=== PATIENT | female | born 1980 | race African-American/Black ===

== ENCOUNTER 2018-02-22 15:26 | Observation (INO) | payer SELFPAY ==
[~2018-02-22] VITALS: Ht 165.1 cm; Wt 64.4 kg
[2018-02-22] MEDS ORDERED: ASPIRIN 81 MG CHEW TAB PO ONE (15:45)
[2018-02-22 16:04] LABS: BASOPHILS % 0.4 % (0.0-1.0); EOSINOPHILS # (AUTO) 0.2 (0.0-0.4); EOSINOPHILS % 3.1 % (0.0-6.0); HEMATOCRIT 37.3 % (34.2-44.1); HEMOGLOBIN 12.6 g/dL (12.0-16.0); LYMPHOCYTES # (AUTO) 2.5 (1.0-3.2); LYMPHOCYTES % 33.6 % (18.0-39.1); MEAN CORPUSCULAR HEMOGLOBIN 32.5 pg (28-32); MEAN CORPUSCULAR HGB CONC 33.8 g/dL (31-35); MEAN CORPUSCULAR VOLUME 96.1 fL (81-99); MONOCYTES # (AUTO) 0.6 (0.2-0.8); MONOCYTES % 7.9 % (4.4-11.3); NEUTROPHILS # (AUTO) 4.1 (2.1-6.9); NEUTROPHILS % 54.7 % (38.7-80.0); PLATELET COUNT 374 x10e3/uL (140-360); RED BLOOD COUNT 3.88 x10e6/uL (3.6-5.1); RED CELL DISTRIBUTION WIDTH 12.5 % (11.7-14.4)
[2018-02-22 16:13] LABS: INR 0.93; PROTHROMBIN TIME 11.7 seconds (11.9-14.5)
[2018-02-22 16:13] LABS: BILIRUBIN,URINE NEGATIVE (NEGATIVE); CLARITY,URINE CLEAR (CLEAR); COLOR,URINE YELLOW (YELLOW); KETONES,URINE NEGATIVE (NEGATIVE); LEUKOCYTE ESTERASE ,URINE NEGATIVE (NEGATIVE); NITRITE,URINE NEGATIVE (NEGATIVE); PROTEIN,URINE DIPSTICK NEGATIVE (NEGATIVE); URINE UROBILINOGEN 0.2 mg/dL (0.2 - 1)
[2018-02-22 16:14] LABS: PARTIAL THROMBOPLASTIN TIME 23.6 seconds (23.8-35.5)
[2018-02-22 16:16] LABS: EPITHELIAL CELLS,URINE FEW /LPF; RBC,URINE 0-5 /HPF (0-5); WBC,URINE (MAN) 0-5 /HPF (0-5)
[2018-02-22 16:17] LABS: MUCUS,URINE FEW (RARE)
[2018-02-22 16:23] LABS: ALANINE AMINOTRANSFERASE 26 IU/L (0-55); ALBUMIN 3.7 g/dL (3.5-5.0); ALBUMIN/GLOBULIN RATIO 1.1 (0.8-2.0); ALKALINE PHOSPHATASE 60 IU/L (40-150); ANION GAP 13.4 mmol/L (8-16); BLOOD UREA NITROGEN 15 mg/dL (7-26); BUN/CREATININE RATIO 13 (6-25); CALCIUM 9.6 mg/dL (8.4-10.2); CARBON DIOXIDE 32 mmol/L (22-29); CHLORIDE 98 mmol/L (98-107); CREATINE KINASE 112 IU/L (29-168); CREATININE, SERUM 1.14 mg/dL (0.57-1.11); POTASSIUM 4.4 mmol/L (3.5-5.1); SODIUM 139 mmol/L (136-145)
[2018-02-22 16:24] LABS: EST GLOMERULAR FILTRATION RATE > 60 ML/MIN (60-)
[2018-02-22 16:25] LABS: GLUCOSE 546 mg/dL (74-118)
--- NOTE | 2018-02-22 17:36 | Diagnostic Imaging Report ---
PROCEDURE: A single AP view of the chest. COMPARISON: None. INDICATIONS: CHEST PAIN SINCE YESTERDAY FINDINGS: Lines/tubes: None. Lungs: The lungs are well inflated and clear. There is no evidence of pneumonia or pulmonary edema. Pleura: There is no pleural effusion or pneumothorax. Heart and mediastinum: The heart and the mediastinum are unremarkable. Bones: No acute bony abnormality. IMPRESSION: 1. No acute cardiopulmonary disease. Dictated by: Mack Amado M.D. on 02/22/2018 at 17:42 Electronically approved by: Mack Amado M.D. on 02/22/2018 at 17:42
[2018-02-22] MEDS ORDERED: INSULIN REGULAR, HUMAN 100 UNIT/1 ML 3ML VIAL IV STA (17:58)
[2018-02-22] MEDS ORDERED: SODIUM CHLORIDE 0.9% 1000ML 1,000 ML ONE (18:05)
[2018-02-22] MEDS ORDERED: SODIUM CHLORIDE 0.9% 1000ML 1,000 ML IV SCH (18:15)
[2018-02-22] MEDS ORDERED: CEFTRIAXONE SOD 1 GM VIAL IV SCH (18:15)
[2018-02-22] MEDS ORDERED: SODIUM CHLORIDE FLUSH 10 ML SYR INJ PRN (18:30)
[2018-02-22] MEDS ORDERED: MORPHINE SULFATE 2 MG/ML SYR IV PRN (18:30)
[2018-02-22] MEDS ORDERED: ONDANSETRON HCL INJ 2 MG/ML VIAL IV PRN (18:30)
[2018-02-22] MEDS ORDERED: DEXTROSE 50% SYRINGE 50 ML IV PRN (18:30)
[2018-02-22] MEDS ORDERED: CLOPIDOGREL BISULFATE 75 MG TAB PO STA (18:42)
[2018-02-22] MEDS: METOPROLOL TARTRATE 25 MG TAB PO SCH (19:19)
--- NOTE | 2018-02-22 20:53 | History and Physical ---
This is a 37-year-old female who comes in with chest pain. HISTORY OF PRESENT ILLNESS: Ms. Alonzo is a known type 1 diabetic with uncontrolled diabetes mellitus. She was in her usual state of health until this morning when the patient started to have chest pain after dropping her child off. The chest pain is characterized as squeezing in nature and 6/10 in severity with no radiation. The patient came into the emergency room and was admitted for chest pain. The patient has a history of coronary artery disease. PAST MEDICAL HISTORY: History of coronary artery disease with left heart cath with a stent and she is not sure where she had it, but she had a 90% block. She apparently still has a 30% blockage in some artery, but unsure about her medical history. MEDICATIONS: She is unsure, but of what she can remember she takes Plavix, aspirin 81 mg, lisinopril, carvedilol, insulin 30 units in the morning and 15 units of regular in the morning and 20 and 10 of regular in the evening. She also takes Valtrex also for genitalia herpes infections. PAST SURGICAL HISTORY: Left heart cath, history of cholecystectomy tube. PHYSICAL EXAMINATION GENERAL: The patient is alert and oriented x3. HEENT: Normocephalic, atraumatic. Pupils react to light and accommodation. CVS: S1 and S2 normal. Regular rate and rhythm. ABDOMEN: Nontender and nondistended. EXTREMITIES: No cyanosis, clubbing or edema. LABORATORY DATA: Chemistries: Sodium 139, potassium 4.4, BUN 15, creatinine 1.14, glucose 546. Troponin less than 0.001. Hematology: White count is 7.45. Neutrophil count is 54.7. Urine negative for ketones. ASSESSMENT: 1. Chest pain. 2. History of coronary artery disease. 3. Uncontrolled diabetes mellitus. Will start her back on insulin. 4. Will restart home medications when we get it. 5. Will continue to monitor the patient. 6. Dr. Oconnell has been consulted for chest pain. 7. Further recommendations depending on clinical course. 8. Will see the patient in morning and will check her labs in the morning. Job#: [id number]
[2018-02-22] MEDS ORDERED: ATORVASTATIN 20 MG TAB PO SCH (21:00)
[2018-02-22] MEDS ORDERED: NPH, HUMAN INSULIN ISOPHANE 100 UNIT/1 ML 3ML VIAL SQ SCH (21:00)
[2018-02-22 21:16] LABS: ALANINE AMINOTRANSFERASE 23 IU/L (0-55); ALBUMIN 3.2 g/dL (3.5-5.0); ALBUMIN/GLOBULIN RATIO 1.1 (0.8-2.0); ALKALINE PHOSPHATASE 52 IU/L (40-150); BLOOD UREA NITROGEN 17 mg/dL (7-26); BUN/CREATININE RATIO 22 (6-25); CALCIUM 9.1 mg/dL (8.4-10.2); CARBON DIOXIDE 28 mmol/L (22-29); CHLORIDE 105 mmol/L (98-107); CREATININE, SERUM 0.78 mg/dL (0.57-1.11); EST GLOMERULAR FILTRATION RATE > 60 ML/MIN (60-); GLUCOSE 253 mg/dL (74-118); SODIUM 141 mmol/L (136-145)
--- NOTE | 2018-02-22 21:41 | Consultation ---
DATE OF CONSULTATION: February 22, 2018 CARDIOLOGY CONSULTATION REASON FOR CONSULTATION: Chest pain. HISTORY OF PRESENT ILLNESS: Ms. Alonzo is a 37-year-old lady with past medical history of type 1 diabetes, diagnosed 24 hours ago; CAD with prior history of stenting in December of 2016 in [place], [place]; history of bipolar disorder who presents with chest pain. Patient reports chest pain started yesterday morning at 5 a.m. and reports it as a constant, sharp left sternal stabbing sensation radiating to her left back region. She reports the pain 6/10 to 8/10, slightly worsened when she takes a deep breath in. No tenderness and not related to any position. She denies any shortness of breath with the chest pain. She reports that this chest pain was in certain ways similar to her prior chest pain back approximately a year ago, which eventually led to her stenting done. Thus far, despite her ongoing and continuous chest pain, her first set of enzyme is strongly negative with a troponin of less than 0.001 and a CK-MB of 1.2. EKG reveals normal sinus rhythm and nonspecific T-wave changes. We had an extensive discussion with the patient in terms of differential diagnosis. Patient does report that she is in the process of moving here and recently drove from [place], [place] approximately a week ago. She denies any calf pain or tenderness and denies any lower extremity swelling. PAST MEDICAL HISTORY: 1. Type 1 diabetes, diagnosed 24 years ago. 2. Coronary artery disease with prior history of stenting in December of 2016, unknown anatomy. 3. Bipolar disorder. PAST SURGICAL HISTORY: 1. History of hysterectomy in 2013. 2. History of bilateral tubal ligation, 2004. 3. History of trigger finger surgery in June of 2016. 4. History of left lump surgery in 2008. FAMILY HISTORY: Mother alive at 63 with hypertension. Father alive, unknown history. SOCIAL HISTORY: She is a 3 cigarettes per day smoker. Denies any alcohol or illicit drug use. ALLERGIES: NO KNOWN DRUG ALLERGIES. HOME MEDICATIONS: Includes: 1. Plavix 75 mg daily. 2. Aspirin 81 mg daily. 3. Lisinopril daily. 4. Insulin NPH 30 units subcutaneous q.a.m. and 20 units NPH subcutaneous q.p.m. 5. Insulin regular 15 units subcutaneous q.a.m. and 10 units subcutaneous nightly. REVIEW OF SYSTEMS: GENERAL: Denies any fevers, chills, or any weight changes. HEENT: Has occasional headaches. No sore throat, stuffy nose. RESPIRATORY: Chest pain as per HPI. Denies any shortness of breath. CARDIOVASCULAR: As per HPI. Denies any palpitations, orthopnea, PND. GI: Denies any abdominal pain, nausea, vomiting, bright red blood per rectum, melena, hematemesis. : Denies any dysuria, pyuria, or any changes in urinary frequency. MUSCULOSKELETAL: Denies any knee pain, arthritis like swelling. ENDOCRINE: Positive for type 1 diabetes. NEUROLOGIC: Positive for slight neuropathy. Denies any focal weakness, seizures. Remainder of review of systems negative otherwise mentioned. PHYSICAL EXAMINATION: VITAL SIGNS: Height of 65 inches, weight of 137 pounds, BMI is 22.8. Temperature of 98.0, pulse of 92, respiratory rate 18, blood pressure is 151/98, O2 sat 99% on room air. GENERAL: This is a well-nourished, well-developed lady, who is currently in no apparent distress. HEENT: Normocephalic, atraumatic. Pupils are equal, round, and reactive to light. Extraocular movements are intact. Oropharynx is clear. NECK: No elevation of jugular venous pulsation. No carotid bruits. CARDIOVASCULAR: Regular rate and rhythm. Normal S1 and S2. Soft 1/6 systolic murmur at left lower sternal border. There is no chest wall tenderness to palpation. LUNGS: Clear to auscultation bilaterally with fair air entry. ABDOMEN: Soft, nontender, nondistended with normoactive bowel sounds. No hepatosplenomegaly. BACK: No costovertebral angle tenderness. EXTREMITIES: Warm with 2+ bilateral radial pulses, 1+ to 2+ pedal pulses, and 1+ to 2+ femoral pulses. NEUROLOGIC: Cranial nerves II through XII are intact. Strength is 5/5. Grossly nonfocal. PSYCH: Positive for anxiety. No hallucinations. LABS: White count is 7.4, hemoglobin 12.6, hematocrit of 37.3, platelets of 374,000. Sodium 139, potassium 4.4, chloride 98, bicarb 32, BUN 15, creatinine 1.14, glucose of 546, calcium of 9.6. AST 24, ALT 26, alk phos 60, total protein 7.1, albumin of 3.7. BNP is 67.5. Troponin is less than 0.001. MB is 1.2. INR is 0.93. UA is negative except for 3+ glucose. Chest x-ray is unremarkable. EKG is normal sinus rhythm and nonspecific T-wave changes. DIAGNOSES: 1. Precordial chest pain, here for rule out acute coronary syndrome. 2. Coronary artery disease with prior history of percutaneous coronary intervention in December of 2016. 3. Type 1 diabetes with complications, diagnosed 24 years ago with current hyperglycemia. 4. Tobacco dependence. PLAN/RECOMMENDATIONS: 1. Will continue aspirin and Plavix therapy. 2. Statin therapy. 3. Beta cody therapy. Continue YARA inhibitor therapy. 4. Restart home insulin therapy. 5. Cycle her serial cardiac enzymes. 6. In light of her recent move from [place], [place] and features of the chest pain, will go ahead and order CT PE protocol to rule out that process. 7. Depending on the labs, if negative and patient agrees, will proceed with ischemic risk stratification tomorrow a.m. with TMT. Otherwise, if biomarkers are positive or clinical status changes, will go ahead and proceed with cardiac catheterization. All this was explained to the patient. Patient is agreeable. Job#: [id number] DR MCCLAIN
[2018-02-22] MEDS: SODIUM CHLORIDE 0.9% 1000ML 1,000 ML IV SCH (22:16)
[2018-02-22] MEDS: INSULIN REGULAR, HUMAN 100 UNIT/1 ML 3ML VIAL SQ SCH (22:16)
--- NOTE | 2018-02-22 22:19 | Diagnostic Imaging Report ---
EXAM: CT Chest WITH contrast 02/22/2018 8:32 PM INDICATION: Chest pain COMPARISON: None TECHNIQUE: Chest was scanned utilizing a multidetector helical scanner from the lung apex through the level of the adrenal glands without administration of IV contrast. Coronal and sagittal reformations were obtained. PE protocol was performed. IV CONTRAST: 65 mL of Isovue-370 RADIATION DOSE: Total DLP: 400.91 mGy*cm Estimated effective dose: (DLP x 0.014 x size factor) mSv COMPLICATIONS: None FINDINGS: LINES/ TUBES: None. LUNGS AND AIRWAYS: The lungs are unremarkable. Airways are normal. PLEURA: The pleural spaces are clear. HEART AND MEDIASTINUM: The thyroid gland is normal. No mediastinal, hilar or axillary lymphadenopathy. The heart is normal in size.. There is no pericardial effusion. There are mild atherosclerotic calcifications in the aorta and coronary arteries. Left coronary stent along the circumflex artery. UPPER ABDOMEN: 4 mm stone in the upper moiety of the left renal collecting system. BONES: The visualized bony thorax is within normal limits. SOFT TISSUES: Unremarkable. IMPRESSION: 1. No evidence of acute intrathoracic abnormality. No evidence of pulmonary embolism. 2. There is a 4 mm stone in the upper moiety of the left renal collecting system. Signed by: Dr. Jean Marie Cash M.D. on 02/22/2018 10:16 PM
[2018-02-22 22:59] VITALS: BP 131/84
[2018-02-23] VITALS: BP 131/84
[2018-02-23 00:29] LABS: CREATINE KINASE 82 IU/L (29-168)
[2018-02-23] MEDS ORDERED: SODIUM CHLORIDE 0.9% 50ML 50 ML ONE (00:50)
[2018-02-23] MEDS ORDERED: IOPAMIDOL 370 MG/ML 200 ML INFUS..BTL INJ ONE (00:50)
[2018-02-23 04:00] VITALS: BP 121/71
[2018-02-23] MEDS: METOPROLOL TARTRATE 25 MG TAB PO SCH (06:09)
[2018-02-23 06:10] LABS: BASOPHILS % 0.3 % (0.0-1.0); EOSINOPHILS # (AUTO) 0.4 (0.0-0.4); EOSINOPHILS % 4.2 % (0.0-6.0); HEMATOCRIT 33.7 % (34.2-44.1); HEMOGLOBIN 11.1 g/dL (12.0-16.0); LYMPHOCYTES # (AUTO) 2.9 (1.0-3.2); LYMPHOCYTES % 33.4 % (18.0-39.1); MEAN CORPUSCULAR HEMOGLOBIN 31.9 pg (28-32); MEAN CORPUSCULAR HGB CONC 32.9 g/dL (31-35); MEAN CORPUSCULAR VOLUME 96.8 fL (81-99); MONOCYTES # (AUTO) 0.8 (0.2-0.8); MONOCYTES % 9.5 % (4.4-11.3); NEUTROPHILS # (AUTO) 4.6 (2.1-6.9); NEUTROPHILS % 52.4 % (38.7-80.0); PLATELET COUNT 327 x10e3/uL (140-360); RED BLOOD COUNT 3.48 x10e6/uL (3.6-5.1); RED CELL DISTRIBUTION WIDTH 12.7 % (11.7-14.4)
--- NOTE | 2018-02-23 06:18 | Diagnostic Imaging Report ---
EXAMINATION: CHEST SINGLE (PORTABLE) INDICATION: Chest pain. COMPARISON: CT of the chest on 02/22/2018 FINDINGS: TUBES and LINES: None. LUNGS: Lungs are well inflated. Lungs are clear. There is no evidence of pneumonia or pulmonary edema. PLEURA: No pleural effusion or pneumothorax. HEART AND MEDIASTINUM: The cardiomediastinal silhouette is unremarkable. BONES AND SOFT TISSUES: No acute osseous lesion. Soft tissues are unremarkable. UPPER ABDOMEN: No free air under the diaphragm. IMPRESSION: No acute thoracic abnormality. Signed by: Dr. Jean Marie Cash M.D. on 02/23/2018 6:15 AM
[2018-02-23] MEDS ORDERED: HUMULIN R100 UNIT/2 SQ ×2 (06:28)
[2018-02-23] MEDS ORDERED: ASPIR 8181 MG PO (06:28)
[2018-02-23] MEDS ORDERED: PLAVIX75 MG PO (06:28)
[2018-02-23] MEDS ORDERED: LISINOPRIL2.5 MG PO (06:28)
[2018-02-23] MEDS ORDERED: VALTREX500 MG PO (06:28)
[2018-02-23] MEDS ORDERED: NOVOLIN N100 UNIT/1 SQ ×2 (06:28)
[2018-02-23] MEDS ORDERED: TOPAMAX25 MG PO (06:28)
[2018-02-23 06:38] LABS: INR 0.92; PROTHROMBIN TIME 11.6 seconds (11.9-14.5)
[2018-02-23 06:46] LABS: ANION GAP 10.9 mmol/L (8-16); BLOOD UREA NITROGEN 17 mg/dL (7-26); BUN/CREATININE RATIO 26 (6-25); CALCIUM 8.9 mg/dL (8.4-10.2); CARBON DIOXIDE 25 mmol/L (22-29); CHLORIDE 106 mmol/L (98-107); CHOL/HDL RATIO 2.2 (3.0-3.6); CHOLESTEROL 203 MD/DL (0-199); CREATININE, SERUM 0.66 mg/dL (0.57-1.11); EST GLOMERULAR FILTRATION RATE > 60 ML/MIN (60-); GLUCOSE 120 mg/dL (74-118); HDL CHOLESTEROL 93 MG/DL (40-60); LDL CHOLESTEROL 90 MG/DL (60-130); POTASSIUM 3.9 mmol/L (3.5-5.1); SODIUM 138 mmol/L (136-145); TRIGLYCERIDES 102 MG/DL (0-149)
[2018-02-23 07:09] LABS: CREATINE KINASE MB 0.8 ng/mL (0-5.0)
[2018-02-23] MEDS: INSULIN REGULAR, HUMAN 100 UNIT/1 ML 3ML VIAL SQ SCH (07:30)
[2018-02-23 07:34] VITALS: BP 139/77
[2018-02-23 08:03] VITALS: BP 141/90
[2018-02-23] MEDS ORDERED: NPH, HUMAN INSULIN ISOPHANE 100 UNIT/1 ML 3ML VIAL SQ SCH (09:00)
[2018-02-23] MEDS ORDERED: ASPIRIN 325 MG TAB EC PO SCH (09:00)
[2018-02-23] MEDS: SODIUM CHLORIDE 0.9% 1000ML 1,000 ML IV SCH (10:05)
--- NOTE | 2018-02-23 10:23 | Cardiology Report ---
DATE OF STUDY: February 23, 2018 EXERCISE TREADMILL STRESS TEST INDICATIONS FOR STUDY: A 37-year-old lady with history of type 1 diabetes and prosthetic coronary artery about a year ago presenting with atypical chest pain. DESCRIPTION OF PROCEDURE: After risks, benefits, pros, and cons of the exercise treadmill stress test explained, the patient agreed to proceed. The patient was brought down to the stress lab where a 12-lead EKG monitoring and blood pressure monitoring was obtained. She exercised on a Guzman protocol exercising for a total duration of 6 minutes and 48 seconds going from a baseline heart rate of 78 to a maximum of about 120 beats per minute shy of target heart rate of 155 beats per minute. Blood pressure went from a baseline of 141/89 to a maximum of 204/93, which is an appropriate blood pressure response. She exercised for a total duration of 7 mets, and underlying EKG revealed normal sinus rhythm, LVH type changes and nonspecific T-wave inversions in 2, 3 and aVF, as well as V5 and V6 that showed no change with exercise. Her test was stopped on account of legs fatigued, and her heart rate might have been attenuated slightly from underlying beta blockade on board. With the exercise, the patient started off with low level 3-4 chest pain that was constant. With exercise, there was no change in the quality of her chest pain symptoms. The patient did not show signs of exertional shortness of breath or fatigue. CONCLUSIONS 1. Overall, this is a negative submaximal exercise treadmill stress testing. 2. No change in quality of her chest pain with exercise. 3. Limitations of the interpretation of the study successfully explained to the patient. It was agreeable to wanting medical therapy at this time with strongly negative prior cardiac biomarkers. Job#: [id number] [place]
[2018-02-23 11:15] VITALS: BP 141/84
== END 2018-02-23 14:39 | disposition home or self-care (01) ==
LOC: ER 15:26 → ERHOLD 19:09 → IMCU 22:49
PROVIDERS: ADMIT Family Medicine; ATTEND Family Medicine
DX: R07.2 Precordial pain (principal); K04.6 Periapical abscess with sinus; K02.9 Dental caries, unspecified; I25.10 Atherosclerotic heart disease of native coronary artery without angina pectoris; E10.65 Type 1 diabetes mellitus with hyperglycemia; Z79.4 Long term (current) use of insulin; Z95.5 Presence of coronary angioplasty implant and graft; F31.9 Bipolar disorder, unspecified; F17.210 Nicotine dependence, cigarettes, uncomplicated; N20.0 Calculus of kidney
CPT/HCPCS: 36415; 71045 ×2; 71260; 80048; 80053; 80061; 81001; 82550 ×2; 82553 ×2; 82948; 83036; 83880; 84443; 84484 ×2; 85025 ×2; 85610 ×2; 85730; 93005; 93017; 99284; G0378 ×2; J0696; J7030; Q9967

== ENCOUNTER 2019-01-13 17:16 | Emergency (ER) | payer SELFPAY ==
[~2019-01-13] VITALS: Ht 165.1 cm; Wt 73.9 kg
[~2019-01-13 17:16] MED LIST: ASPIR 8181 MG PO; HUMULIN R100 UNIT/2 SQ; LISINOPRIL2.5 MG PO; NOVOLIN N100 UNIT/1 SQ; PLAVIX75 MG PO; TOPAMAX25 MG PO; VALTREX500 MG PO
[2019-01-13] MEDS ORDERED: HYDROCODONE/APAP 5MG-325MG TAB PO ONE (17:45)
[2019-01-13] MEDS ORDERED: HYDROCODONE/APAP 5MG-325MG TAB ONE (17:48)
--- NOTE | 2019-01-13 18:19 | Diagnostic Imaging Report ---
FOOT 2VIEW RT - [facility]OP[facility] - 2 views HISTORY: Pain COMPARISON: None available. FINDINGS: Bones: No acute displaced fracture. Osseous alignment is within normal limits. Joints: No malalignment. Soft tissues: The soft tissues appear unremarkable. IMPRESSION: No acute radiographic abnormality. Signed by: Dr. Mack Amado MD on 01/13/2019 6:16 PM
--- NOTE | 2019-01-13 18:25 | Diagnostic Imaging Report ---
ANKLE 3 VIEW RT - [facility]D - 3 views HISTORY: Pain COMPARISON: None available. FINDINGS: Bones: No acute displaced fracture. Osseous alignment is within normal limits. Joints: The joint spaces are well-maintained. Soft tissues: The soft tissues appear unremarkable. IMPRESSION: No acute fracture or dislocation of the right ankle. Signed by: Dr. Mack Amado MD on 01/13/2019 6:22 PM
== END 2019-01-13 18:53 | disposition home or self-care (01) ==
LOC: FSED 17:16
DX: S93.491A Sprain of other ligament of right ankle, initial encounter (principal); S93.611A Sprain of tarsal ligament of right foot, initial encounter; X50.1XXA Overexertion from prolonged static or awkward postures, initial encounter; Y92.008 Other place in unspecified non-institutional (private) residence as the place of occurrence of the external cause; E11.9 Type 2 diabetes mellitus without complications; F17.210 Nicotine dependence, cigarettes, uncomplicated
CPT/HCPCS: 99283

== ENCOUNTER 2019-11-22 04:22 | Inpatient (IN) | payer OTHER ==
[~2019-11-22] VITALS: Ht 165.1 cm; Wt 61.2 kg
--- OUTSIDE RECORDS SUMMARY | 2019-11-22 04:25 | XMS REPORT | Clinical Summary ---
Author Author [facility] Organization [facility] Address Unknown Phone Unavailable Care Team Providers Care Customer Service Driver Name Role Phone Asked, No Pcp PCP Unavailable Allergies No Known Allergies Medications End Date Status Medication Sig Dispensed Refills Start Date Active insulin regular Infuse 10 0 (HumuLIN-R, NovoLIN-R) Units into a 100 unit/mL injection venous catheter once. 10 units in morning before she eats & 7 units before dinner Active insulin NPH (HumuLIN-N) Inject 30 0 100 unit/mL injection Units under the skin. Pt does 30 units in the morning before breakfast and 15 units before dinner Active aspirin (ECOTRIN) 81 MG Take 81 mg by 0 enteric coated tablet mouth daily. 03/27/2019 Discontinued clindamycin (CLEOCIN) 300 Take 1 40 capsule 0 03/27/201 MG capsule capsule (300 9 mg total) by mouth 4 (four) times a day for 10 days. 03/27/2019 Discontinued penicillin v potassium Take 1 tablet 40 tablet 0 0 (VEETID) 500 MG tablet (500 mg 9 total) by mouth 4 (four) times a day for 10 days. 04/06/2019 clindamycin (CLEOCIN) 300 Take 1 40 capsule 0 03/27/201 MG capsule capsule (300 9 mg total) by mouth 4 (four) times a day for 10 days. Active Problems Not on file Encounters Care Team Description Date Type Specialty Michelle Rockwell MD Dental abscess (Primary Dx) 03/27/2019 Emergency Emergency Medicine 03/27/2019 Travel after 11/21/2018 Social History Date Tobacco Use Types Packs/Day Years Used Current Every Day Smoker Cigarettes 0.25 Smokeless Tobacco: Never Used Drinks/Week oz/Week Comments Alcohol Use Never Alcohol Habits Answer Date Recorded How often do you have a drink containing alcohol? Never 03/27/2019 How many drinks containing alcohol do you have on No t asked a typical day when you are drinking? How often do you have six or more drinks on one Not asked occasion? Sex Assigned at Date Recorded Not on file Industry Job Start Date Occupation Not on file Not on file Not on file Travel End Travel History Travel Start No recent travel history available. 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
[2019-11-22] MEDS ORDERED: SODIUM CHLORIDE FLUSH 10 ML SYR INJ PRN (05:00)
[2019-11-22] MEDS ORDERED: ENOXAPARIN INJ 80 MG/0.8 ML SYR SC STA (05:04)
[2019-11-22] MEDS ORDERED: CLOPIDOGREL BISULFATE 300 MG TAB-DO NOT STOCK PO ONE (05:15)
[2019-11-22] MEDS ORDERED: ASPIRIN 81 MG CHEW TAB PO ONE (05:15)
[2019-11-22] MEDS ORDERED: NITROGLYCERIN 2% OINT 1 GM PKT TOP STA (05:27)
[2019-11-22] MEDS ORDERED: ONDANSETRON HCL INJ 2MG/ML 2ML 2 MG/ML VIAL IV PRN (05:30)
[2019-11-22] MEDS ORDERED: INSULIN REGULAR, HUMAN 100 UNIT/1 ML 3ML VIAL IV STA (05:32)
--- OUTSIDE RECORDS SUMMARY | 2019-11-22 05:38 | XMS REPORT | Clinical Summary ---
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
[2019-11-22] MEDS ORDERED: INSULIN REGULAR, HUMAN 3ML VL 100 UNIT in SODIUM CHLORIDE 0.9% 100 ML 99 ML IV STA ×2 (05:44)
[2019-11-22] MEDS ORDERED: CLOPIDOGREL BISULFATE 75 MG TAB ONE (05:45)
[2019-11-22] MEDS ORDERED: NITROGLYCERIN 2% OINT 1 GM PKT ONE (05:46)
[2019-11-22] MEDS ORDERED: FAMOTIDINE 20 MG/2 ML VIAL IV ONE (05:46)
[2019-11-22] MEDS ORDERED: ENOXAPARIN SODIUM INJ 100 MG/ML SYR SC ONE (05:46)
[2019-11-22] MEDS: FAMOTIDINE 20 MG/2 ML VIAL IV SCH ×2 (05:46→17:34)
[2019-11-22] MEDS ORDERED: ASPIRIN 81 MG CHEW TAB ONE (05:46)
--- NOTE | 2019-11-22 05:53 | Emergency Department Note ---
History of Present Illnes History of Present Illness Chief Complaint: Chest Pain Stated Complaint: CHEST PAIN History of Present Illness This is a 39 year old female. was doing well until 1 week ago then substernal cp. Historian: Patient Intellectual Property Counsel Required: No Onset (how long ago): week(s) (1) Location: substernal Quality: sharp Radiation: neck, extremity (lue), other (not back) Severity: moderate Onset quality: gradual Duration (how long): week(s) (1) Timing of current episode: constant Progression: worsening Chronicity: new Context: non-compliance w/ medications (pt has not taken meds since cardiac stent placement ), other Relieving factors: none Exacerbating factors: movement Associated symptoms: chest pain, shortness of breath Treatments prior to arrival: none Risk factors: htn. dm, hypercholesterolemia, cad, (KELECHI CHAMBERLAIN) History of Present Illness She has type 1 diabetes, coming from [place] Treatments prior to arrival: other (took 20 units of NPH, 10 units of regular insulin at 2:30 am) (BRO BASILIO MD) Past Medical/Family History Physician Review I have reviewed the patient's past medical and family history. Any updates have been documented here. (KELECHI CHAMBERLAIN) Past Medical History Recent Fever: No Clinical Suspicion of Infectio: No New/Unexplained Change in Ment: No Past Medical History: Hypertension, Diabetes, Hyperlipedemia Other Medical History: genital herpes, 2 heart stents, , lump removed from right breast, Past Surgical History: Hysterectomy, Tubal Ligation, Lumpectomy Other Surgery: aortic stent, angioplasty with stents trigger finger surgery (KELECHI CHAMBERLAIN) Recent Fever: No Clinical Suspicion of Infectio: No Past Medical History: Diabetes (BRO BASILIO MD) Social History Smoking Cessation: Current every day smoker Counseling Performed: Yes Alcohol Use: None Any Illegal Drug Use: No TB Exposure/Symptoms: No Physically hurt or threatened: No (KELECHI CHAMBERLAIN) Any Illegal Drug Use: No Physically hurt or threatened: No (BRO BASILIO MD) Family History Family history of heart diseas: Yes (KELECHI CHAMBERLAIN) Other Last Tetanus: UNKNOWN Any Pre-Existing Lines (PICC,: No Is patient up to date on immun: No Last Flu: NO Last Pneumovax: NO (KELECHI CHAMBERLAIN) Any Pre-Existing Lines (PICC,: No (BRO BASILIO MD) Review of Systems Review of Systems Constitutional: no symptoms EENTM: no symptoms Cardiovascular: as per HPI, chest pain Gastointestinal/Abdominal: no symptoms Genitourinary: no symptoms Musculoskeletal: neck pain Integumentary: no symptoms Neurological: no symptoms Psychological: no symptoms Endocrine: no symptoms Hematological/Lymphatic: no symptoms Review of other systems All other systems reviewed and negative. (KELECHI CHAMBERLAIN) Physical Exam Related Data Allergies: Coded Allergies: No Known Allergies (Unverified , 02/22/18) Triage Vital Signs Vital Signs Date Time Temp Pulse Resp B/P (MAP) Pulse Ox O2 Delivery O2 Flow Rate FiO2 11/22/19 04:28 97.1 84 17 144/83 99 (KELECHI CHAMBERLAIN) Physical Exam CONSTITUTIONAL Constitutional: well-developed, well-nourished HENT HENT: normocephalic, atraumatic, oropharynx clear/moist, nose normal HENT - Ear: left ext ear normal, right ext ear normal EYES Eyes: PERRL, conjunctivae normal NECK Neck: ROM normal, supple PULMONARY Pulmonary: effort normal, breath sounds normal CARDIOVASCULAR Cardiovascular: regular rhythm, heart sounds normal, capillary refill normal, normal rate GASTROINTESTINAL Abdominal: soft, nontender, bowel sounds normal GENITOURINARY SKIN Skin: warm, dry MUSCULOSKELETAL Musculoskeletal: ROM normal NEUROLOGICAL Neurological: alert, oriented x 3, no gross motor or sensory deficits PSYCHOLOGICAL Psychiatric/behavioral: mood/affect normal, judgement normal (KELECHI CHAMBERLAIN) older than her stated age Cardiovascular: tachycardia Genitourinary: exam deferred (BRO BASILIO MD) Results Laboratory Lab results reviewed: Yes (CBC NORMAL, BMP NORMAL EXCEPT GLUCOSE GREATER THAN 700, FE=012, LFT NORMAL EXCEPT UNY=387, CARDIAC ENZYMES NORMAL, BNP NORMAL, D DIMER= NORMAL, , CARDIAC ENZYMES NORMAL) (KELECHI CHAMBERLAIN) Lab results reviewed: Yes (CBC NORMAL, BMP NORMAL EXCEPT GLUCOSE GREATER THAN 700, LH=003, LFT NORMAL EXCEPT TZL=440, CARDIAC ENZYMES NORMAL, BNP NORMAL, D DIMER= NORMAL, , CARDIAC ENZYMES NORMAL) (BRO BASILIO MD) Imaging Y: Yes (CXR NORMAL) (KELECHI CHAMBERLAIN) Diagnostics Tests Diagnostic test(s) reviewed: Yes (EKG NSR, POOR R WAVE PROGRESSION, INVERTED T WAVES LATERAL LEADS, NOT ST SEGMENT ELEVATIONS, NORMAL AXIS, +LVH) (KELECHI CHAMBERLAIN) Diagnostic test(s) reviewed: Yes (EKG NSR, POOR R WAVE PROGRESSION, INVERTED T WAVES LATERAL LEADS, NOT ST SEGMENT ELEVATIONS, NORMAL AXIS, +LVH) (BRO BASILIO MD) Critical Care Time Subsequent provider I assumed direction of critical care for this patient from another provider of my specialty. (KELECHI CHAMBERLAIN) Total Critical Care Time (min): 45 Time ED Physician saw patient: 07:00 Critcal care necessary due to: endocrine crisis Critcal care time spent by me: develop tx plan w patient/surrogate, discussion w consultants, discussion w primary provider, examination of patient, obtaining hx from patient/surrogate, order/review laboratory studies, pulse oximetry, re- evaluation of patient condition Comments critical care time for unstable angina and severe hyperglycemia, tread with insulin drips, frequent chemistry check, IV fluid... (BRO BASILIO MD) Clinical Decision Tools HEART Score HEART Scort: HEART Scort Response (Comments) Value History Highly suspicious 2 Age < 45 0 Risk factors > or = 3 risk factors 2 Troponin 1-3x normal limit Total 4 Assessment & Plan Assessment & Plan Problems: (1) Unstable angina (2) Hyperglycemia Assessment & Plan ADMIT TO IMCU// SPOKE TO NURSE PEÑA(APPLIANCE SALES ASSOCIATE FOR DR RODRIGUEZ) AT 0515HRS. DR RAMIREZ -HEATING AND AIR CONDITIONING MECHANIC PAGED AT 0615HRS. spoke to dr ramirez at 0712 hrs and will see pt. pt has no more chest . signed out to dr basilio. pt is awaiting bed at the hospital (KELECHI CHAMBERLAIN) Problems: (1) Unstable angina (2) Hyperglycemia (3) Dehydration (BRO BASILIO MD) Reassessment Reassessment glucose 400's, k 3.3 Glucose now 243, hold off insulin drip (BRO BASILIO MD) Depart Disposition: ADMITTED Last Vital Signs Date Time Temp Pulse Resp B/P (MAP) Pulse Ox O2 Delivery O2 Flow Rate FiO2 11/22/19 04:28 97.1 84 17 144/83 99 (KELECHI CHAMBERLAIN) Home Meds Reported Medications Insulin Regular, Human (HUMULIN R) 100 Unit/1 Ml Vial, 10 UNITS SQ ACS 02/23/18 Insulin Regular, Human (HUMULIN R) 100 Unit/1 Ml Vial, 15 UNITS SQ ACB 02/23/18 Nph, Human Insulin Isophane (NOVOLIN N) 100 Unit/1 Ml Vial, 20 UNITS SQ ACS 02/23/18 Nph, Human Insulin Isophane (NOVOLIN N) 100 Unit/1 Ml Vial, 30 UNITS SQ ACB 02/23/18 Topiramate (TOPAMAX) 25 Mg Tablet, 200 MG PO BID 02/23/18 Lisinopril (LISINOPRIL) 2.5 Mg Tablet, 6.25 MG PO BID, #30 TAB 02/23/18 Valacyclovir Hcl (VALTREX) 500 Mg Tab, 500 MG PO BID, TAB 02/23/18 Aspirin (ASPIR 81) 81 Mg Tablet.dr, 81 MG PO DAILY 02/23/18 Clopidogrel Bisulfate* (PLAVIX) 75 Mg Tablet, 75 MG PO DAILY, #30 TAB 02/23/18 Medications in the ED Sodium Chloride 10 ml PRN PRN INJ IV SITE FLUSH; Start 11/22/19 at 05:00; Stop 12/22/19 at 04:59 Aspirin 324 mg ONCE ONCE PO ; Start 11/22/19 at 05:15; Stop 11/22/19 at 05:38; Status DC Clopidogrel Bisulfate 300 mg ONCE ONCE PO ; Start 11/22/19 at 05:15; Stop 11/22/19 at 05:38; Status DC Enoxaparin Sodium 70 mg ONCE STAT SC ; Start 11/22/19 at 05:04; Stop 11/22/19 at 05:39; Status DC (KELECHI CHAMBERLAIN) Attestation Medications in the ED insulin drips, potassium, NTG. (BRO BASILIO MD) KELECHI CHAMBERLAIN November 22, 2019 05:53 BRO BASILIO MD November 22, 2019 07:41
--- NOTE | 2019-11-22 06:05 | Diagnostic Imaging Report ---
EXAMINATION: CXR 1 W - HOP INDICATION: Chest pain COMPARISON: None FINDINGS: TUBES and LINES: None. LUNGS: Lungs are well inflated. Lungs are clear. There is no evidence of pneumonia or pulmonary edema. PLEURA: No pleural effusion or pneumothorax. HEART AND MEDIASTINUM: The cardiomediastinal silhouette is unremarkable. Coronary stents are noted. BONES AND SOFT TISSUES: No acute osseous lesion. Soft tissues are unremarkable. UPPER ABDOMEN: No free air under the diaphragm. IMPRESSION: No acute thoracic radiographic abnormality. Signed by: Everett Ornelas MD on 11/22/2019 6:02 AM
[2019-11-22] MEDS ORDERED: INSULIN REGULAR, HUMAN 100 UNIT/1 ML 3ML VIAL ONE (06:12)
[2019-11-22] MEDS ORDERED: SODIUM CHLORIDE 0.9% 100 ML ONE (06:12)
[2019-11-22] MEDS ORDERED: POTASSIUM CHLORIDE 20 MEQ TAB CR PO STA (06:49)
[2019-11-22] MEDS ORDERED: SODIUM CHLORIDE 0.9% 1000ML 1,000 ML IV STA (06:49)
--- NOTE | 2019-11-22 06:49 | NUR ---
REPORT TO BRENDAN SILVESTRE ALL QUESTIONS ANSWERED
[2019-11-22] MEDS ORDERED: POTASSIUM CHLORIDE 20 MEQ TAB CR PO ONE ×2 (07:27→07:28)
[2019-11-22] MEDS ORDERED: SODIUM CHLORIDE 0.9% 1000ML 1,000 ML ONE (07:28)
--- NOTE | 2019-11-22 07:28 | NUR ---
pt lying supine in bed, insulin infusing to left arm at rate of 6units per hour,. pt alert and A&O x 4. states she manages her Blood sugars at home using a sliding scale that she made up. pt confirmed that she does not check her blood sugars prior to giving herself insulin, pt educated on risk factors of not checking BS and giving self insulin, pt verbalized understanding. Pt states she can not remember the last time she seen her PCP. Stated it has been a long time. Second IV started 22 g to right forearm, NS infusing at 150 cc/hr per order. VSS at this time. BMP completed. Blood sugaer 463. verbal order per DR Herman to decrease insulin gtt to 4 units/hr. potassium po given as ordered. will continue to monitor patient.
--- NOTE | 2019-11-22 07:38 | NUR ---
pt reported that she took 20units of N and 10 units of Reg at 0230 [address] AM. Reported to Dr Herman. no orders recieved. will continue to monitor pts BS Q1HR
--- NOTE | 2019-11-22 07:56 | NUR ---
[facility] notified of need for transfer, ETA 45 minutes.
--- NOTE | 2019-11-22 08:15 | NUR ---
Covid 19 test completed, procedure explained to patient and pt verbalized understanding.
--- NOTE | 2019-11-22 08:19 | NUR ---
Blood sugar check results 243 Dr Herman notified, verbal order to disscontinue insulin ggt at this time and to continue with Q1 hr BS.
[2019-11-22 09:46] VITALS: BP 113/84
[2019-11-22 09:57] VITALS: BP 113/84
--- NOTE | 2019-11-22 10:03 | NUR ---
patient received for [facility] via stretcher. see admit assess. sinus rhythm on monitor. Dr Santos here to see patient. echo ordered. vitals stable with no distress at this time.
[2019-11-22 10:36] LABS: ANION GAP 15.5 mmol/L (8-16); BLOOD UREA NITROGEN 17 mg/dL (7-26); BUN/CREATININE RATIO 17 (6-25); CARBON DIOXIDE 25 mmol/L (22-29); CHLORIDE 100 mmol/L (98-107); CREATININE, SERUM 1.01 mg/dL (0.57-1.11); EST GLOMERULAR FILTRATION RATE > 60 ML/MIN (60-); GLUCOSE 189 mg/dL (74-118); POTASSIUM 4.5 mmol/L (3.5-5.1); SODIUM 136 mmol/L (136-145)
[2019-11-22 10:43] LABS: CREATINE KINASE MB 2.1 ng/mL (0-5.0)
[2019-11-22 10:49] LABS: MAGNESIUM 1.8 MG/DL (1.3-2.1); PHOSPHORUS 3.8 MG/DL (2.3-4.7)
[2019-11-22] MEDS ORDERED: DEXTROSE 50% SYRINGE 50 ML IV PRN (11:00)
[2019-11-22] MEDS: INSULIN LISPRO 100 UNIT/1 ML 3ML VIAL SQ SCH ×3 (11:50→20:40)
[2019-11-22 12:00] VITALS: BP 120/72
[2019-11-22] MEDS: NITROGLYCERIN 2% OINT 1 GM PKT TOP SCH ×2 (12:00→17:34)
[2019-11-22 12:44] LABS: ANION GAP 14.2 mmol/L (8-16); BLOOD UREA NITROGEN 17 mg/dL (7-26); BUN/CREATININE RATIO 18 (6-25); CALCIUM 10.2 mg/dL (8.4-10.2); CARBON DIOXIDE 27 mmol/L (22-29); CHLORIDE 101 mmol/L (98-107); CREATININE, SERUM 0.96 mg/dL (0.57-1.11); EST GLOMERULAR FILTRATION RATE > 60 ML/MIN (60-); GLUCOSE 191 mg/dL (74-118); POTASSIUM 4.2 mmol/L (3.5-5.1); SODIUM 138 mmol/L (136-145)
[2019-11-22 13:07] LABS: CREATINE KINASE MB 3.5 ng/mL (0-5.0)
--- NOTE | 2019-11-22 13:09 | Consultation ---
DATE OF CONSULTATION: 11/22/2019 Cardiology Consultation CONSULTING PHYSICIAN: Mingo Roth MD, Interventional Cardiology. REASON FOR CONSULTATION: Chest discomfort. HISTORY OF PRESENT ILLNESS: A 39-year-old woman with history of type 2 diabetes mellitus, hypertension, dyslipidemia, history of coronary artery disease with remote previous coronary stents several years prior, in [place], [place], presents with complaints of one week onset of chest pressure worsening in frequency, intensity and duration lasting 5-10 minutes at a time, for which she decided to seek ER evaluation. She was noted to have significant elevations in blood glucose, which were treated first. Troponin was negative. The patient is currently chest discomfort free. REVIEW OF SYSTEMS: A 12-system review is negative except for as noted above. PAST MEDICAL HISTORY: As per HPI. SOCIAL HISTORY: Denies smoking, alcohol, or drugs. FAMILY HISTORY: Noncontributory. PHYSICAL EXAMINATION: VITAL SIGNS: Temperature afebrile, heart rate 104, blood pressure 117/76, respiratory rate 17, O2 saturation 99%. GENERAL: No acute distress, alert. NECK: No JVD. CHEST: Clear to auscultation. CARDIOVASCULAR: Regular rate and rhythm. Normal S1, S2. No S3, no S4. No murmurs, no rubs. ABDOMEN: Soft. Bowel sounds positive. EXTREMITIES: No edema. CARDIOVASCULAR MEDICATIONS: Reviewed. Simvastatin 40 mg at bedtime, aspirin 81 mg daily, clopidogrel 75 mg daily, Lovenox 1 mg/kg every 12 hours, nitroglycerin p.r.n. LABORATORY DATA: COVID test is ordered and pending. Chest x-ray with clear lungs and normal cardiomediastinal silhouette, coronary stents observed. ASSESSMENT: 1. A 39-year-old woman with history of coronary artery disease and remote coronary stents, presents with unstable angina. 2. Diabetes mellitus type 2, uncontrolled. 3. Hypertension. 4. Dyslipidemia. RECOMMENDATIONS: 1. IV fluids. 2. Optimize diabetes management. 3. Continue on antiplatelet therapy. 4. Statin therapy. 5. Add metoprolol 12.5 mg extended release daily. 6. Hold Lovenox after tonight's dose. 7. Discussed with patient at length the indications, alternatives, risks, and benefits for coronary angiography and possible intervention. The patient voices understanding. All questions have been addressed. The patient wishes to proceed. We will schedule for tomorrow a.m. MD ROXANA Machado/LORI /[id number]
[2019-11-22] MEDS: SODIUM CHLORIDE 0.9% 1000ML 1,000 ML IV SCH (13:30)
[2019-11-22 16:36] VITALS: BP 114/70
[2019-11-22 18:34] LABS: CREATINE KINASE MB 6.3 ng/mL (0-5.0)
[2019-11-22 20:00] VITALS: BP 119/73
[2019-11-22] MEDS ORDERED: ENOXAPARIN SOD INJ 40 MG/0.4 ML SYR SC ONE (20:00)
[2019-11-22] MEDS: VALACYCLOVIR HCL 500 MG TAB PO SCH (20:24)
[2019-11-22] MEDS: MORPHINE SULFATE 2 MG/ML SYR 1ML IV PRN (20:41)
[2019-11-22 21:00] VITALS: BP 119/73
[2019-11-22] MEDS ORDERED: SIMVASTATIN 40 MG TAB PO SCH (21:00)
--- NOTE | 2019-11-22 22:31 | History and Physical ---
PRIMARY CARE PHYSICIAN: Not listed. CONSULTING PHYSICIAN: Mingo Roth MD CHIEF COMPLAINT: Unstable angina. HISTORY OF PRESENT ILLNESS: The patient is a 39-year-old female with underlying history of type 2 diabetes mellitus, hypertension, dyslipidemia, coronary artery disease with remote previous coronary artery stent x1 in [place], [place], presenting with a complaint of one-week onset of chest pressure at its worst 7/10 on a scale of 0-10 in the center of the chest, which radiated down the left arm and up to the neck. The patient states the chest pressure was worsening in frequency, intensity and duration, lasting 5-10 minutes at a time. She decided to seek evaluation in the emergency department. Currently, the patient is chest discomfort free. PAST MEDICAL HISTORY: Type 2 diabetes mellitus, hypertension, hyperlipidemia, coronary artery disease. PAST SURGICAL HISTORY: Coronary artery stent x1 in January 2017, total abdominal hysterectomy, bilateral tubal ligation, right hand trigger finger surgery. FAMILY HISTORY: Mother had hypertension. SOCIAL HISTORY: Smokes half a pack per day for the last 22 years ago. Drinks alcohol socially. Denies illicit drugs. She lives with her and 2 children. 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 Denies using any ambulatory assistive device such as a walker or cane. ALLERGIES: NO KNOWN ALLERGIES. HOME MEDICATIONS: Include aspirin 81 mg daily, Plavix 75 mg daily, regular insulin 15 units before breakfast and 10 units before supper, lisinopril 6.25 mg p.o. b.i.d., NPH insulin 20 units subcu prior to supper and 30 units subcu prior to breakfast, Topamax 200 mg p.o. b.i.d., Valtrex 500 mg p.o. b.i.d. REVIEW OF SYSTEMS: CONSTITUTIONAL: Denies any significant weight loss or weight gain. No chills. HEENT: No difficulty with eyes, ears, nose, throat. Does not wear glasses. No hearing aids. No sore throat. RESPIRATORY: Denies shortness of breath, cough, or phlegm. GENITOURINARY: Denies difficulty urinating. PSYCHIATRIC: Denies psychiatric history. INTEGUMENTARY: Denies rash or itching. CARDIOVASCULAR: As per history of present illness. GASTROINTESTINAL: Denies nausea, vomiting, diarrhea, or constipation. Last bowel movement was last night. MUSCULOSKELETAL: Denies muscle or joint pain. NEUROLOGIC: Denies headache or dizziness. ENDOCRINE: Known diabetic. HEMATOLOGIC: Denies bleeding or bruising. OBJECTIVE: VITAL SIGNS: Temperature 98.2, heart rate is 90, blood pressure 113/84, respirations 12, oxygen saturation 98% on room air. Height 5 feet 5 inches. Weight 135 pounds. BMI 22.46. GENERAL: The patient is sitting on the edge of bed, appears anxious and concerned about her employment. LUNGS: Clear to auscultation. Respiratory pattern even and unlabored. HEENT: EOMI. NECK: Supple. CARDIOVASCULAR: Regular rate and rhythm. No murmur. ABDOMEN: Bowel sounds positive. Soft, nontender. EXTREMITIES: No pitting edema. No clubbing, cyanosis, or signs of DVT. NEUROLOGICAL: GCS 15. Nonfocal. LABORATORY DATA: Early this morning around 5 a.m., WBC 6.0, hemoglobin 13.6, hematocrit 41.2, platelets 317. Sodium 127, potassium 3.6, chloride 87, CO2 of 27, BUN 17, creatinine 0.7, glucose greater than 700, albumin 4.1, alkaline phosphatase 162, ALT 23, amylase 33, AST 19, total bilirubin 1.0, GGT 15, total protein 7.2, CK-MB less than 1, myoglobin 53.5. Troponin I less than 0.05. B-type natriuretic peptide 21.9. D-dimer less than 100. Urinalysis was negative except glucose was greater than or equal to 1000 mg/dL. Most recent chemistry today showed sodium 138, potassium 4.2, chloride 101, CO2 of 27, BUN 17, creatinine 0.96, estimated GFR greater than 60, glucose 191, calcium 10.2, phosphorus 3.8, magnesium 1.8. Creatine kinase at 10 a.m. 105, CK-MB 2.1, troponin I 0.005. Then at 12 noon, creatine kinase 123, CK-MB 3.5, troponin I 0.003. Francisco virus PCR obtained today, results are pending. Chest x-ray today showed no acute thoracic radiographic abnormality. Echocardiogram showed estimated ejection fraction of 55% to 60%. A 12-lead EKG showed normal sinus rhythm with a ventricular rate of 87 beats per minute. Most recent hemoglobin A1c was 12.8% on 02/23/2018. TSH on the same date was 1.477. ASSESSMENT AND PLAN: 1. Chest pain, rule out myocardial infarction. Heart catheterization planned for tomorrow by Cardiology. Lovenox to be given once today, then held. Continue daily aspirin and Plavix. She is on Pepcid for peptic ulcer disease prophylaxis, metoprolol succinate, nitroglycerin paste 1 inch topically every 6 hours, morphine sulfate for pain as needed, p.r.n. IV Zofran for nausea. 2. Hypertension. Continue the aforementioned home medication metoprolol. 3. Type 2 diabetes mellitus. Continue sliding scale regular insulin. The patient had initially been on an insulin drip, was thought to potentially be in diabetic ketoacidosis; however, blood sugar much more controlled now. She had been given 6 units of regular insulin IV once. She is on a cardiac diet right now, but will be n.p.o. after midnight for the heart catheterization. We will hold off on long-acting insulin for now. 4. Hyperlipidemia. Continue simvastatin. 5. Prophylaxis. Pepcid. H and P time spent 60 minutes. Billing code [id number]. Dictated by Volodymyr Miramontes NP MD JOSE Farmer/COOKIEL /[id number]
[2019-11-23] VITALS (16 sets, daily range): BP systolic 97–134; BP diastolic 53–99
[2019-11-23] MEDS: SODIUM CHLORIDE 0.9% 1000ML 1,000 ML IV SCH ×5 (00:16→22:13)
[2019-11-23] MEDS: NITROGLYCERIN 2% OINT 1 GM PKT TOP SCH ×4 (00:25→17:50)
[2019-11-23] MEDS: MORPHINE SULFATE 2 MG/ML SYR 1ML IV PRN (01:27)
[2019-11-23 05:03] LABS: BASOPHILS % 0.4 % (0.0-1.0); EOSINOPHILS # (AUTO) 0.1 (0.0-0.4); EOSINOPHILS % 0.7 % (0.0-6.0); HEMATOCRIT 41.5 % (34.2-44.1); HEMOGLOBIN 13.9 g/dL (12.0-16.0); LYMPHOCYTES # (AUTO) 1.6 (1.0-3.2); LYMPHOCYTES % 15.7 % (18.0-39.1); MEAN CORPUSCULAR HEMOGLOBIN 31.6 pg (28-32); MEAN CORPUSCULAR HGB CONC 33.5 g/dL (31-35); MEAN CORPUSCULAR VOLUME 94.3 fL (81-99); MONOCYTES # (AUTO) 0.8 (0.2-0.8); MONOCYTES % 7.7 % (4.4-11.3); NEUTROPHILS # (AUTO) 7.7 (2.1-6.9); PLATELET COUNT 357 x10e3/uL (140-360); RED CELL DISTRIBUTION WIDTH 11.9 % (11.7-14.4)
[2019-11-23 05:18] LABS: INR 0.89; PARTIAL THROMBOPLASTIN TIME 26.6 seconds (23.8-35.5); PROTHROMBIN TIME 12.6 seconds (11.9-14.5)
[2019-11-23 05:26] LABS: ALANINE AMINOTRANSFERASE 16 IU/L (0-55); ALBUMIN 3.5 g/dL (3.5-5.0); ALBUMIN/GLOBULIN RATIO 1.1 (0.8-2.0); ALKALINE PHOSPHATASE 50 IU/L (40-150); ANION GAP 13.3 mmol/L (8-16); BLOOD UREA NITROGEN 22 mg/dL (7-26); BUN/CREATININE RATIO 24 (6-25); CALCIUM 8.8 mg/dL (8.4-10.2); CARBON DIOXIDE 27 mmol/L (22-29); CHLORIDE 101 mmol/L (98-107); CREATININE, SERUM 0.92 mg/dL (0.57-1.11); EST GLOMERULAR FILTRATION RATE > 60 ML/MIN (60-); GLUCOSE 114 mg/dL (74-118); POTASSIUM 4.3 mmol/L (3.5-5.1); SODIUM 137 mmol/L (136-145)
[2019-11-23] MEDS: FAMOTIDINE 20 MG/2 ML VIAL IV SCH ×2 (05:30→17:17)
[2019-11-23 05:31] LABS: CHOL/HDL RATIO 2.5 (3.0-3.6)
[2019-11-23 06:19] LABS: MAGNESIUM 1.7 MG/DL (1.3-2.1); PHOSPHORUS 3.4 MG/DL (2.3-4.7)
[2019-11-23 06:36] LABS: THYROID STIMULATING HORMONE 0.401 uIU/mL (0.350-4.940)
[2019-11-23] MEDS: INSULIN LISPRO 100 UNIT/1 ML 3ML VIAL SQ SCH ×4 (07:30→20:59)
--- NOTE | 2019-11-23 07:46 | NUR ---
Patient's glucose, accucheck, 284 made Truong Joy aware since patient had a hypoglycemic episode on or about 2 am and was given orange juice the 284 is a reflection of the orange juice given. Patient is NPO for heart catheter this morning.
[2019-11-23 07:54] LABS: ANION GAP 13.9 mmol/L (8-16); BLOOD UREA NITROGEN 21 mg/dL (7-26); BUN/CREATININE RATIO 22 (6-25); CALCIUM 8.7 mg/dL (8.4-10.2); CARBON DIOXIDE 26 mmol/L (22-29); CHLORIDE 99 mmol/L (98-107); CREATININE, SERUM 0.96 mg/dL (0.57-1.11); EST GLOMERULAR FILTRATION RATE > 60 ML/MIN (60-); GLUCOSE 341 mg/dL (74-118); POTASSIUM 4.9 mmol/L (3.5-5.1); SODIUM 134 mmol/L (136-145)
[2019-11-23] MEDS: VALACYCLOVIR HCL 500 MG TAB PO SCH ×2 (09:00→17:17)
[2019-11-23] MEDS: CLOPIDOGREL BISULFATE 75 MG TAB PO SCH (09:00)
[2019-11-23] MEDS: TOPIRAMATE 100 MG TAB PO SCH ×2 (09:00→17:17)
[2019-11-23] MEDS ORDERED: CLOPIDOGREL BISULFATE 75 MG TAB PO SCH (09:00)
[2019-11-23] MEDS: METOPROLOL SUCCINATE 25 MG TAB XL PO SCH (09:00)
[2019-11-23] MEDS ORDERED: ASPIRIN 81 MG CHEW TAB PO SCH ×2 (09:00)
[2019-11-23 10:39] LABS: ANION GAP 16.1 mmol/L (8-16); BLOOD UREA NITROGEN 20 mg/dL (7-26); BUN/CREATININE RATIO 21 (6-25); CALCIUM 8.6 mg/dL (8.4-10.2); CARBON DIOXIDE 23 mmol/L (22-29); CHLORIDE 100 mmol/L (98-107); CREATININE, SERUM 0.97 mg/dL (0.57-1.11); EST GLOMERULAR FILTRATION RATE > 60 ML/MIN (60-); POTASSIUM 5.1 mmol/L (3.5-5.1); SODIUM 134 mmol/L (136-145)
[2019-11-23] MEDS ORDERED: VERAPAMIL HCL 2.5 MG/ML 2 ML VIAL ONE (10:46)
[2019-11-23] MEDS ORDERED: HEPARIN SOD (PORCINE) 1000 UNIT/ML 30ML ONE (10:46)
[2019-11-23] MEDS ORDERED: MIDAZOLAM HCL 2 MG/2 ML VIAL ONE (10:46)
[2019-11-23] MEDS ORDERED: FENTANYL CITRATE/PF 100MCG/2 ML INJ ONE (10:47)
[2019-11-23] MEDS ORDERED: NITROGLYCERIN/D5W 200 MCG/ML 250 ML ONE (10:47)
[2019-11-23] MEDS ORDERED: SODIUM CHLORIDE 0.9% 1000ML 1,000 ML ONE (10:47)
[2019-11-23] MEDS ORDERED: LIDOCAINE HCL 2% LOCAL 20 ML VIAL ONE (10:47)
[2019-11-23] MEDS ORDERED: IOPAMIDOL 370 MG/ML 200 ML INFUS..BTL INJ ONE (10:47)
[2019-11-23] MEDS ORDERED: HEPARIN SOD/SOD CHLORIDE 2,000 ML ONE (10:47)
[2019-11-23 10:48] LABS: GLUCOSE 439 mg/dL (74-118)
--- NOTE | 2019-11-23 11:13 | NUR ---
Made PATIENT RELATIONS SPECIALIST Volodymyr Miramontes, aware patient glucose accu-check 401, and glucose serum 439, informed PATIENT RELATIONS SPECIALIST that patient was covered with lispro insulin 12 units per sliding sacale and she had been taken to the cath-lab for scheduled heart cath procedure.
[2019-11-23] MEDS ORDERED: ASPIRIN 325 MG TAB ONE (11:43)
[2019-11-23] MEDS ORDERED: CLOPIDOGREL BISULFATE 75 MG TAB ONE (11:43)
--- NOTE | 2019-11-23 11:53 | NUR ---
1153ARECIEVING NOTE CCL Received pt to room #9,bedside report received from NIRMALA Suarez. Alert oriented and appropriate, PERRLA, respirations even and unlabored to room air. Pulses x4 extremities equal and strong. Pedal pulses PT/DP X4 and marked. Cap fill brisk < 3 sec. Rt TR band time removal start time at 1230pm.No gross issues pain pallor pressure or dysrhythmia.(EKG Sinus Tach which is baseline)Pt had LAD fix Dr Santos. Skin warm and dry integrity appears D/I. IV 20g to left arm Ns infusing.Rt saline#[address] both presents healthy w/o s/s of infiltration or complaint. Abdomen soft and supple. pt offered toileting, denies need to urinate or defecate. No personal affects with patient. No Family, pt in hospital Rm #[id number]. BS take 293 tray ADA ordered for deliver maria elena. Currently w/o complaint of pain or need. ds/rn
--- NOTE | 2019-11-23 12:30 | NUR ---
`1230 RADIAL Compression removal: Initial Cuff volume -15cc 1230p -2cc Removed No hematoma/bleeding noted with normal neurovascular function. 1245p -3cc Removed No hematoma/ bleeding noted with normal neurovascular function. 1300p -5cc Removed No hematoma/bleeding noted with normal neurovascular function. 1315p -5cc Removed No hematoma/ bleeding noted with normal neurovascular function. Air removal completed. manual pressure applied 5min extra over site to ensure stasis with slight ooze after TR band cuff off. Stasis achieved sterile 2x2,Tegaderm, Coban dressing No hematoma, bleeding noted with normal neurovascular function. Wrist splint in place. Pt instructed on POC. Ds/Rn
--- NOTE | 2019-11-23 12:34 | NUR ---
1234 BS 293 fasting since arrival to cath procedure tray ordered and sugar no covered but will report to receiving nurse Starla on arrival back to floor care. Did eat 100% diabetic tray on arrival.to [facility] recovery area.ds/rn
--- NOTE | 2019-11-23 13:30 | NUR ---
1330p Verbal report given to Deepak Cha to received pt on floor care [id number]. Procedure completed by Dr Santos LAD x1, Rt Tr band approach Site stable with dressing and arm reminder board in place. No oozing or hematoma.Noted Normal neuro vascular function.Pt remains ST stable VS. Trband teaching tool done and copies of tool with stent card given to pt. 1345p Transfer completed back to [facility] [id number] per bed and tele from [facility], Report handoff completed with face to face bedside RN Starla SILVESTRE. left pt in room with RN No active bleeding with normal neurovascular function to rt TR band site,ok to dc arm support reminder with shower in am. bed in low locked position call light at bedside Monitor remain in ST report to tele room .No active CP or SOB, Lad fix x1 stent reported completed by Dr Santos pt received 50fentynal/1 versed back to baseline orientation. Sats 100%Ra. ds/rn
--- NOTE | 2019-11-23 16:04 | Progress Note ---
DATE: 11/23/2019 PRIMARY CARE PHYSICIAN: The patient states she does not use a primary care physician. She goes on an episodic basis. CONSULTING PHYSICIAN: Dr. Mingo Roth with Cardiology. SUBJECTIVE: The patient is sitting on the edge of the bed. She is quite anxious. She is anxious because she wants to be discharged as soon as possible. The patient underwent a left heart catheterization this morning with one stent to the LAD. OBJECTIVE: VITAL SIGNS: Temperature 98.1, heart rate 102, blood pressure 114/92, respirations 20, and oxygen saturation 100%. GENERAL: Sitting on the edge of the bed, anxious. LUNGS: Clear to auscultation. Respiratory pattern even and unlabored. HEENT: EOMI. NECK: Supple. CARDIOVASCULAR: Regular rate and rhythm. No murmur. ABDOMEN: Bowel sounds positive. Soft and nontender. EXTREMITIES: Without pitting edema, clubbing, cyanosis, or signs of DVT. NEUROLOGICAL: GCS 15. Nonfocal. LABORATORY DATA: WBC 10.24, hemoglobin 13.9, hematocrit 41.5, and platelets 357. PT 12.6, INR 0.89, and PTT 26.6. Sodium 134, potassium 5.1, chloride 100, CO2 23, anion gap 16.1, BUN 20, creatinine 0.97, estimated GFR greater than 60, glucose 439, and calcium 8.6. Fingerstick blood glucose 293. Coronavirus collected 11/21, not detected. ASSESSMENT AND PLAN: 1. Chest pain, rule out myocardial infarction, status post left heart catheterization via radial approach with one stent to LAD. Continue DAPT with aspirin and Plavix, nitroglycerin paste 1 inch topically every 6 hours p.r.n., and morphine sulfate p.r.n. for pain. Follow up per Cardiology. Currently, no complaints of chest pain. 2. Controlled hypertension. Continue metoprolol succinate 12.5 mg daily. 3. Uncontrolled type 2 diabetes mellitus. Blood glucose above 400 today, not treated aggressively, as the patient was n.p.o. for procedure this morning. I have resumed her home medications as possible. Regular insulin 15 units before breakfast and 10 units before supper, NPH insulin 30 units before breakfast and 20 units before supper. Also, continue low-dose sliding scale insulin. The patient states she buys her insulin through [employer] and gives based on how she feels. She does not really check her blood sugar at home. We will ask case management to see the patient to determine if there are any programs of assistance for her to help her afford medication and/or physician visits on an outpatient basis. 4. Hyperlipidemia. Continue simvastatin. 5. Stress. The patient states she is stressed out from being in the hospital as well as concerns with employment. Towards the end of her visit, she became argumentative because she wants to discharge as soon as possible. I explained to the patient that we need to get her blood sugar under better control at least before she discharges and also need clearance from Cardiology before discharging. 6. Prophylaxis. Pepcid. Time spent 35 minutes. Billing code [id number]. Dictated by Volodymyr Miramontes NP MD MACK FarmerP/COOKIEL /[id number]
[2019-11-23] MEDS ORDERED: INSULIN REGULAR, HUMAN 100 UNIT/1 ML 3ML VIAL SQ SCH (16:30)
[2019-11-23] MEDS ORDERED: NPH, HUMAN INSULIN ISOPHANE 100 UNIT/1 ML 3ML VIAL SQ SCH (16:30)
--- NOTE | 2019-11-23 22:36 | Operative Report ---
DATE OF PROCEDURE: 11/23/2019 SURGEON: Mingo Roth MD PROCEDURE: Cardiac catheterization. PROCEDURE INDICATION: Unstable angina and the patient with history of coronary artery disease and prior coronary stents. CUSTOMER ACCOUNT REPRESENTATIVE: Mingo Roth MD, Interventional Cardiology. PROCEDURES PERFORMED: 1. Left heart catheterization. 2. Selective coronary angiography. 3. Ultrasound-guided access. 4. LAD drug-eluting stent PCI using Resolute Fults 2.5 x 12 drug-eluting stent. 5. TR band hemostasis. MODERATE SEDATION: 1 mg Versed and 25 mcg fentanyl. SEDATION TIME: 24 minutes. PROCEDURE SUMMARY: After consent was obtained, the patient was prepped and draped in a sterile fashion. The right radial site was locally infiltrated with 2% lidocaine and with ultrasound guidance, access was obtained and a 5-Comoran outer diameter slender sheath was advanced. The PIG catheter was used for engagement of left main, right coronary artery, and to cross the aortic valve. Angiography was performed in multiple views. It was decided to proceed with intervention to the LAD, for which an XB LAD, no side holes 6-Comoran guide catheter was used. A Runthrough wire was used to cross the area of stenosis of position into the distal LAD and primary stenting with 2.5 x 12 Resolute Demetrius to 16 atmospheres was performed across the target lesion. Heparin was used to maintain an ACT over 250. Aspirin and Plavix load were administered preprocedure. Preprocedure stenosis 80%. Postprocedure stenosis 0%. JOSHUA-3 flow pre and post procedure. No flow-limiting dissections, no perforations, postprocedure. FINDINGS: 1. LV pressure was 102/2 with end-diastolic pressure of 3. 2. Aortic pressure is 94/65 with a mean of 72. 3. No left ventriculogram was performed. 4. Left main is large in caliber with luminal irregularities gives an LAD and a circumflex both large in caliber. 5. The LAD proximally has luminal irregularity. After giving a distal ct technician and diagonal, it has an 80% stenosis. This was a target lesion, treated as described above. Rest of LAD has luminal irregularities. It gives off multiple septal perforators and small caliber diagonals. It wraps around the apex in the apical inferior segments of LV myocardium. 6. The circumflex is large in caliber and gives a high take of 1st obtuse marginal, small caliber and after an area of 30% to 40% stenosis, gives a 2nd small to medium caliber obtuse marginal. The circumflex, thereafter has an area of stent that is patent after which two left posterolateral branches arise and the left PDA. This is a dominant circumflex. 7. The right coronary artery is nondominant. It has 50% proximal stenosis and gives 2 terminal RV branches. CONCLUSION: LAD drug-eluting stent PCI for unstable angina. Recommend aspirin, Plavix, risk factor optimization, wean TR band. IV fluid. MD ROXANA Machado/LORI /[id number]
--- NOTE | 2019-11-23 23:26 | Progress Note ---
DATE: 11/23/2019 Cardiology Progress Note SUBJECTIVE: No chest pain or shortness of breath. OBJECTIVE: VITAL SIGNS: Temperature 98.1, heart rate 102, blood pressure 114/92, respiratory rate 20, O2 saturation 100%. GENERAL: No acute distress, alert. NECK: No JVD. CHEST: Clear to auscultation. CARDIOVASCULAR: Regular rate and rhythm. Normal S1, S2. ABDOMEN: Soft. Bowel sounds positive. EXTREMITIES: No edema. CARDIOVASCULAR MEDICATIONS: Reviewed. Aspirin 81 mg daily, clopidogrel 75 mg daily, metoprolol succinate 12.5 mg daily, simvastatin 40 mg at bedtime discontinued and initiating atorvastatin 80 mg at bedtime and nitroglycerin p.r.n. LABORATORY DATA: Studies reviewed. Potassium is 5.1, creatinine is 0.97, glucose 439. White blood cells 10.2, hemoglobin 13.9, and platelets 357. ASSESSMENT AND PLAN: 1. A 39-year-old woman with coronary artery disease, presents with unstable angina and now status post LAD drug-eluting stent PCI. 2. Diabetes mellitus, uncontrolled. 3. Dyslipidemia hypertension recommend up titrating statin potency to atorvastatin 80 mg at bedtime. 4. Dual antiplatelet therapy with aspirin and Plavix following a new drug-eluting stent PCI to LAD today. 5. Preserved left ventricular systolic function noted on echocardiogram. 6. Optimize diabetes management. MD ROXANA Machado/LORI /[id number]
[2019-11-24 00:09] VITALS: BP 121/77
[2019-11-24] MEDS: NITROGLYCERIN 2% OINT 1 GM PKT TOP SCH ×3 (00:09→12:50)
[2019-11-24 04:07] VITALS: BP 112/83
[2019-11-24 05:19] LABS: BASOPHILS % 0.5 % (0.0-1.0); EOSINOPHILS # (AUTO) 0.3 (0.0-0.4); EOSINOPHILS % 3.6 % (0.0-6.0); HEMATOCRIT 37.5 % (34.2-44.1); HEMOGLOBIN 12.5 g/dL (12.0-16.0); LYMPHOCYTES # (AUTO) 2.5 (1.0-3.2); LYMPHOCYTES % 29.5 % (18.0-39.1); MEAN CORPUSCULAR HEMOGLOBIN 31.1 pg (28-32); MEAN CORPUSCULAR HGB CONC 33.3 g/dL (31-35); MEAN CORPUSCULAR VOLUME 93.3 fL (81-99); MONOCYTES # (AUTO) 0.8 (0.2-0.8); MONOCYTES % 9.9 % (4.4-11.3); NEUTROPHILS # (AUTO) 4.7 (2.1-6.9); NEUTROPHILS % 56.4 % (38.7-80.0); PLATELET COUNT 339 x10e3/uL (140-360); RED BLOOD COUNT 4.02 x10e6/uL (3.6-5.1); RED CELL DISTRIBUTION WIDTH 11.9 % (11.7-14.4)
[2019-11-24 05:44] LABS: ANION GAP 10.5 mmol/L (8-16); BLOOD UREA NITROGEN 16 mg/dL (7-26); BUN/CREATININE RATIO 24 (6-25); CALCIUM 9.1 mg/dL (8.4-10.2); CARBON DIOXIDE 27 mmol/L (22-29); CHLORIDE 107 mmol/L (98-107); CREATININE, SERUM 0.68 mg/dL (0.57-1.11); EST GLOMERULAR FILTRATION RATE > 60 ML/MIN (60-); GLUCOSE 63 mg/dL (74-118); MAGNESIUM 1.9 MG/DL (1.3-2.1); POTASSIUM 3.5 mmol/L (3.5-5.1); SODIUM 141 mmol/L (136-145)
[2019-11-24] MEDS: FAMOTIDINE 20 MG/2 ML VIAL IV SCH (05:48)
[2019-11-24] MEDS ORDERED: INSULIN REGULAR, HUMAN 100 UNIT/1 ML 3ML VIAL SQ SCH ×3 (07:30→16:30)
[2019-11-24] MEDS ORDERED: NPH, HUMAN INSULIN ISOPHANE 100 UNIT/1 ML 3ML VIAL SQ SCH (07:30)
[2019-11-24] MEDS: INSULIN LISPRO 100 UNIT/1 ML 3ML VIAL SQ SCH ×2 (07:30→12:00)
[2019-11-24] MEDS: SODIUM CHLORIDE 0.9% 1000ML 1,000 ML IV SCH (08:15)
[2019-11-24 09:00] VITALS: BP 112/83
[2019-11-24] MEDS ORDERED: ASPIRIN 81 MG CHEW TAB PO SCH (09:00)
[2019-11-24] MEDS: TOPIRAMATE 100 MG TAB PO SCH (09:00)
[2019-11-24] MEDS ORDERED: ATORVASTATIN 40 MG TAB PO SCH (09:00)
[2019-11-24] MEDS ORDERED: ATORVASTATIN 20 MG TAB PO SCH (09:00)
[2019-11-24] MEDS: CLOPIDOGREL BISULFATE 75 MG TAB PO SCH (09:15)
[2019-11-24] MEDS: VALACYCLOVIR HCL 500 MG TAB PO SCH (09:16)
[2019-11-24] MEDS: METOPROLOL SUCCINATE 25 MG TAB XL PO SCH (09:18)
[2019-11-24 09:30] VITALS: BP 118/90
--- NOTE | 2019-11-24 10:57 | NUR ---
SPOKE WIHT PT PER REQUEST ABOUT DIFFERENT RESOURCES IN COMMUNITY FOR PRESCRIPTION ASSISTANCE. ALSO GAVE GOOD RX CARD AND WAS ABLE TO EDUCATE HER ON DIFFERENT PROGRAMS IN COMMUNITY. SHE STATES SHE AND HER MOTHER WILL OFTEN GO TO [place] TO GET THE MEDICATIONS BECAUSE THE COST IS SO MUCH CHEAPER BUT WITH LIMITATIONS ON TRAVEL UNABLE AT THIS POINT.
[2019-11-24 12:45] VITALS: BP 125/81
[2019-11-24] MEDS ORDERED: METFORMIN HCL500 MG PO (14:14)
[2019-11-24] MEDS ORDERED: TOPROL XL25 MG PO (14:14)
[2019-11-24] MEDS ORDERED: Atorvastatin PO (14:14)
[2019-11-24] MEDS ORDERED: DEXTROSE 50% SYRINGE 50 ML IV PRN (14:15)
[2019-11-24] MEDS ORDERED: HUMULIN R100 UNIT/2 SQ (14:17)
[2019-11-24] MEDS ORDERED: VALTREX500 MG PO (14:21)
[2019-11-24] MEDS ORDERED: PLAVIX75 MG PO (14:21)
[2019-11-24] MEDS ORDERED: ASPIR 8181 MG PO (14:21)
[2019-11-24] MEDS ORDERED: TOPAMAX25 MG PO (14:21)
--- NOTE | 2019-11-24 15:45 | Discharge Summary ---
PRIMARY CARE PHYSICIAN: The patient states she does not use a primary care physician. She goes on an episodic basis. CONSULTING PHYSICIAN: Dr. Mingo Roth, with Cardiology. HISTORY OF PRESENT ILLNESS: Ms. Alonzo is a 39-year-old female with underlying history of type 2 diabetes mellitus, hypertension, dyslipidemia, coronary artery disease with remote previous coronary artery stent x1 in [place], [place], presenting with a complaint of 1 week onset of chest pressure at its worst 7/10 on a scale of 0-10 in the center of the chest, which radiated down the left arm and up to the neck. The patient stated that the chest pressure was worsening in frequency, intensity, and duration lasting 5-10 minutes at a time. Thus, she sought evaluation in the emergency department. ADMITTING DIAGNOSES: Include: 1. Chest pain, rule out myocardial infarction. 2. Hypertension. 3. Type 2 diabetes mellitus. 4. Hyperlipidemia. DISCHARGE DIAGNOSES: 1. Coronary artery disease, presented with unstable angina, now status post LAD drug-eluting stent, PCI via radial approach on 11/23/2019, by Dr. Santos. 2. Controlled hypertension. 3. Uncontrolled type 2 diabetes mellitus with hyperglycemia. 4. Hyperlipidemia. 5. Excess stress with anxiety. On admission, creatine kinase 105, CK-MB 2.01, troponin I 0.005. Subsequent cardiac enzymes, creatine kinase 123, CK-MB 3.5, troponin I 0.003. At 1800 on 11/21, creatine kinase 182, CK-MB 6.3, troponin I 0.008. Serum glucose initially 189. Hemoglobin A1c on 11/22 was 12.9%. Coronavirus by PCR on 11/21 was negative, not detected. Chest x-ray on 11/21, showed no acute thoracic radiographic abnormality. DAPT with aspirin and Plavix was continued throughout her stay and she was on nitroglycerin paste 1 inch topically every 6 hours p.r.n. and morphine sulfate p.r.n. for pain. The patient states she is feeling much better since she had a drug-eluting stent placed. Metoprolol succinate was used for hypertension and lisinopril was stopped. She does not have a PCP and her diabetes was very uncontrolled with fingerstick blood glucose levels in the upper 200s on 11/22, serum glucose ranged that day from 114 to 444. This morning, serum glucose 63, and fingerstick blood glucose 293. The patient usually buys her NPH insulin and short-acting insulin from the [employer] and takes it based on how she feels. She does not check her blood sugar at home. Danisha, her Case Management saw the patient this morning and discussed options relating to obtaining her medication any programs of assistance to help her afford medications and/or physician visits on an outpatient basis. I had a lengthy discussion with the patient regarding her next course of action. I suggested that the patient follows up with Dr. Cruz in 1 to 3 weeks as he has approximately 30 years of experience managing diabetes even in patients who do not have insurance. The patient seems agreeable to this. I explained to the patient that insulin increases risk of cardiovascular problems and that she should aim to switch from insulin to more oral diabetic medications. The patient states the last time she used only oral medications, she was in DKA within a few days. The patient is still encouraged to follow up with Dr. Cruz as described. Follow up with Dr. Santos as directed and be sure to establish a PCP regardless of whether it is Dr. Cruz or someone else. The patient seems open to seeing an manager transition as well. Simvastatin given for hyperlipidemia. She seems relieved that she has luckily met her deductible with this procedure of stent placement and is considering making changes with her current employment. Today, telemetry revealed sinus rhythm with heart rate 88, inverted T-wave. Sodium 141, potassium 3.5, chloride 107, CO2 27, BUN 16, creatinine 0.68, glucose 63. WBC 8.31, hemoglobin 12.5, hematocrit 37.5, platelets 339. No strenuous activity. No heavy lifting. ADA diet. Some home medications renewed with fresh prescriptions provided and several new medications as well, atorvastatin 80 mg p.o. daily, metformin 1000 mg p.o. b.i.d., Toprol-XL 12.5 mg p.o. daily, regular insulin, medium dose sliding scale. Plavix 75 mg p.o. daily. Aspirin 81 mg p.o. daily. Valtrex 500 mg p.o. b.i.d., Topamax 200 mg p.o. b.i.d., and given her a month's supply on all of her medications and encourage close followup. Dictated by Volodymyr Miramontes, SOFTWARE SUPPORT ENGINEER MD JOSE Farmer/LORI /[id number]
--- NOTE | 2019-11-24 16:38 | NUR ---
Patient discharged home provided discharge instructions and client verbalized understanding. Escorted her in wheel chair to front of hospital.
[2019-11-24] MEDS ORDERED: METFORMIN HCL 500 MG TAB PO SCH (17:00)
--- NOTE | 2019-11-24 19:05 | Progress Note ---
DATE: Cardiology Progress Note SUBJECTIVE: Denies chest pain or shortness of breath. OBJECTIVE: VITAL SIGNS: Temperature 97.9, heart rate 88, blood pressure 112/83, respiratory rate 14, and O2 saturation 98%. BMI 22.4. GENERAL: No acute distress. Alert. NECK: No JVD. CHEST: Clear to auscultation. CARDIOVASCULAR: Regular rate and rhythm. Normal S1 and S2. No S3. No S4. No murmurs or rubs. ABDOMEN: Soft. Bowel sounds positive. EXTREMITIES: No edema. CARDIOVASCULAR MEDICATIONS: Have been reviewed, on aspirin 81 mg daily, nitroglycerin p.r.n., clopidogrel 75 mg daily, atorvastatin 80 mg at bedtime, and metoprolol succinate 12.5 mg daily. STUDIES: Reviewed. Potassium 3.5, creatinine 0.68, and glucose 63, repeat in the 300s. Pending additional blood glucose followup later this afternoon. White blood cells 8.3, hemoglobin 12.5, and platelets 339. ASSESSMENT AND PLAN: A 39-year-old woman with uncontrolled diabetes mellitus, hypertension, dyslipidemia, presents with unstable angina, has history of remote circumflex stents, which were patent, however, with new severe stenosis of the LAD, now status post drug-eluting stent PCI. RECOMMEND: 1. Continue dual antiplatelet therapy and high potency statin. 2. Continue beta-cody. 3. Preserved left ventricular systolic function on echo. 4. Diabetes optimization strongly encouraged. Okay to discharge from a cardiovascular standpoint once diabetes management optimized. Mingo Roth MD AFDonna/MODL /[id number]
== END 2019-11-24 16:25 | disposition home or self-care (01) | DRG 247 ==
LOC: FSED 04:22 → ERHOLD 05:26 → IMCU 09:04
PROVIDERS: ADMIT Internal Medicine; ATTEND Internal Medicine
PROC: 4A023N7 Measurement of Cardiac Sampling and Pressure, Left Heart, Percutaneous Approach (ICD-10-PCS; principal; 2019-11-23)
PROC: 027034Z Dilation of Coronary Artery, One Artery with Drug-eluting Intraluminal Device, Percutaneous Approach (ICD-10-PCS; 2019-11-23)
PROC: B2111ZZ Fluoroscopy of Multiple Coronary Arteries using Low Osmolar Contrast (ICD-10-PCS; 2019-11-23)
PROC: B2151ZZ Fluoroscopy of Left Heart using Low Osmolar Contrast (ICD-10-PCS; 2019-11-23)
DX: I25.110 Atherosclerotic heart disease of native coronary artery with unstable angina pectoris (principal); Q00-Q99 Congenital malformations, deformations and chromosomal abnormalities; I10 Essential (primary) hypertension; Z91.14 Patient's other noncompliance with medication regimen; E78.5 Hyperlipidemia, unspecified; Z95.5 Presence of coronary angioplasty implant and graft; F17.210 Nicotine dependence, cigarettes, uncomplicated; Z79.4 Long term (current) use of insulin; E11.65 Type 2 diabetes mellitus with hyperglycemia
CPT/HCPCS: 36415; 71045; 76937; 80048; 80053; 80061; 80076; 81003; 82550; 82553; 82947; 82948; 83036; 83735; 83880; 84100; 84443; 84484; 85025; 85379; 85610; 85730; 87635; 92928; 93005; 93306; 93458; 96372; 99152; 99153; 99284; C1769; C1874; C1887; C1894; J1644; J1650; J1817; J2001; J2250; J2270; J2405; J3010; J7030; J7050; Q9967

== ENCOUNTER 2020-05-13 16:15 | Observation (INO) | payer BC, OTHER ==
[~2020-05-13] VITALS: Ht 165.1 cm; Wt 119.7 kg
[~2020-05-13 16:15] MED LIST changes: +Atorvastatin PO; +METFORMIN HCL500 MG PO; +TOPROL XL25 MG PO
[2020-05-13] MEDS ORDERED: NITROGLYCERIN 2% OINT 1 GM PKT TOP ONE (16:45)
[2020-05-13] MEDS ORDERED: ASPIRIN 81 MG CHEW TAB PO ONE (16:45)
[2020-05-13] MEDS ORDERED: ACETAMINOPHEN 325 MG TAB PO ONE (16:45)
[2020-05-13] MEDS ORDERED: FAMOTIDINE 20 MG/2 ML VIAL IV NR (16:45)
--- NOTE | 2020-05-13 16:48 | Emergency Department Note ---
History of Present Illnes History of Present Illness History of Present Illness This is a 39 year old female hx DM, CAD, two cardiac stents c/o left sided abd pain radiating to the chest on and off for 1 week. the pain is similar to her heart attacks in the past. Her BM has been normal, no n//v/d, no f/c no SOB. Arrival Mode: Car Onset (how long ago): week(s) Radiation: Reports proximal Severity: moderate Onset quality: gradual Duration (how long): day(s) Timing of current episode: intermittent Progression: waxing and waning Chronicity: recurrent Relieving factors: none Exacerbating factors: none Associated symptoms: Reports denies other symptoms Treatments prior to arrival: none Past Medical/Family History Physician Review I have reviewed the patient's past medical and family history. Any updates have been documented here. Past Medical History Past Medical History: Hypertension, Diabetes, [place], Hyperlipedemia Other Medical History: genital herpes Past Surgical History: Hysterectomy, Tubal Ligation, Lumpectomy Other Surgery: stents Other Last Tetanus: UNKNOWN Review of Systems Review of Systems Constitutional: Reports no symptoms EENTM: Reports no symptoms Cardiovascular: Reports as per HPI Respiratory: Reports no symptoms Gastrointestinal: Reports as per HPI Genitourinary: Reports no symptoms Musculoskeletal: Reports no symptoms Integumentary: Reports no symptoms Neurological: Reports no symptoms Psychological: Reports no symptoms Endocrine: Reports no symptoms Hematological/Lymphatic: Reports no symptoms Physical Exam Related Data Allergies: Coded Allergies: No Known Allergies (Unverified , 02/22/18) Vital signs reviewed: Yes Physical Exam CONSTITUTIONAL Constitutional: Present well-developed, Present well-nourished HENT HENT: Present normocephalic, Present atraumatic, Present oropharynx clear/moist, Present nose normal HENT L/R: Present left ext ear normal, Present right ext ear normal EYES Eyes: Reports PERRL, Reports conjunctivae normal NECK Neck: Present ROM normal PULMONARY Pulmonary: Present effort normal, Present breath sounds normal CARDIOVASCULAR Cardiovascular: Present regular rhythm, Present heart sounds normal, Present capillary refill normal, Present normal rate GASTROINTESTINAL Abdominal: Present soft, Present nontender, Present bowel sounds normal GENITOURINARY Genitourinary: Present exam deferred SKIN Skin: Present warm, Present dry MUSCULOSKELETAL Musculoskeletal: Present ROM normal NEUROLOGICAL Neurological: Present alert, Present oriented x 3, Present no gross motor or sensory deficits PSYCHOLOGICAL Psychological: Present mood/affect normal, Present judgement normal Results Laboratory Lab results reviewed: Yes Laboratory comments Cardiac enzymes normal Imaging Imaging results reviewed: Yes Impressions increase in stool Procedures 12 Lead ECG Interpretation ECG Interpretation : ECG: ECG 1 Predatory Animal Trapper: Interpreted by ED physician Date: May 13, 2020 Time: 17:00 Prior ECG tracings: reviewed Rhythm: sinus rhythm Rate: normal BPM: 91 QRS axis: normal T wave inversion: V4, V5, V6 Other findings: LVH, STEVE Clinical Impression: myocardial ischemia Critical Care Time Total Critical Care Time (min): 40 Critcal care necessary due to: other (Critical care for unstable angina, treat with Lovenox, nitro, Morphine IV, ASA orally. ) Critcal care time spent by me: develop tx plan w patient/surrogate, discussion w consultants, discussion w primary provider, examination of patient, obtaining hx from patient/surrogate, order/perform tx or interventions, order/review lab oratory studies, order/review radiographic studies, re-evaluation of patient condition, review of old charts Assessment & Plan Medical Decision Making MDM ACS, unstable angina, constipation, diverticulitis. Reassessment Reassessment time: 17:43 Reassessment still hurting LLQ, will add CT scan Assessment & Plan Final Impression: (1) Unstable angina (2) Abdominal pain (3) Cystitis (4) Abdominal pain (5) Hyperglycemia Depart Disposition: ADMITTED Home Meds Active Scripts Valacyclovir Hcl (VALTREX) 500 Mg Tab, 500 MG PO BID for 30 Days, #60 TAB 0 Refills Prov:MARIANA CROWE NP 11/24/19 Aspirin (ASPIR 81) 81 Mg Tablet.dr, 81 MG PO DAILY for 30 Days, #30 TAB 0 Refills Prov:MARIANA CROWE NP 11/24/19 Clopidogrel Bisulfate* (PLAVIX) 75 Mg Tablet, 75 MG PO DAILY for 30 Days, #30 TAB 0 Refills Prov:MARIANA CROWE NP 11/24/19 Metoprolol Succinate (TOPROL XL) 25 Mg Tab.er.24h, 12.5 MG PO DAILY for 30 Days, #30 TAB.SR 0 Refills Prov:MARIANA CROWE NP 11/24/19 [Atorvastatin] 40 MG TAB No Conflict Check, 80 MG PO DAILY for 30 Days, #30 TAB 0 Refills Prov:MARIANA CROWE NP 11/24/19 Reported Medications Insulin Aspart (NOVOLOG) 100 Unit/1 Ml Cartridge, 8 UNITS SC TIDWM, UNITS 05/13/20 Insulin Glargine,Hum.rec.anlog (Basaglar Kwikpen U-100) 100 Unit/1 Ml Insuln.pen, 35 UNITS HS 05/13/20 Discontinued Scripts Topiramate (TOPAMAX) 25 Mg Tablet, 200 MG PO BID for 30 Days, #60 TAB 0 Refills Prov:MARIANA CROWE NP 11/24/19 Insulin Regular, Human (HUMULIN R) 100 Unit/1 Ml Vial, 0 UNIT SQ ACHS for 30 Days, #2 VIAL 0 Refills Prov:MARIANA CROWE NP 11/24/19 Metformin Hcl (METFORMIN HCL) 500 Mg Tablet, 1000 MG PO BIDWM for 60 Days, #120 TAB 0 Refills Prov:SEBASTIENMARIANA NP 11/24/19 Medications in the ED Lovenox, aspirin, morphine, nitro paste. Physician Attestation Provider Attestation given hx of CAD with stents, patient has unstable angina in abundance of preca ution and pt should be treated as such. The case has been d/c with Dr Lam and Dr Santos. BRO VELASQUEZ MD May 13, 2020 16:48
[2020-05-13] MEDS ORDERED: NITROGLYCERIN 2% OINT 1 GM PKT ONE (17:04)
[2020-05-13] MEDS ORDERED: ONDANSETRON HCL INJ 2MG/ML 2ML 2 MG/ML VIAL ONE (17:04)
[2020-05-13] MEDS ORDERED: FAMOTIDINE 20 MG/2 ML VIAL IV ONE (17:05)
[2020-05-13] MEDS ORDERED: ACETAMINOPHEN 325 MG TAB ONE (17:05)
[2020-05-13] MEDS: ONDANSETRON HCL INJ 2MG/ML 2ML 2 MG/ML VIAL IV PRN (17:10)
--- NOTE | 2020-05-13 17:35 | Diagnostic Imaging Report ---
EXAMINATION: ABDOMEN COMPLETE - HOPD INDICATION: Chest and abdominal pain. COMPARISON: Chest x-ray on 11/22/2019. FINDINGS: CHEST: TUBES and LINES: None. LUNGS: Lungs are well inflated. Lungs are clear. There is no evidence of pneumonia or pulmonary edema. PLEURA: No pleural effusion or pneumothorax. HEART AND MEDIASTINUM: The cardiomediastinal silhouette is unremarkable. Coronary stents are noted. BONES AND SOFT TISSUES: No acute osseous lesion. Soft tissues are unremarkable. ABDOMEN: Nonobstructive bowel gas pattern. Moderate colonic stool burden. No evidence of pneumoperitoneum. No abnormal calcifications. The bones are normal for age. Soft tissues are normal. IMPRESSION: 1. Nonobstructive bowel gas pattern with moderate colonic stool burden. 2. No acute thoracic radiographic abnormality. Signed by: Gera Garner MD on 05/13/2020 5:32 PM
[2020-05-13] MEDS ORDERED: SODIUM CHLORIDE 0.9% 1000ML 1,000 ML IV STA (17:40)
[2020-05-13] MEDS ORDERED: MORPHINE SULFATE INJ 4 MG/ML INJ 1ML IV STA (17:40)
[2020-05-13] MEDS ORDERED: ONDANSETRON HCL INJ 2MG/ML 2ML 2 MG/ML VIAL IV PRN ×2 (18:00)
[2020-05-13] MEDS ORDERED: MORPHINE SULFATE INJ 4 MG/ML INJ 1ML IV PRN (18:00)
[2020-05-13] MEDS ORDERED: DIPHENHYDRAMINE HCL INJ 50 MG/ML VIAL IV PRN (18:00)
[2020-05-13] MEDS ORDERED: ENOXAPARIN SODIUM INJ 100 MG/ML SYR SC ONE ×2 (18:00→18:18)
[2020-05-13] MEDS ORDERED: DEXTROSE 50% SYRINGE 50 ML IV PRN (18:00)
[2020-05-13] MEDS ORDERED: SODIUM CHLORIDE FLUSH 10 ML SYR INJ PRN (18:00)
[2020-05-13] MEDS ORDERED: HYDRALAZINE HCL 20 MG/ML VIAL IV PRN (18:00)
[2020-05-13] MEDS ORDERED: NITROGLYCERIN 0.4 MG SUBL SL PRN (18:00)
[2020-05-13] MEDS: FAMOTIDINE 20 MG TAB PO SCH (18:06)
[2020-05-13] MEDS ORDERED: SODIUM CHLORIDE 0.9% 50ML 50 ML ONE (18:11)
[2020-05-13] MEDS ORDERED: SODIUM CHLORIDE 0.9% 1000ML 1,000 ML ONE (18:18)
[2020-05-13] MEDS ORDERED: NOVOLOG100 UNIT/1 SC (18:28)
[2020-05-13] MEDS ORDERED: BASAGLAR K100 UNIT/1 (18:28)
--- NOTE | 2020-05-13 18:42 | NUR ---
[facility] contacted for transport, ETA is 30-45 minutes
--- NOTE | 2020-05-13 19:00 | NUR ---
Report to NIRMALA Bhardwaj
--- NOTE | 2020-05-13 19:39 | Diagnostic Imaging Report ---
EXAM: CT Abdomen and Pelvis WITH contrast INDICATION: abd pain LLQ COMPARISON: None. TECHNIQUE: Abdomen and pelvis were scanned utilizing a multidetector helical scanner from the lung base to the pubic symphysis after administration of IV contrast. Coronal and sagittal reformations were obtained. Routine protocol was performed. Scan was performed when during portal venous phase. IV CONTRAST: 100 mL of Isovue 370 ORAL CONTRAST: None COMPLICATIONS: None FINDINGS: LOWER THORAX: Unremarkable HEPATOBILIARY: No focal hepatic lesions. No biliary ductal dilation. GALLBLADDER: Contracted. SPLEEN: No splenomegaly. PANCREAS: No focal masses or ductal dilatation. ADRENALS: No adrenal nodules KIDNEYS/URETERS: Kidneys enhance symmetrically. No hydronephrosis. No cystic or solid mass lesions. 4 mm nonobstructive left intrarenal calculus. Question mild urothelial thickening of the renal pelvis and left ureter. GI TRACT: No abnormal distention, wall thickening, or evidence of bowel obstruction. Appendix is normal. PELVIC ORGANS/BLADDER: Circumferential wall thickening of the urinary bladder. Status post hysterectomy. LYMPH NODES: No lymphadenopathy. VESSELS: Unremarkable. PERITONEUM / RETROPERITONEUM: No free air or fluid. BONES: Unremarkable. SOFT TISSUES: Unremarkable. IMPRESSION: 1. Mild circumstantial wall thickening of the urinary bladder and urothelial thickening of the left ureter and left renal pelvis. Findings may represent an ascending urinary tract infection. Correlate with urinalysis. 2. Otherwise, no acute abdominal process. Signed by: Gavin Albert MD on 05/13/2020 7:36 PM
[2020-05-13 20:00] VITALS: BP 142/86
[2020-05-13] MEDS ORDERED: CEFTRIAXONE SOD 1 GM VIAL IV ONE (20:00)
--- NOTE | 2020-05-13 20:00 | NUR ---
Patient admitted to room 107 from [facility]. Patient arrive via EMS. Oriented to room, environment,and call light. Instructed patient to call for assistance or on the onset of pain or SOB. Call light within reach. Teaching provided on pain and fall/safety.
[2020-05-13 20:30] VITALS: BP 142/86
[2020-05-13 21:00] VITALS: BP 142/86
[2020-05-13] MEDS: INSULIN REGULAR, HUMAN 100 UNIT/1 ML 3ML VIAL SQ SCH (21:00)
[2020-05-13] MEDS ORDERED: SODIUM CHLORIDE 0.9% 250ML 250 ML ONE (21:00)
[2020-05-13] MEDS ORDERED: CEFTRIAXONE SOD 1 GM/NS 50 ML 50 ML IV ONE (21:00)
[2020-05-14] VITALS (8 sets, daily range): BP systolic 104–132; BP diastolic 72–85
[2020-05-14 02:51] LABS: CREATINE KINASE 76 IU/L (29-168)
[2020-05-14] MEDS: FAMOTIDINE 20 MG TAB PO SCH ×3 (05:48→16:51)
--- NOTE | 2020-05-14 06:23 | NUR ---
Left message with Dr Santos answering service ( [facility]) regarding new consult. Awaiting call back.
--- NOTE | 2020-05-14 07:11 | NUR ---
Bedside report and walking rounds completed with oncoming nurse. Patient in bed with call light within reach. No issues or concerns noted
[2020-05-14] MEDS: ONDANSETRON HCL INJ 2MG/ML 2ML 2 MG/ML VIAL IV PRN (08:28)
[2020-05-14] MEDS ORDERED: ASPIRIN 325 MG TAB EC PO SCH (09:00)
[2020-05-14] MEDS ORDERED: CLOPIDOGREL BISULFATE 75 MG TAB PO SCH (09:00)
[2020-05-14] MEDS: INSULIN REGULAR, HUMAN 100 UNIT/1 ML 3ML VIAL SQ SCH (09:05)
[2020-05-14 10:21] LABS: CREATINE KINASE MB 1.6 ng/mL (0-5.0)
[2020-05-14 10:38] LABS: CHOL/HDL RATIO 2.6 (3.0-3.6)
[2020-05-14] MEDS ORDERED: INSULIN LISPRO 100 UNIT/1 ML 3ML VIAL SQ SCH (11:30)
[2020-05-14] MEDS: DOCUSATE SODIUM 100 MG CAP PO SCH ×2 (12:09→21:02)
[2020-05-14] MEDS: INSULIN LISPRO 100 UNIT/1 ML 3ML VIAL SQ SCH ×5 (12:11→20:54)
[2020-05-14 12:18] LABS: ANION GAP 15.9 mmol/L (8-16); BLOOD UREA NITROGEN 9 mg/dL (7-26); BUN/CREATININE RATIO 12 (6-25); CALCIUM 9.2 mg/dL (8.4-10.2); CARBON DIOXIDE 26 mmol/L (22-29); CHLORIDE 102 mmol/L (98-107); CREATININE, SERUM 0.78 mg/dL (0.57-1.11); EST GLOMERULAR FILTRATION RATE > 60 ML/MIN (60-); GLUCOSE 255 mg/dL (74-118); POTASSIUM 3.9 mmol/L (3.5-5.1); SODIUM 140 mmol/L (136-145)
[2020-05-14 12:24] LABS: BASOPHILS % 0.3 % (0.0-1.0); EOSINOPHILS # (AUTO) 0.2 (0.0-0.4); EOSINOPHILS % 1.5 % (0.0-6.0); HEMATOCRIT 37.1 % (34.2-44.1); HEMOGLOBIN 12.4 g/dL (12.0-16.0); LYMPHOCYTES # (AUTO) 2.5 (1.0-3.2); LYMPHOCYTES % 19.2 % (18.0-39.1); MEAN CORPUSCULAR HGB CONC 33.4 g/dL (31-35); MEAN CORPUSCULAR VOLUME 95.9 fL (81-99); MONOCYTES # (AUTO) 1.1 (0.2-0.8); MONOCYTES % 8.3 % (4.4-11.3); NEUTROPHILS # (AUTO) 9.1 (2.1-6.9); NEUTROPHILS % 70.2 % (38.7-80.0); PLATELET COUNT 391 x10e3/uL (140-360); RED BLOOD COUNT 3.87 x10e6/uL (3.6-5.1); RED CELL DISTRIBUTION WIDTH 12.5 % (11.7-14.4)
--- NOTE | 2020-05-14 14:15 | Consultation ---
DATE OF CONSULTATION: 05/14/2020 Cardiology Consultation CONSULTING PHYSICIAN: Dr. Mingo Roth, Interventional Cardiology. REASON FOR CONSULTATION: Chest pain. HISTORY OF PRESENT ILLNESS: A 39-year-old woman, known from previous admissions, history of type 2 diabetes mellitus, hypertension, dyslipidemia, coronary artery disease, status post LAD drug-eluting stent PCI with [employer] [place] on 11/23/2019 for unstable angina. History of remote left circumflex stent, presents with complaints of abdominal discomfort and right flank discomfort. Incidentally, she had episode of chest discomfort, which lasted less than a minute at the time of nonradiating pressure-like occurred while at rest relieved, occurred yesterday and without recurrence since. She continues to complain of abdominal discomfort. Her serial troponins have been negative. Her abdomen and pelvis CT demonstrates mild wall thickening of the urinary bladder and arterial thickening of the left ureter and left renal pelvis concerning for possible UTI. Urinalysis and cultures have been ordered and this sent per nursing report. On telemetry, she sinus rhythm. EKG, sinus rhythm with nonspecific repolarization abnormality. REVIEW OF SYSTEMS: A 12-system review negative except for as noted above. PAST MEDICAL HISTORY: As per HPI. SOCIAL HISTORY: Smokes half pack a day over 20 years. Alcohol, occasionally. No drugs. Lives with and 2 children. ALLERGIES: NO KNOWN DRUG ALLERGIES. HOME MEDICATIONS: Reviewed. Please see medication reconciliation form. FAMILY HISTORY: Mother with hypertension. PHYSICAL EXAMINATION: VITAL SIGNS: Temperature 98.6, heart rate 87, respiratory rate 18, blood pressure 132/85, O2 saturation 100% on room air. GENERAL: No acute distress. Alert. NECK: No JVD. CHEST: Clear to auscultation. CARDIOVASCULAR: Regular rate and rhythm. Normal S1, S2. No S3 or S4. ABDOMEN: Soft. Bowel sounds positive. EXTREMITIES: No edema. Warm extremities. MEDICATIONS: Reviewed. 1. Atorvastatin 80 mg at bedtime. 2. Metoprolol succinate 12.5 mg daily. 3. Aspirin 81 mg daily. 4. Clopidogrel 75 mg daily. 5. Hydralazine 10 mg q.4 hours IV p.r.n. 6. Nitroglycerin p.r.n. STUDIES: Reviewed. Troponin I 0.022, then 0.001. Total cholesterol 150, LDL 71, HDL 58. TSH is pending. The rest of lab work including UA is pending. Coronavirus, PCR are pending. EKG as described above and imaging studies as described above. ASSESSMENT AND PLAN: A 39-year-old woman presents with episodes of fleeting chest discomfort in the setting of abdominal discomfort and imaging findings concerning for urinary tract infection with urine cultures and studies pending. Has ruled out with serial cardiac biomarkers for AMI. Continue atorvastatin, aspirin and clopidogrel. Continue metoprolol. Continue to monitor on telemetry while in-house, p.r.n. nitroglycerin. Echocardiogram has been ordered and pending. MD ROXANA Machado/LORI /[id number]
[2020-05-14 14:33] LABS: CLARITY,URINE SL CLOUDY (CLEAR); COLOR,URINE YELLOW (YELLOW); LEUKOCYTE ESTERASE ,URINE TRACE (NEGATIVE); NITRITE,URINE NEGATIVE (NEGATIVE); PROTEIN,URINE DIPSTICK NEGATIVE (NEGATIVE)
[2020-05-14 14:35] LABS: BILIRUBIN,URINE NEGATIVE (NEGATIVE); KETONES,URINE NEGATIVE (NEGATIVE); URINE UROBILINOGEN 0.2 mg/dL (0.2 - 1)
[2020-05-14 14:51] LABS: BACTERIA,URINE MODERATE /HPF; EPITHELIAL CELLS,URINE FEW /LPF; RBC,URINE 0-5 /HPF (0-5); WBC,URINE (MAN) 0-5 /HPF (0-5)
[2020-05-14] MEDS: CEFTRIAXONE SOD 1 GM/NS 50 ML 50 ML IV SCH (15:28)
[2020-05-14] MEDS: VALACYCLOVIR HCL 500 MG TAB PO SCH (16:47)
--- NOTE | 2020-05-14 17:33 | NUR ---
Called report to NIRMALA Dutton at 1715. Brought patient to room 211 at 1730. Patient AOx3, belongings with her. Call light within reach. No issues or complaints.
--- NOTE | 2020-05-14 17:36 | NUR ---
Received patient on the floor, pt in no apparent distress, pain 6/10 abdominal area, IV site R FA: no redness, no S/S infiltration or infection.
[2020-05-14] MEDS: ACETAMINOPHEN 325 MG TAB PO PRN (18:13)
[2020-05-14 18:34] LABS: CREATINE KINASE MB 1.3 ng/mL (0-5.0)
--- NOTE | 2020-05-14 19:10 | NUR ---
REPORT GIVEN TO ON COMING NURSE, PT LYING IN BED SEMI-FOWLERS, BED IN LOWEST POSITION, PT IN NO APPARENT DISTRESS
--- NOTE | 2020-05-14 19:16 | NUR ---
REPORT GIVEN TO ON COMING NURSE, PT IN NO APPARENT DISTRESS, BED IN LOWEST POSITION, LYING IN BED SEMI-FOWLERS.
[2020-05-14] MEDS ORDERED: BISACODYL 5 MG TAB EC PO PRN (19:45)
[2020-05-14] MEDS: INSULIN GLARGINE 100 UNITS/ML VIAL SQ SCH (20:54)
[2020-05-14] MEDS: ZOLPIDEM TARTRATE 5 MG TAB PO PRN (20:57)
[2020-05-14] MEDS ORDERED: [UNRECOGNIZED DRUG - OTHER] SCH (21:00)
[2020-05-14] MEDS ORDERED: INSULIN GLARGINE HUM REC ANLOG 35 UNIT SCH (21:00)
[2020-05-14] MEDS ORDERED: INSULIN GLARGINE 100 UNITS/ML VIAL SQ SCH (21:00)
[2020-05-14] MEDS: ATORVASTATIN 40 MG TAB PO SCH (21:02)
--- NOTE | 2020-05-14 21:11 | History and Physical ---
PCP: Dr. Chung. CHIEF COMPLAINT: Chest pain and left lower quadrant pain. HISTORY OF PRESENT ILLNESS: This is a 39-year-old female with past medical history of hypertension, high cholesterol, CAD x2 stents, and diabetes type 1, presented to the ER with complaints of chest pain and left lower quadrant pain that has been going on for a week. She reports the left lower quadrant pain is constant and sharp pain. She reports taking Tums to relieve the pain, but is not resolved. She reports eating and moving aggravates the pain. She describes the pain as stabbing, constant and radiating to the left side of chest and side. She denies any nausea, vomiting, shortness of breath, fever, chills, dysuria, hematuria, or constipation. In the ER, KUB showed nonobstructive bowel gas pattern with moderate colonic stool burden and no acute thoracic radiography. CT abdomen and pelvis showed thickening of the urinary bladder and urothelial thickening of the left ureteral and left renal pelvis, suggesting urinary tract infection. UA with leukocyte esterase. She was given Rocephin and admitted for further evaluation. PAST MEDICAL HISTORY: 1. Hypertension. 2. High cholesterol. 3. CAD x2 stents. 4. Diabetes type 1, insulin-dependent. PAST SURGICAL HISTORY: 1. Reports hysterectomy. 2. BTL tubal ligation. 3. Lumpectomy. FAMILY MEDICAL HISTORY: Reports mother has hypertension and unknown father's medical history. SOCIAL HISTORY: She reports smoking one-fourth of a pack per day and drinks alcohol socially. She denies any illicit drug use. ALLERGIES: NO KNOWN DRUG ALLERGIES. REVIEW OF SYSTEMS: Ten systems reviewed and negative except as reported in HPI. PHYSICAL EXAMINATION: VITAL SIGNS: Temperature 97.8, pulse is 80, respirations 18, blood pressure 128/76, and pulse ox is 99% on room air. GENERAL: No acute distress. HEENT: Normocephalic and atraumatic. NECK: Supple. LUNGS: Clear to auscultation. CARDIOVASCULAR: Regular rate and rhythm. GI: Soft and tenderness in the left lower quadrant. NEUROLOGIC: Alert, awake, and oriented x3. MUSCULOSKELETAL: Moves all extremities. SKIN: Dry and intact. No rash. PSYCH: Calm. LABORATORY DATA: WBC 12.96, hemoglobin 12.4, hematocrit 37.1, and platelets 391. Sodium 140, potassium 3.9, BUN 9, creatinine 0.78, estimated GFR greater than 60, and blood glucose 255. Troponin 0.006 and 0.022. Triglycerides 105, LDL 71, and TSH 0.756. UA with trace leukocyte esterase and moderate bacteria with trace blood and glucose. COVID PCR is pending. Urine culture is pending. IMAGING: Abdominal x-ray shows nonobstructive bowel gas pattern with moderate colonic stool burden. CT abdomen and pelvis is suggestive of urinary tract infection. IMPRESSION AND PLAN: 1. Chest pain, rule out acute coronary syndrome. Troponin x3 is negative. Echocardiogram has been ordered. Cardiology consulted for evaluation given her recent surgery of cardiac stents. 2. Urinary tract infection. CT abdomen and pelvis noted. Urine culture is pending. We will continue with Rocephin empirically. 3. Leukocytosis, likely due to steroid. We will continue with antibiotics and repeat labs in a.m. 4. Hypertension. Continue on metoprolol and hydralazine p.r.n. 5. Diabetes type 1. Continue sliding scale insulin, 8 units before meals and 35 units of Lantus at bedtime. 6. Constipation. Started on Colace b.i.d. and Dulcolax p.r.n. 7. History of coronary artery disease, status post two stents. Continue on Plavix, aspirin, and statin. 8. Deep vein thrombosis prophylaxis. Lovenox subcutaneous. PLAN: To continue current treatment, await on urine culture. Dictated by ZACK Dumas Severo Lam MD MY/MODL /[id number]
[2020-05-15] VITALS (8 sets, daily range): BP systolic 122–142; BP diastolic 76–88
[2020-05-15 05:05] LABS: BASOPHILS % 0.4 % (0.0-1.0); EOSINOPHILS # (AUTO) 0.2 (0.0-0.4); EOSINOPHILS % 1.6 % (0.0-6.0); HEMATOCRIT 34.9 % (34.2-44.1); LYMPHOCYTES # (AUTO) 2.1 (1.0-3.2); LYMPHOCYTES % 20.2 % (18.0-39.1); MEAN CORPUSCULAR HEMOGLOBIN 32.3 pg (28-32); MEAN CORPUSCULAR HGB CONC 34.4 g/dL (31-35); MEAN CORPUSCULAR VOLUME 94.1 fL (81-99); MONOCYTES # (AUTO) 0.8 (0.2-0.8); MONOCYTES % 7.9 % (4.4-11.3); NEUTROPHILS # (AUTO) 7.4 (2.1-6.9); NEUTROPHILS % 69.6 % (38.7-80.0); PLATELET COUNT 387 x10e3/uL (140-360); RED BLOOD COUNT 3.71 x10e6/uL (3.6-5.1); RED CELL DISTRIBUTION WIDTH 12.1 % (11.7-14.4)
[2020-05-15] MEDS: FAMOTIDINE 20 MG TAB PO SCH ×3 (05:21→17:59)
--- NOTE | 2020-05-15 07:00 | NUR ---
BEDSIDE SHIFT REPORT RECEIVED FROM THE BRACELET FORMER RN. PT IS AAOX4. EDUCATED PT ABOUT FALL PRECAUTIONS. PT VERBALIZED UNDERSTANDING. CALL LIGHT WITH IN EASY REACH. INSTRUCTED PT TO USE CALL LIGHT FOR ALL THE NEEDS. BED IS LOW AND LOCKED. SIDE RAILS X2. PT DENIES NEEDS AT THIS TIME.
[2020-05-15] MEDS: DOCUSATE SODIUM 100 MG CAP PO SCH ×2 (08:01→20:41)
[2020-05-15] MEDS: ASPIRIN 81 MG CHEW TAB PO SCH (08:01)
[2020-05-15] MEDS: CLOPIDOGREL BISULFATE 75 MG TAB PO SCH (08:02)
[2020-05-15] MEDS: METOPROLOL SUCCINATE 25 MG TAB XL PO SCH (08:02)
[2020-05-15] MEDS: VALACYCLOVIR HCL 500 MG TAB PO SCH ×2 (08:03→17:55)
[2020-05-15] MEDS: ACETAMINOPHEN 325 MG TAB PO PRN (08:27)
[2020-05-15] MEDS: INSULIN LISPRO 100 UNIT/1 ML 3ML VIAL SQ SCH ×7 (08:30→21:38)
--- NOTE | 2020-05-15 08:50 | NUR ---
PT IS A [address] ECKERT. AWAITING CALL BACK.
[2020-05-15] MEDS ORDERED: NON-FORMULARY MEDICATION ([Atorvastatin] 80 MG) PO SCH (09:00)
--- NOTE | 2020-05-15 09:28 | NUR ---
CALL TO MIRANDA LAO REGARDING 2 DAY OBS. STATES THEY ARE WAITING ON THE URINE CULT.
[2020-05-15] MEDS: CEFTRIAXONE SOD 1 GM/NS 50 ML 50 ML IV SCH (14:34)
--- NOTE | 2020-05-15 16:54 | NUR ---
F/U Sapna LAO NP REGARDING OBS STATUS. STATES THEY WOULD LIKE THE FINAL / 48HR .RESULT ON THE URINE CULT. STATES CT WAS POSITIVE FOR BLADDER INFECTION. NO ORDERS GIVEN
[2020-05-15] MEDS: ENOXAPARIN SOD INJ 40 MG/0.4 ML SYR SC SCH ×2 (17:00→17:55)
--- NOTE | 2020-05-15 19:05 | NUR ---
BEDSIDE SHIFT REPORT GIVEN TO THE ABAP DEVELOPER RN. PT DENIED FURTHER NEEDS.
--- NOTE | 2020-05-15 19:38 | Progress Note ---
DATE: 05/15/2020 MANAGER PHARMACEUTICAL: Dr. Santos, Cardiology. SUBJECTIVE: The patient reports left lower quadrant pain is improving some, able to tolerate diet. Denies any chest pain, shortness of breath, fever, or chills. PHYSICAL EXAMINATION: VITAL SIGNS: Temperature 97.9, pulse is 88, respirations 20, blood pressure 123/80, and pulse ox is 100% on room air. GENERAL: No acute distress. HEENT: Normocephalic and atraumatic. NECK: Supple. LUNGS: Clear to auscultation. CARDIOVASCULAR: Regular rate and rhythm. GI: Soft. Left lower quadrant tenderness improving some. NEUROLOGIC: Alert, awake, and oriented x3. MUSCULOSKELETAL: Moves all extremities. SKIN: Dry and intact. PSYCH: Calm. LABORATORY DATA: WBC 10.60, hemoglobin 12.0, hematocrit 34.9, and platelets 387. Sodium 14. CK 92, CK-MB 1.30, troponin I 0.006. Blood sugar has been within normal limits. Urine culture is negative within [address] abdomen and pelvis, thickening of the urinary bladder may represent urinary tract infection. IMPRESSION: 1. Chest pain, ruled out acute coronary syndrome. Troponin x3 negative. Echocardiogram pending results. Cardiology has been consulted. 2. Urinary tract infection. CT abdomen and pelvis noted. Continue Rocephin. Awaiting on final urine culture results. 3. Leukocytosis, resolved. Continue Rocephin. 4. Hypertension. Continue on metoprolol and hydralazine as needed. 5. Diabetes type 1. Continue 8 units of NovoLog and sliding scale before meals and 35 minutes of Lantus at bedtime. 6. Constipation. Continue Colace b.i.d. last night. 7. History of coronary artery disease, status post 2 stents. Continue Plavix, aspirin, and statin. 8. Deep vein thrombosis prophylaxis. Lovenox subcutaneous. PLAN: To continue current treatment, IV antibiotics and anticipate discharge home on antibiotics after the final urine culture results. Dictated by ZACK Dumas Severo Lam MD MY/MODL /[id number]
[2020-05-15] MEDS: ATORVASTATIN 40 MG TAB PO SCH (20:41)
[2020-05-15] MEDS: ACETAMINOPHEN/CODEINE 300MG - 30MG TAB PO PRN (20:42)
[2020-05-15] MEDS: ZOLPIDEM TARTRATE 5 MG TAB PO PRN (20:42)
[2020-05-15] MEDS: INSULIN GLARGINE 100 UNITS/ML VIAL SQ SCH (21:39)
[2020-05-16] VITALS: BP 111/68
--- NOTE | 2020-05-16 00:54 | Progress Note ---
DATE: 05/15/2020 Cardiology Progress Note SUBJECTIVE: The patient denies chest pain, shortness of breath, palpitations, dizziness, syncope, or PND. She states her abdominal pain is much improved. She denies fever, chills, nausea, vomiting, dizziness, syncope, chest pain, dyspnea, palpitations, PND or leg edema. PHYSICAL EXAMINATION: GENERAL: She is awake, alert, oriented, in no distress. VITAL SIGNS: Her blood pressure is 131/84 mmHg with a heart rate of 89 beats per minute. The pulse oximetry shows 99% oxygen saturation, and she is afebrile. HEAD AND NECK: Normocephalic and atraumatic head. Anicteric conjunctiva. Supple neck. 2+ carotid pulses without bruits. LUNGS: Clear to auscultation. CARDIAC: Regular rate and rhythm, normal S1, S2. No murmurs heard. ABDOMEN: Soft, mild tenderness to palpation, left side of lower abdomen. EXTREMITIES: No leg edema. NEUROLOGICAL: No focal findings. LABORATORY DATA: Shows a white blood cell count of 10.6K, from 12.96K yesterday, hemoglobin is 12, hematocrit is 34.9, platelet count is 387,000. Medications were reviewed. Echocardiogram 05/14/20: Left ventricle is normal in size and systolic function with an EF between 60-65%. Right ventricle is normal in size and systolic function. There are no significant valvular abnormalities detected. There is no pericardial effusion. ASSESSMENT AND PLAN: 39-year-old woman presented with brief episodes of chest discomfort and abdominal discomfort. She was treated for UTI with IV antibiotics and her symptoms have improved. The patient's serial cardiac enzymes have been negative. PLAN: Continue aspirin, Plavix, and atorvastatin and metoprolol. Continue telemetry. MD LISETTE Horne/LORI /[id number]
[2020-05-16 04:00] VITALS: BP 115/70
[2020-05-16] MEDS: FAMOTIDINE 20 MG TAB PO SCH (06:00)
--- NOTE | 2020-05-16 07:00 | NUR ---
BEDSIDE SHIFT REPORT RECEIVED FROM THE CUSTOMER SUPPORT PROFESSIONAL RN. EDUCATED PT ABOUT FALL PRECAUTIONS. PT VERBALIZED UNDERSTANDING. BED IS LOW AND LOCKED. SIDE RAILS X2. CALL LIGHT WITH IN EASY REACH. ALL SAFETY MEASURES IN PLACE. PT DENIES NEEDS AT THIS TIME.
[2020-05-16] MEDS: INSULIN LISPRO 100 UNIT/1 ML 3ML VIAL SQ SCH ×4 (07:30→12:15)
[2020-05-16 07:37] VITALS: BP 120/83
[2020-05-16 07:53] VITALS: BP 120/83
[2020-05-16] MEDS: ASPIRIN 81 MG CHEW TAB PO SCH (08:32)
[2020-05-16] MEDS: DOCUSATE SODIUM 100 MG CAP PO SCH (08:32)
[2020-05-16] MEDS: CLOPIDOGREL BISULFATE 75 MG TAB PO SCH (08:33)
[2020-05-16] MEDS: VALACYCLOVIR HCL 500 MG TAB PO SCH (08:34)
[2020-05-16] MEDS: METOPROLOL SUCCINATE 25 MG TAB XL PO SCH (08:45)
[2020-05-16] MEDS: ACETAMINOPHEN/CODEINE 300MG - 30MG TAB PO PRN (08:46)
--- NOTE | 2020-05-16 09:25 | Progress Note ---
DATE: 05/16/2020 Cardiology Progress Note SUBJECTIVE: Denies any chest pain or shortness of breath. Abdominal discomfort has improved. No complaints today. OBJECTIVE: VITAL SIGNS: Temperature 97.7, heart rate 87, blood pressure 120/83, respiratory rate 20, and O2 saturation 100%. GENERAL: In no acute distress. Alert. NECK: No JVD. CHEST: Clear to auscultation. CARDIOVASCULAR: Regular rate and rhythm. Normal S1 and S2. No S3 or S4. ABDOMEN: Soft. Bowel sounds positive. EXTREMITIES: No edema. CARDIOVASCULAR MEDICATIONS: Reviewed. Atorvastatin 80 mg at bedtime, aspirin 81 mg daily, nitroglycerin p.r.n., clopidogrel 75 mg daily, metoprolol succinate 12.5 mg daily, atorvastatin 80 mg at bedtime, and Lovenox 40 mg subcutaneous daily. STUDIES: Reviewed. Potassium 3.9, creatinine 0.78, and glucose 255. White blood cells 10.6, hemoglobin 12, and platelets 387. ASSESSMENT AND PLAN: 1. A 39-year-old woman with history of coronary artery disease with previous coronary stents, presents with bleeding, atypical chest discomfort in the setting of abdominal discomfort associated to urinary tract infection. 2. Hypertension and dyslipidemia. 3. On echocardiogram with preserved ventricular systolic function and normal regional wall motion. From a cardiovascular standpoint, okay to discharge with current cardiovascular medications. Blood glucose optimization advised. Outpatient followup upon discharge in 4 to 6 weeks. MD ROXANA Machado/LORI /[id number]
[2020-05-16] MEDS ORDERED: KEFLEX500 MG PO (10:55)
[2020-05-16] MEDS ORDERED: DIFLUCAN150 MG PO (10:56)
[2020-05-16 11:29] VITALS: BP 136/86
--- NOTE | 2020-05-16 11:30 | NUR ---
CHRISTAL TO D/C PT PER DR. GUILLORY AND SHILO JEAN. PT IS WAITING FOR FAMILY MEMBER TO WELDER PLASMA ARC THE PT. ETA 3 PM. INFORMED THE SAME TO EXTERNAL GRINDER TENDER.
[2020-05-16] MEDS ORDERED: ONDANSETRON HCL 4 MG ORAL DISINTEGRATING TAB PO PRN (12:45)
[2020-05-16] MEDS: CEFTRIAXONE SOD 1 GM/NS 50 ML 50 ML IV SCH (13:00)
--- NOTE | 2020-05-16 22:19 | Discharge Summary ---
PCP: Dr. Chung. FINAL DISCHARGE DIAGNOSES: 1. Chest pain, ruled out acute coronary syndrome. 2. Urinary tract infection. 3. Leukocytosis. 4. Hypertension. 5. Insulin-dependent type 1 diabetes. 6. History of coronary artery disease, status post 2 stents. CONSULTANTS: Dr. Santos with Cardiology. PROCEDURES: None. HISTORY: Per HPI. HOSPITAL COURSE: This is a 39-year-old female with past medical history of hypertension, diabetes, CAD, status post stent, presented to the ER with complaints of left lower quadrant pain and chest pain, which she reported was similar to when she had her PA in the past. So, Cardiology was consulted. Troponin was trended. ACS was ruled out. Echocardiogram with an EF of 60% to 65%. CT abdomen and pelvis showed ascending urinary tract infection. She was started on Rocephin and urine culture is sent. Although urine culture was negative. Per imaging and symptoms, the patient was improving with Rocephin. She remained afebrile, no chest pain, shortness of breath, hematuria, or dysuria. Left lower quadrant pain has improved significantly, rating pain 4/10. We will discharge home on Keflex to complete her UTI treatment. PHYSICAL EXAMINATION: VITAL SIGNS: Temperature 98.0, pulse is 88, respirations 20, blood pressure 136/86, pulse ox is 100% on room air. GENERAL: No acute distress. HEENT: Normocephalic and atraumatic. NECK: Supple. LUNGS: Clear to auscultation. CARDIOVASCULAR: Regular rate and rhythm. GI: Soft and decreased left lower quadrant pain. NEUROLOGIC: Alert, awake, and oriented x3. MUSCULOSKELETAL: Moves all extremities. No edema. SKIN: Dry and intact. PSYCH: Calm. CONDITION AT DISCHARGE: Improved and stable. DISCHARGE MEDICATIONS: Please see medication reconciliation list. FOLLOWUP: Follow up with PCP and Cardiology in 1 to 2 weeks. TIME SPENT: Total discharge time is 32 minutes. Dictated by ZACK Dumas Severo Lam MD MY/MODL /[id number] cc: Dr. Sheldon [facility]ekPremier [facility]
--- OUTSIDE RECORDS SUMMARY | 2020-05-17 18:31 | XMS REPORT | Continuity of Care Document ---
Author Author [facility] t Organization [facility] Address [address] [place] [address] Phone Unavailable Care Team Providers Care Cooking Instructor Name Role Phone NO, PCP PCP Unavailable Todd ECKERT Attphys Unavailable CHANO RODRIGUEZ Attphys Unavailable Todd KULKARNIPH Attphys Unavailable Dafne QUINONEZ Attphys Unavailable Todd ECKERT Admphys Unavailable CHANO RODRIGUEZ Admphys Unavailable Dafne QUINONEZ Admphys Unavailable Payers Payer Name Policy Type Policy Number Effective Date Expiration Date S andrewelsie Umr Ppo NA 2019 00:00:00 [facility] [id number] [facility] Self Pay NA [facility] Problems Condition Name Condition Details Condition Category Status Onset Date Resolution Date Last Treatment Date Treating Clinician Comments Source Unstable angina pectoris Problem Active [facility] Hyperglycemia Problem Active [facility] Dehydration Problem Active [facility] Allergies, Adverse Reactions, Alerts Allergy Name Allergy Type Status Severity Reaction(s) Onset Date Inacti ve Date Treating Clinician Comments Source No Known Allergies DA Active U 2019-08-04 00:00:00 [facility] No Known Allergies DA Active U 2019-03-30 00:00:00 [facility] No Known Drug Allergies DA Active U 2001-04-27 00:00:00 [facility] Social History Social Habit Start Date Stop Date Quantity Comments Source History of tobacco use Cigarette Smoker [place] [facility]ominational History SDOH Alcohol Std Drinks [place] History SDOH Alcohol Binge [place] Sex Assigned At Rod kadyermias Nondenominational Cigarettes smoked current (pack per day) - Reported 00:00:00 2019-03-27 00:00:00 [place] Tobacco use and exposure 2019-03-27 00:00:00 2019-03-27 00:00:00 Ramy hduson used [place] Alcohol intake 2019-03-27 00:00:00 2019-03-27 00:00:00 Lifetime non-drinker (finding) [place]enominational History SDOH Alcohol Frequency 2019-03-27 00:00:00 2019-03-27 00:00:0 0 1 [place] Smoking Status Start Date Stop Date Source Current every day smoker 2019-03-27 00:00:00 Rod Mcmanus Medications Ordered Medication Name Filled Medication Name Start Date Stop Da te Current Medication? Ordering Clinician Indication Dosage Frequency Signature (SIG) Comments Components Source Aspirin (Aspir 81) 81 Mg TABLET. Aspirin (Aspir 81) 81 Mg TABLET. 2019-11-24 14:21:00 Yes 81 Daily [facility] Clopidogrel Bisulfate (Plavix) 75 Mg TABLET Clopidogre l Bisulfate (Plavix) 75 Mg TABLET 2019-11-24 14:21:00 Yes 75 Daily [facility] Topiramate (Topamax) 25 Mg TABLET Topiramate (Topamax) 25 Mg TABLET 2019-11-24 14:21:00 Yes 200 Twice A Day [facility] Valacyclovir Hcl (Valtrex) 500 Mg TAB Valacyclovir Hcl (Valt jose david) 500 Mg TAB 2019-11-24 14:21:00 Yes 500 Twice A Day [facility] Insulin Regular, Human (Humulin R) 100 Unit/1 Ml VIAL Insulin Regular, Human (Humulin R) 100 Unit/1 Ml VIAL 2019-11-24 14:17:00 Yes 0 Before Meals And At Bedtime [facility] Atorvastatin Atorvastatin 2019-11-24 14:14:00 Yes 80 Daily [facility] Metformin Hcl Metformin Hcl 2019-11-24 14:14:00 Yes 1000 Twice Daily With Meals [facility] Metoprolol Succinate (Toprol Xl) 25 Mg TAB.ER.24H Meto prolol Succinate (Toprol Xl) 25 Mg TAB.ER.24H 2019-11-24 14:14:00 Yes 12.5 Martha ly [facility] insulin regular (HumuLIN-R, NovoLIN-R) 100 unit/mL injection 2019-03-27 11:51:45 Yes 10U Infuse 10 Units into a venous catheter once. 10 units in morning before she eats & [address] Mcmanus insulin NPH (HumuLIN-N) 100 unit/mL injection 2019-03-27 11:51:4 5 Yes 30U Inject 30 Units under the sk in. Pt does 30 units in the morning before breakfast and 15 units before dinner Rod Mcmanus aspirin (ECOTRIN) 81 MG enteric coated tablet 2019-03-27 11:51:4 5 Yes 81mg QD Take 81 mg by mouth daily. H jacques Mcmanus Aspirin (Aspir 81) 81 Mg TABLET. Aspirin (Aspir 81) 81 Mg TABL ET. 2019-11-24 00:00:00 No 81 Daily [facility] Clopidogrel Bisulfate (Plavix) 75 Mg TABLET Clopidogre l Bisulfate (Plavix) 75 Mg TABLET 2019-11-24 00:00:00 No 75 Daily [facility] Insulin Regular, Human (Humulin R) 100 Unit/1 Ml VIAL Insulin Regular, Human (Humulin R) 100 Unit/1 Ml VIAL 2019-11-24 00:00:00 No 15 Before Breakfast [facility] Insulin Regular, Human (Humulin R) 100 Unit/1 Ml VIAL Insulin Regular, Human (Humulin R) 100 Unit/1 Ml VIAL 2019-11-24 00:00:00 No 10 Before Supper [facility] Lisinopril Lisinopril 2019-11-24 00:00:00 No 6.25 Twi ce A Day [facility] Nph, Human Insulin Isophane (Novolin N) 100 Unit/1 Ml VIAL Nph, Human Insulin Isophane (Novolin N) 100 Unit/1 Ml VIAL 2019-11-24 00:00:00 No 30 Before Breakfast [facility] Nph, Human Insulin Isophane (Novolin N) 100 Unit/1 Ml VIAL Nph, Human Insulin Isophane (Novolin N) 100 Unit/1 Ml VIAL 2019-11-24 00:00:00 No 20 Before Supper [facility] Topiramate (Topamax) 25 Mg TABLET Topiramate (Topamax) 25 Mg TAB LET 2019-11-24 00:00:00 No 200 Twice A Day [facility] Valacyclovir Hcl (Valtrex) 500 Mg TAB Valacyclovir Hcl (Valtrex) 500 Mg TAB 2019-11-24 00:00:00 No 500 Twice A Day [facility] Vital Signs Vital Name Observation Time Observation Value Comments Source Body Temperature 2019-11-24 12:45:00 98.5 [degF] [facility] BMI (Body Mass Index) 2019-11-22 09:57:00 22.5 kg/m2 [facility] Weight 2019-11-22 04:28:00 135 [lb_av] [facility] Procedures This patient has no known procedures. Plan of Care Planned Activity Planned Date Details Comments Source Instructions Angina [facility] Encounters Start Date/Time End Date/Time Encounter Type Admission Type Attendi [facility] Care Department Encounter ID Source 2019-11-22 05:26:00 2019-11-24 16:25:00 Discharged Inpatient 1 CHANO RODRIGUEZ [facility] [id number] [facility] 2019-01-13 17:16:00 2019-01-13 18:53:00 Departed Emergency Room 1 LILIANA KULKARNI [facility] [id number] [facility] 2018-02-22 19:09:00 2018-02-23 14:39:00 Discharged Inpatient (obs) 1 JUNIOR QUINONEZ [facility] [id number] [facility] Results Test Description Test Time Test Comments Results Result Comments Source CT ABD/PEL WITH CONTRAST-HOPD 2020-05-13 19:30:[address] [facility] : 1980 Sex: F [place] [address] Patient Name: JUAN ALBERTO DUONG MR #: [id number] : 1980 Age/Sex: 39/F Req #: [id number] [facility] Physician: GARY ECKERT MD Ordered by: BRO VELASQUEZ MD Report #: [id number] Location: [facility] Room/Bed: [place] [address] Procedure: [id number] HOPD/CT ABD/PEL WITH CONTRAST-HOPD Exam Date: Exam Time: REPORT STATUS: Signed EXAM: CT Abdomen and Pelvis WITH contra st INDICATION: abd pain LLQ COMPARISON: None. TECHNIQUE: Abdomen and pelvis were scanned utilizing a multidetector helical scanner from the lung base to the pubic symphysis after administration of IV contrast. Coronal and sagittal reformations were obtained. Routine protocol was performed. Scan was performed when during portal venous phase. IV CONTRAST: 100 mL of Isovue 370 ORAL CONTRAST: None COMPLICATIONS: None FINDINGS: LOWER THORAX: Unremarkable HEPATOBILIARY: No focal hepatic lesions. No biliary ductal dilation. GALLBLADDER: Contracted. SPLEEN: No splenomegaly. PANCREAS: No focal masses or ductal dilatation. ADRENALS: No adrenal nodules KIDNEYS/URETERS: Kidneys enhance symmetrically. No hydronephrosis. No cystic or solid mass lesions. 4 mm nonobstructive left intrarenal calculus. Question mild urothelial thickening of the renal pelvis and left ureter. GI TRACT: No abnormal distention, wall thickening, or evidence of bowel obstruction. Appendix is normal. PELVIC ORGANS/BLADDER: Circumferential wall thickening of the urinary bladder. Status post hysterectomy. LYMPH NODES: No lymphadenopathy. VESSELS: Unremarkable. PERITONEUM / RETROPERITONEUM: No free air or fluid. BONES: Unremarkable. SOFT TISSUES: Unremarkable. IMPRES EDWARD: 1. Mild circumstantial wall thickening of the urinary bladder and urothelial thickening of the left ureter and left renal pelvis. Findings may represent an ascending urinary tract infection. Correlate with urinalysis. 2. Otherwise, no acute abdominal process. Signed by: Pierre Albert MD on 05/13/2020 7:36 PM Dictated By: PIERRE ALBERT MD 35 Transcribed By: SALONI on 05/13/201935 COPY TO: BRO VELASQUEZ MD ABDOMEN COMPLETE - HOPD 2020-05-13 17:29:00 [facility] : 1980 Sex: F [facility] [address] [place] [address] Patient Name: JUAN ALBERTO DUONG MR #: [id number] : 1980 Age/Sex: 39/F [facility] #: [id number] Req #: [id number] Adm Physician: Ordered by: BRO VELASQUEZ MD Report #: [id number] Location: [facility] Room/Bed: Procedure: [id number] HOPD/ABDOMEN COMPLETE - HOPD Exam Date: 05/13/20 Exam Time: 1712 REPORT STATUS: Signed EXAMINATION: ABDOMEN COMPLETE - HOPD INDICATION: Chest and abdominal pain. COMPARISON: Chest x- ray on 11/22/2019. FINDINGS: CHEST: TUBES and LINES: None. LUNGS: Lungs are well inflated. Lungs are clear. There is no evidence of pneumonia or pulmonary edema. PLEURA: No pleural effusion or pneumothorax. HEART AND MEDIASTINUM: The cardiomediastinal silhouette is unremarkable. Coronary stents are noted. BONES AND SOFT TISSUES: No acute osseous lesion. Soft tissues are unremarkable. ABDOMEN: Nonobstructive bowel gas pattern. Moderate colonic stool burden. No evidence of pneumoperitoneum. No abnormal calcifications. The bones are normal for age. Soft tissues are normal. IMPRESSION: 1. Nonobstructive bowel gas pattern with moderate colonic stool burden. 2. No acute thoracic radiographic abnormality. Signed by: Cem Kovacs MD on 05/13/2020 5:32 PM Dictated By: CEM KOVACS MD 31 Transcribed By: SALONI on 05/13/201731 COPY TO: BRO VELASQUEZ MD Capillary blood glucose measurement by glucometer (mas s/volume) 2019-11-24 11:48:00 Test Item Bedside Glucose (test code = 41517-4) 256 70-120 Meter ID: [id number] [facility] & [facility]ownBlood leukocytes automated count (number/volume)2019-11-24 05:10:00* Test Item Value Reference Range Interpretation Comments White Blood Count (test code = 6690-2) 8.31 4.8-10.8 [facility]own[facility]akes [facility] erythrocytes automated count (number/volume)2019-11-24 05:10:00* Test Item Value Reference Range Interpretation Comments Red Blood Count (test code = 789-8) 4.02 3.6-5.1 [facility]ownBlood hemoglobin measurement (moles/volume)2019-11-24 05:10:00* Test Item Value Reference Range Interpretation Comments Hemoglobin (test code = 42669-5) 12.5 12.0-16.0 [facility]ptownAutomated blood hematocrit (volume fraction)2019-11-24 05:10:00* Test Item Value Reference Range Interpretation Comments Hematocrit (test code = 4544-3) 37.5 34.2-44.1 [facility]ptownAutomated erythrocyte mean corpuscular [id number] 05:10:00* Test Item Value Reference Range Interpretation Comments Mean Corpuscular Volume (test code = 787-2) 93.3 81-99 [facility]ownAutomated erythrocyte mean corpuscular hemoglobin (mass per erythrocyte)2019-11-24 05:10:00* Test Item Value Reference Range Interpretation Comments Mean Corpuscular Hemoglobin (test code = 785-6) 31.1 28-32 [facility]ptownAutomated erythrocyte mean corpuscular hemoglobin concentration measurement (mass/volume)2019-11-24 05:10:00* Test Item Value Reference Range Interpretation Comments Mean Corpuscular Hemoglobin Concent (test code = 786-4) 33.3 31-35 [facility] UptownRDW FdlPb-Rea0294-83-14 05:10:00* Test Item Value Reference Range Interpretation Comments Red Cell Distribution Width (test code = 51561-5) 11.9 11.7 -14.4 [facility]ptownAutomated blood platelet count (count/volume)2019-11-24 05:10:00* Test Item Value Reference Range Interpretation Comments Platelet Count (test code = 777-3) 339 140-360 [facility] UptownAutomated blood segmented neutrophil count as percentage of total bosimnaijh8801-53-84 05:10:00* Test Item Value Reference Range Interpretation Comments Neutrophils (%) (Auto) (test code = 29244-7) 56.4 38.7-80.0 [facility]ptownAutomated blood lymphocyte count as percentage ot total ihtyxvhkgc8377-62-30 05:10:00* Test Item Value Reference Range Interpretation Comments Lymphocytes (%) (Auto) (test code = 736-9) 29.5 18.0-39.1 [facility]ptownAutomated blood monocyte count as percentage of total mudsafufnq7352-64-41 05:10:00* Test Item Value Reference Range Interpretation Comments Monocytes (%) (Auto) (test code = 5905-5) 9.9 4.4-11.3 [facility]ownAutecu health medical centered blood eosinophil count as percentage of total inxybkmykj7095-36-72 05:10:00* Test Item Value Reference Range Interpretation Comments Eosinophils (%) (Auto) (test code = 713-8) 3.6 0.0-6.0 [facility]ownAutecu health medical centered blood basophil count as percentage of total kpbarcpotr3349-13-67 05:10:00* Test Item Value Reference Range Interpretation Comments Basophils (%) (Auto) (test code = 706-2) 0.5 0.0-1.0 [facility] UptownFluoroscopic procedure less than one hour sjtiefux6580-19-71 05:10:00* Test Item Value Reference Range Interpretation Comments IM GRANULOCYTES % (test code = IM GRANULOCYTES %) 0.1 0.0- 1.0 [facility]ownAutomated blood neutrophil count 2019-11-24 05:10:00* Test Item Value Reference Range Interpretation Comments Neutrophils # (Auto) (test code = 751-8) 4.7 2.1-6.9 [facility]ownBlood lymphocytes count (number/volume) 2019-11-24 05:10:00* Test Item Value Reference Range Interpretation Comments Lymphocytes # (Auto) (test code = 77383-2) 2.5 1.0-3.2 [facility]ownBlood monocytes automated count (number/volume)2019-11-24 05:10:00* Test Item Value Reference Range Interpretation Comments Monocytes # (Auto) (test code = 742-7) 0.8 0.2-0.8 [facility] UptownAutomated blood eosinophil count 2019-11-24 05:10:00* Test Item Value Reference Range Interpretation Comments Eosinophils # (Auto) (test code = 711-2) 0.3 0.0-0.4 [facility]ptownAutomated blood basophil count (count/volume)2019-11-24 05:10:00* Test Item Value Reference Range Interpretation Comments Basophils # (Auto) (test code = 704-7) 0.0 0.0-0.1 [facility] UptownFluoroscopic procedure less than one hour yrdordzf2281-86-00 05:10:00* Test Item Value Reference Range Interpretation Comments Absolute Immature Granulocyte (auto (fernando t code = Absolute Immature Granulocyte (auto) 0.01 0-0.1 [facility] sodium measurement (moles/volume)2019-11-24 05:10:00* Test Item Value Reference Range Interpretation Comments Sodium Level (test code = 2951-2) 141 136-145 [facility]er[facility] plasma potassium measurement (moles/volume)2019-11-24 05:10:00* Test Item Value Reference Range Interpretation Comments Potassium Level (test code = 2823-3) 3.5 3.5-5.1 [facility] plasma chloride measurement (moles/volume)2019-11-24 05:10:00* Test Item Value Reference Range Interpretation Comments Chloride Level (test code = 2075-0) 107 98-107 [facility] Hospitalerum or plasma carbon dioxide, total measurement (moles/volume)2019-11-24 05:10:00* Test Item Value Reference Range Interpretation Comments Carbon Dioxide Level (test code = 2028-9) 27 22-29 [facility] Hospitalerum or plasma anion xrm1480-34-06 05:10:00* Test Item Value Reference Range Interpretation Comments Anion Gap (test code = 43131-6) 10.5 8-16 [facility] Hospitaler[facility] or plasma urea nitrogen measurement (mass/volume)2019-11-24 05:10:00* Test Item Value Reference Range Interpretation Comments Blood Urea Nitrogen (test code = 3094-0) 16 7-26 [facility] Hospitalerum or plasma creatinine measurement (mass/volume)2019-11-24 05:10:00* Test Item Value Reference Range Interpretation Comments Creatinine (test code = 2160-0) 0.68 0.57-1.11 [facility] Hospitaler[facility] or plasma urea nitrogen/creatinine mass oelor9610-25-10 05:10:00* Test Item Value Reference Range Interpretation Comments BUN/Creatinine Ratio (test code = 3097-3) 24 6-25 [facility] UptownEstimated glomerular filtration rate (GFR) hyodcqmfbadqb2832-73-92 05:10:00* Test Item Value Reference Range Interpretation Comments Estimat Glomerular Filtration Rate (test code = 618662721) > 60 >60 Ranges were taken from the National Kidney Disease Education Program and the Rosita alleghany healthal Kid[employer] Foundation literature.Reference ranges:60 or greater: Pgyxjz99-89 ( for 3 consecutive months): Chronic kidney disease 15 or less: Kidney failureBaylor Scott & White Medical Center – UptownGlucose kytnhkiwtij3365-94-90 05:10:00* Test Item Value Reference Range Interpretation Comments Glucose Level (test code = SOD5142) 63 74-118 [facility] Hospitalerum or plasma calcium measurement (mass/volume)2019-11-24 05:10:00* Test Item Value Reference Range Interpretation Comments Calcium Level (test code = 95723-0) 9.1 8.4-10.2 [facility] Hospitalerum or plasma magnesium measurement (mass/volume)2019-11-24 05:10:00* Test Item Value Reference Range Interpretation Comments Magnesium Level (test code = 23597-1) 1.9 1.3-2.1 [facility] UptownProthrombin time (PT) in platelet poor plasma by coagulation bdrky1907-50-53 04:40:00* Test Item Value Reference Range Interpretation Comments Prothrombin Time (test code = 5902-2) 12.6 11.9-14.5 [facility] UptownINR in Platelet poor plasma by Coagulation xjjwc4515-87-80 04:40:00* Test Item Value Reference Range Interpretation Comments Prothromb Time International Ratio (test code = 6301-6) 0.89 Oral Anticoagulant Therapy INR Values:1. Low Intensity Therapy 1.5 - 2.02 . Moderate Intensity Therapy 2.0 - 3.03. High Intensity Therapy(1) 2.5 - 3. 54. High Intensity Therapy(2) 3.0 - 4.05. Panic Value INR > 5.0 [facility] UptownActivated partial thromboplastin time (aPTT) in platelet poor plasma by coagulation plhfa6040-33-45 04:40:00* Test Item Value Reference Range Interpretation Comments Activated Partial Thromboplast Time (test code = 25253-5) 26.6 23.8-35.5 [facility] UptownFluoroscopic procedure less than one hour wzomutoa8563-11-80 04:40:00* Test Item Value Reference Range Interpretation Comments Hemoglobin A1c Percent (test code = Hemoglobin A1c Percent) 12.9 4.0-7.0 [facility] UptownPhosphorus lmhfsonxivi3637-25-31 04:40:00 * Test Item Value Reference Range Interpretation Comments Phosphorus Level (test code = QTG9646) 3.4 2.3-4.7 [facility] Hospitalerum or plasma total bilirubin measurement (mass/volume)2019-11-23 04:40:00* Test Item Value Reference Range Interpretation Comments Total Bilirubin (test code = 1975-2) 0.7 0.2-1.2 [facility] UptownFluoroscopic procedure less than one hour pnxibdwj3281-34-85 04:40:00* Test Item Value Reference Range Interpretation Comments Aspartate Amino Transf (AST/SGOT) (test code = Aspartate Amino Transf (AST/SGOT)) 19 5-34 [facility] Hospitalerum or plasma alanine aminotransferase measurement (enzymatic activity/volume)2019-11-23 04:40:00* Test Item Value Reference Range Interpretation Comments Alanine Aminotransferase (ALT/SGPT) (test code = 1742-6) 16 0-55 [facility] Hospitalerum or plasma protein measurement (mass/volume)2019-11-23 04:40:00* Test Item Value Reference Range Interpretation Comments Total Protein (test code = 2885-2) 6.8 6.5-8.1 [facility] plasma albumin measurement (mass/volume)2019-11-23 04:40:00* Test Item Value Reference Range Interpretation Comments Albumin (test code = 1751-7) 3.5 3.5-5.0 [facility] UptownPlasma globulin measurement (mass/volume) 2019-11-23 04:40:00* Test Item Value Reference Range Interpretation Comments Globulin (test code = 34754-7) 3.3 2.3-3.5 [facility] Hospitalerum or plasma albumin/globulin mass qwmsh9042-26-66 04:40:00* Test Item Value Reference Range Interpretation Comments Albumin/Globulin Ratio (test code = 1759-0) 1.1 0.8-2.0 [facility] or plasma alkaline phosphatase measurement (enzymatic activity/volume)2019-11-23 04:40:00* Test Item Value Reference Range Interpretation Comments Alkaline Phosphatase (test code = 6768-6) 50 40-150 [facility]er[facility] or plasma triglyceride measurement (mass/volume)2019-11-23 04:40:00* Test Item Value Reference Range Interpretation Comments Triglycerides Level (test code = 2571-8) 82 0-149 [facility] Hospitalerum or plasma cholesterol measurement (mass/volume)2019-11-23 04:40:00* Test Item Value Reference Range Interpretation Comments Cholesterol Level (test code = 2093-3) 164 0-199 Less than 200 mg/dL Low Bcbj713 - 239 mg/dL Borderline Tcdk497 m g/dl and greater High Risk [facility]er[facility] or plasma cholesterol in LDL measurement (mass/volume) 2019-11-23 04:40:00* Test Item Value Reference Range Interpretation Comments LDL Cholesterol (test code = 2089-1) 82 60-130 [facility]er[facility] plasma cholesterol in HDL measurement (mass/volume)2019-11-23 04:40:00* Test Item Value Reference Range Interpretation Comments HDL Cholesterol (test code = 2085-9) 66 40-60 [facility]erum or plasma total cholesterol/cholesterol in HDL mass xtvel5447-32-96 04:40:00* Test Item Value Reference Range Interpretation Comments Cholesterol/HDL Ratio (test code = 9830-1) 2.5 3.0-3.6 [facility] or plasma thyrotropin measurement by detection limit <= 0.005 miu/l (units/volume)2019-11-23 04:40:00* Test Item Value Reference Range Interpretation Comments Thyroid Stimulating Hormone (TSH) (test code = 32395-6) 0.401 0.350-4.940 [facility] Hospitalerum or plasma creatine kinase measurement (enzymatic activity/volume)2019-11-22 18:00:00* Test Item Value Reference Range Interpretation Comments Creatine Kinase (test code = 2157-6) 182 29-168 [facility] Hospitalerum or plasma creatine kinase MB measurement (mass/volume)2019-11-22 18:00:00* Test Item Value Reference Range Interpretation Comments Creatine Kinase MB (test code = 45088-4) 6.30 0-5.0 [facility] UptownTroponin I measurement by highly sensitive enzyme qtecuqgnywv8153-05-61 18:00:00* Test Item Value Reference Range Interpretation Comments Troponin I (test code = 86226-4) 0.008 0-0.300 [facility] UptownFluoroscopic procedure less than one hour ccxqmtwj2684-03-91 08:10:00* Test Item Value Reference Range Interpretation Comments Coronavirus (PCR) (test code = Coronavirus (PCR)) NOT DETECTED NOTD ETECTED SARS-COV-2 (COVID19), HIGHRISK, RT-PCRNegative results do not preclude SARS-CoV- 2 infection and should not be used as the sole basis for patient management deci sions. Negative results must be combined with clinical observations, patient his tory, and epidemiological information. Optimum specimen types and timing for pea k viral levels during infections caused by SARS-CoV-2 have not been determined. Collection of multiple specimens ot types of specimens may be necessary to detec t virus. Improper specimen collection and handling, sequence variability under p rimers/probes, or organism present below the limit of detection may lead to fals e negative results. Positive and negative predictive values of testing are highl y dependent on prevalance. False negative test results are more likely when prev alence is high.The expected result is negative (not detected).The SARS-CoV-2 fernando t is intended for the qualitative detection of nucleic acid from SARS-CoV-2 in n asopharyngeal and oropharyngeal swab samples from patients who meet COVID-19 cli nical and or epidemiological criteria. For lower respiratory tract specimens, th e assay is submitted for authoriztion by FDA under an Emergency Use Authorizatio n (EUA). Testing methodology is real time RT-PCR. If received as separate collec tion devices, nasopharygeal and oropharyngeal specimens are combined for analysi s. Additional specimens may be split to a separate accession for analysi and rep orting as this test includes a single unit of service.Test results must be corre lated with clinical presentation and evaluated in the context of other laborator y and epidemiologic data. Test performance can be affected because the epidemiol ogy and clinical spectrum of infection caused by SARS-CoV-2 is not fully known. For example, the optimum types of specimens to collect and when during the cours e of infection these specimens are most likely to contain detectable viral RNA m ay not be known.This test has not been Food and Drug Administration (FDA) cleare d or approved and has been authorized by FDA under an Emergency Use Authorizatio n (EUA). The test is only authorized for the duration of the declaration that ci rcumstances exist justifying the authorization of emergency use of in vitro diag nostic tests for detection and/or diagnosis of SARS-CoV-2 under section 564(b) o f the Act, 21 U.S.C. section 360bbb-3(b)(1), unless the authorization is termina sallie or revoked sooner. [facility] are certified under the C linical Laboratory Improvement Amendments of 1988 (CLIA), 42 U.S.C. section 263a , to perform high complexity tests.Testing performed by [facility] [address] [phone] Director: Juan Sanchez M.D.IA # [id number] [facility] - [id number] 06:01:00 [facility] [address] [address] Patient Name: JUAN ALBERTO DUONG MR #: [id number] : 1980 Age/Sex: 39/F Req #: [id number] Adm Physician: CHANO RODRIGUEZ MD Ordered by: KELECHI CHAMBERLAIN Report #: [id number] Location: [facility] Room/Bed: [place] [address] Procedure: [id number] HOPD/CX R 1 [facility] Exam Date: 11/22/19 Exam Time: 0545 REPORT STATUS: Signed EXAMINATION : CXR 1 INDICATION: Chest pain COMPARISON: No ne FINDINGS: TUBES and LINES: None. LUNGS: Lungs are well inf lated. Lungs are clear. There is no evidence of pneumonia or pulmonary edema . PLEURA: No pleural effusion or pneumothorax. HEART AND MEDIASTINUM: The cardiomediastinal silhouette is unremarkable. Coronary stents are noted. BONES AND SOFT TISSUES: No acute osseous lesion. Soft tissues are unre markable. UPPER ABDOMEN: No free air under the diaphragm. IMPRESSI ON: No acute thoracic radiographic abnormality. Signed by: Guerda zamarripa MD on 11/22/2019 6:02 AM Dictated By: GUERDA CORRALES MD 1 Transcribed By: SALONI on 11/21 COPY TO: KELECHI CHAMBERLAIN BASIC METABOLIC PANEL 2019-08-04 20:17:00* Test Item Value Reference Range Interpretation Comments SODIUM (test code = NA) 135 mmol/L 136-145 L POTASSIUM (test code = K) 4.3 mmol/L 3.5-5.1 N CHLORIDE (test code = CL) 100.0 mmol/L 98-107 N CARBON DIOXIDE (test code = CO2) 30.0 mmol/L 21-32 N ANION GAP (test code = GAP) 9.3 10-20 L GLUCOSE (test code = GLU) 500 mg/dL 74-106 H BLOOD UREA NITROGEN (test code = BUN) 14 mg/dL 7-18 N GLOMERULAR FILTRATION RATE (test code = GFR) > 60 mL/min >=60 Estimated GFR by using Modified MDRD formula.Chronic kidney disease is defined as either kidney damageor GFR <60 mL/min/1.73 m2 for >3 months. CREATININE (test code = CREAT) 1.00 mg/dL 0.55-1.02 N Note change in reference range due to change in reagent. BUN/CREATININE RATIO (test code = BUN/CREA) 14.0 10-20 N CALCIUM (test code = CA) 9.2 mg/dL 8.5-10.1 N HCG SERUM [id number] 20:17:00* Test Item Value Reference Range Interpretation Comments HCG SERUM QUAL (test code = HCGQL) NEGATIVE NEGATIVE This HCGQL test is NOT applicable for MALE patients.Check with nurse about probable order error.If Tumor Marker Test needed, nurse should order test "HCGTU"(Test #550.83029) [id number] 20:17:00* Test Item Value Reference Range Interpretation Comments TROPONIN-I (test code = TROPI) <0.015 ng/mL 0-0.045 N BASIC METABOLIC [id number] 20:08:00* Test Item Value Reference Range Interpretation Comments SODIUM (test code = NA) 135 mmol/L 136-145 L POTASSIUM (test code = K) 4.3 mmol/L 3.5-5.1 N CHLORIDE (test code = CL) 100.0 mmol/L 98-107 N CARBON DIOXIDE (test code = CO2) mmol/L 21-32 ANION GAP (test code = GAP) 10-20 GLUCOSE (test code = GLU) mg/dL 74-106 BLOOD UREA NITROGEN (test code = BUN) mg/dL 7-18 GLOMERULAR FILTRATION RATE (test code = GFR) mL/min >=60 CREATININE (test code = CREAT) mg/dL 0.55-1.02 BUN/CREATININE RATIO (test code = BUN/CREA) 10-20 CALCIUM (test code = CA) mg/dL 8.5-10.1 HCG SERUM [id number] 20:08:00* Test Item Value Reference Range Interpretation Comments HCG SERUM QUAL (test code = HCGQL) NEGATIVE NEGATIVE This HCGQL test is NOT applicable for MALE patients.Check with nurse about probable order error.If Tumor Marker Test needed, nurse should order test "HCGTU"(Test #550.28941) [id number] 20:08:00* Test Item Value Reference Range Interpretation Comments TROPONIN-I (test code = TROPI) ng/mL 0-0.045 BASIC METABOLIC [id number] 20:07:00* Test Item Value Reference Range Interpretation Comments SODIUM (test code = NA) 135 mmol/L 136-145 L POTASSIUM (test code = K) 4.3 mmol/L 3.5-5.1 N CHLORIDE (test code = CL) 100.0 mmol/L 98-107 N CARBON DIOXIDE (test code = CO2) mmol/L 21-32 ANION GAP (test code = GAP) 10-20 GLUCOSE (test code = GLU) mg/dL 74-106 BLOOD UREA NITROGEN (test code = BUN) mg/dL 7-18 GLOMERULAR FILTRATION RATE (test code = GFR) mL/min >=60 CREATININE (test code = CREAT) mg/dL 0.55-1.02 BUN/CREATININE RATIO (test code = BUN/CREA) 10-20 CALCIUM (test code = CA) mg/dL 8.5-10.1 HCG SERUM [id number] 20:07:00* Test Item Value Reference Range Interpretation Comments HCG SERUM QUAL (test code = HCGQL) NEGATIVE [id number] 20:07:00* Test Item Value Reference Range Interpretation Comments TROPONIN-I (test code = TROPI) ng/mL 0-0.045 [id number] 20:02:00* Test Item Value Reference Range Interpretation Comments D-DIMER (test code = DDIMER) 204.00 ng/mLFEU 0-500 N Clinical Cut-off value for D-Dimer is 500 ng/mL FEU. Comment: The [employer] D-Dimer assay is intended for use asan aid in the diagnosis of venous thromboembolism (VTE)[deep vein thrombosis (DVT) or pulmonary embolism (PE)].The measurement of D-Dimer should not be used as an aid inthe diagnosis of VTE, in patient with: -Therapeutic dose anticoagulant therapy for >24 hours -Fibrinolytic therapy within previous 7 days -Trauma or surgery within previous 4 weeks -Disseminated malignancies -Aortic aneurysm -Sepsis, severe infections, pneumonia, severe skin infections -Liver cirrhosis - CBC W/O [id number] 19:56:00* Test Item Value Reference Range Interpretation Comments WHITE BLOOD CELL (test code = WBC) 9.1 K/mm3 4.5-12.5 N RED BLOOD CELL (test code = RBC) 4.31 mill/mm3 3.7-5.2 N HEMOGLOBIN (test code = HGB) 13.6 gram/dL 11.5-15.5 N HEMATOCRIT (test code = HCT) 39.9 % 36.0-46.0 N MEAN CELL VOLUME (test code = MCV) 92.6 fL 80-98 N MEAN CELL HGB (test code = MCH) 31.6 picogram 27.0-33.0 N MEAN CELL HGB CONCETRATION (test code = MCHC) 34.1 gram/dL 33.0-36. 0 N RED CELL DISTRIBUTION WIDTH (test code = RDW) 11.9 % 11.6-16. 2 N PLATELET COUNT (test code = PLT) 334 K/mm3 150-450 N MEAN PLATELET VOLUME (test code = MPV) 9.3 fL 6.7-11.0 N - XR CHEST 1 [id number] 19:51:00 FAX: Moshe Stephenson [phone] Banks: St: REG Name: JUAN ALBERTO NEVES [facility] : [birth year] Age/S: 38/F [address] Unit #: [id number] Loc: [place] [address] Phys: Moshe Stephenson MD Acct: [id number] Dis Date: Status: REG ER PHONE #: [phone] Exam Date: 08/04/20191943 FAX #: [phone] Reason: CHEST PAIN EXAMS: CPT CODE: [id number] XR CHEST 1 V 12319 REASON FOR EXAM: CHEST PAIN EXAM ORDER DATE: 08/04/2019 7:15 PM Ordering: Moshe Stephenson MD Attending:Moshe Stephenson MD Location: PROCEDURE: - XR CHEST 1 V COMPARISON: FINDINGS: Portable AP frontal view of the chest obtained at 7:44 PM shows clear lungs without evidence of consolidation. There is no evidence of effusion. The heart size is within normal limits. Pulmonary vasculatures are unrem arkable. IMPRESSION: No active disease. Electronica lly Signed by Arleth Palomino on 08/04/2019 at 1950 Reporte d and signed by: Sergio Palomino M.D. CC: Moshe Stephenson MD Technologist: LUCERO ABRAHAM Trnscrd Date/Time/By: 08/04/2019 (1950) : By: Acacia Orig Print D/T: S: 08/04/2019 (1954) PAGE 1 Signed Report GLUCOSE BEDSIDE TESTING 2019-03-30 11:34:00* Test Item Value Reference Range Interpretation Comments GLUCOSE BEDSIDE TESTING (test code = GLUBED) 46 mg/dL 70-110 L TROPONIN I [id number] 10:49:00* Test Item Value Reference Range Interpretation Comments TROPONIN I RAPID (test code = TROPIRAP) 0.00 ng/mL 0.00-0.08 N - The use of serial sampling and testing protocol is a recommended practice- An elevated troponin level alone is often not sufficient for diagnosis of myocardial infarction. COMPREHENSIVE METABOLIC [id number] 08:44:00* Test Item Value Reference Range Interpretation Comments SODIUM (test code = NA) 141 mmol/L 134-147 N POTASSIUM (test code = K) 3.5 mmol/L 3.4-5.0 N CHLORIDE (test code = CL) 107 mmol/L 100-108 N CARBON DIOXIDE (test code = CO2) 29 mmol/L 21-32 N ANION GAP (test code = GAP) 5.0 GAP calc 4.0-15.0 N GLUCOSE (test code = GLU) 98 MG/DL 70-110 N BLOOD UREA NITROGEN (test code = BUN) 23 MG/DL 7-18 H GLOMERULAR FILTRATION RATE (test code = GFR) >=60 max estimate estG FR >60 CREATININE (test code = CREAT) 0.7 MG/DL 0.6-1.0 N TOTAL PROTEIN (test code = PROT) 7.3 G/DL 6.4-8.2 N ALBUMIN (test code = ALB) 3.6 G/DL 3.4-5.0 N GLOBULIN (test code = GLOB) 3.7 GM/dL ALBUMIN/GLOBULIN RATIO (test code = A/G) 1.0 RATIO 1.2-2.2 L CALCIUM (test code = CA) 9.0 MG/DL 8.5-10.1 N BILIRUBIN TOTAL (test code = BILT) 0.40 MG/DL 0.2-1.2 N SGOT/AST (test code = AST) 11 Unit/L 15-37 L SGPT/ALT (test code = ALT) 19 Unit/L 12-78 N ALKALINE PHOSPHATASE TOTAL (test code = ALKP) 70 Unit/L 45-117 N Completed by Nursing: [id number] 08:44:00* Test Item Value Reference Range Interpretation Comments MAGNESIUM (test code = MAG) 1.8 MG/DL 1.8-2.4 N Completed by Nursing: NONT PRO-BRAIN NATRIURETIC [id number] 08:44:00* Test Item Value Reference Range Interpretation Comments NT PRO-BRAIN NATRIURETIC PEPTI (test code = PROBNP) 92 PG/ML 0- 100 N Completed by Nursing: [id number] 08:44:00* Test Item Value Reference Range Interpretation Comments TROPONIN-I (test code = TROPI) < 0.015 NG/ML 0.000-0.045 N Negative: </= 0.045 Positive: >/= 0.046 Correlation with serial results, other cardiac markers, and clinical findings is necessary to determine the clinical significance of this result. Quantitative results using different methodologies should not be compared to one another as numerical results may varyby method. Completed by Nursing: NO- XR CHEST 1 [id number] 08:37:00 Name: JUAN ALBERTO DUONG [place] : 1980 Age/S: 38 / F [address] [facility] [place] Unit #: [id number] Loc: [place] [address] Phys: Norah Carson MD Acct: [id number] Dis Date: Status: PRE ER PHONE #: [phone] Exam Date: 03/30/2019 0830 FAX #: Reason: chest pain EXAMS: CPT: [id number] XR CHEST 1 V 22259 Fluoro Time: DAP (Gy m2): Air Kerma (mGy): HISTORY: chest pain Location code: B2 FINDINGS: Frontal view of the chest demonstrates normal cardiomediastinal silhouette. The trachea is midline. The lungs are clear. There is no effusion or pneumothorax. The bones are intact. IMPRESSION: No acute pulmonary process. at 0837 Reported and signed by: Ender Churchill M.D. CC: Norah Carson MD PAGE 1 Signed Report Name: JUAN ALBERTO DUONG [place] : 1980 Age/S: 38 / F [address] [facility] [place] Unit #: [id number] Loc: [place], [place] [address] Phys: Norah Carson MD Acct: [id number] Dis Date: Status: PRE ER PHONE #: [phone] Exam Date: 03/30/2019 0830 FAX #: Reason: chest pain EXAMS: CPT: [id number] XR CHEST 1 V 44044 Fluoro Time: DAP (Gy m2): Air Kerma (mGy): < Continued> Technologist: Keyona Joshi, RT(R); Dulce Gibbons, RT(R)(CT) Trnscb Date/Time: 03/30/2019 (0837) HienRK5 Orig Print D/T: S: 03/30/2019 (4535) PAGE 2 Signed Report CBC W/AUTO DIFF 2019-03-30 08:26:00* Test Item Value Reference Range Interpretation Comments WHITE BLOOD CELL (test code = WBC) 8.4 K/mm3 3.5-11.0 N RED BLOOD CELL (test code = RBC) 4.35 M/mm3 4.70-6.10 L HEMOGLOBIN (test code = HGB) 13.7 G/DL 10.4-14.9 N HEMATOCRIT (test code = HCT) 40.4 % 31.5-44.1 N MEAN CELL VOLUME (test code = MCV) 92.9 Fl 84.5-98.6 N MEAN CELL HGB (test code = MCH) 31.5 pg 27.0-34.2 N MEAN CELL HGB CONCETRATION (test code = MCHC) 33.9 G/DL 31.5-34. 0 N RED CELL DISTRIBUTION WIDTH (test code = RDW) 12.8 SD 11.5-14. 5 N PLATELET COUNT (test code = PLT) 341.0 K/mm3 150-450 N MEAN PLATELET VOLUME (test code = MPV) 9.00 fL 7.0-10.5 N NEUTROPHIL % (test code = NT%) 58.4 % 40-76 N LYMPHOCYTE % (test code = LY%) 31.8 % 20.5-51.1 N MONOCYTE % (test code = MO%) 7.4 % 1.7-9.3 N EOSINOPHIL % (test code = EO%) 2.3 % 0.0-6.0 N BASOPHIL % (test code = BA%) 0.1 % 0.0-2.0 N NEUTROPHIL # (test code = NT#) 4.93 K/mm3 1.8-7.6 N LYMPHOCYTE # (test code = LY#) 2.7 K/mm3 0.6-3.2 N MONOCYTE # (test code = MO#) 0.6 K/mm3 0.3-1.1 N EOSINOPHIL # (test code = EO#) 0.2 K/mm3 0.0-0.4 N BASOPHIL # (test code = BA#) 0.0 K/mm3 0.0-0.1 N MANUAL DIFF REQUIRED (test code = MDIFF) NO DIFF/SCN CRITERIA ANKLE 3 VIEW RT - [id number] 18:21:[address] [place] [address] Patient Name: JUAN ALBERTO DUONG MR #: [id number] : 1980 Age/Sex: 38/F Req #: [id number] Adm Physician: Ordered by: LILIANA KULKARNI MD Report #: [id number] Location: [facility] Room/Bed: Procedure: HOPD/ANKLE 3 VIEW RT - HOPD Exam Date: 01/13/19 Exam Time: 1755 REPORT STATUS: Signed ANKLE 3 VIEW RT - HOPD - 3 views HISTORY: Pain COMPARISON: Non e available. FINDINGS: Bones: No acute displaced fracture. Oss eous alignment is within normal limits. Joints: The joint spaces are well -maintained. Soft tissues: The soft tissues appear unremarkable. IMPRESSION: No acute fracture or dislocation of the right ankle. Signed by: Dr. Mack Echavarria MD on 01/13/2019 6:22 PM Dictated By: MACK ECHAVARRIA MD 21 Transcribed By: SALONI on 01/13/191821 COPY TO: LILIANA KULKARNI MD FOOT 2VIEW RT - [id number] 18:15:00 [facility] [place] [address] Patient Name: JUAN ALBERTO DUONG MR #: [id number] : 1980 Age/Sex: 38/F Req #: [id number] Adm Physician: Ordered by: LILIANA KULKARNI MD Report #: [id number] Location: [facility] Room/Bed: Procedure: HOPD/FOOT 2VIEW RT - HOPD Exam Date: 01/13/19 Exam Time: 1740 REPORT STATUS: Si gned FOOT 2VIEW RT - HOPD - 2 views HISTORY: Pain COMPARISON: None av ailable. FINDINGS: Bones: No acute displaced fracture. Osseous alignment is within normal limits. Joints: No malalignment. Soft ti ssues: The soft tissues appear unremarkable. IMPRESSION: No acute r adiographic abnormality. Signed by: Dr. Mack Echavarria MD on 01/13/2019 6:16 PM Dictated By: MACK ECHAVARRIA MD 15 Transcribed By: SALONI on 01/13/191815 COPY TO: LILIANA KULKARNI MD Stress Test - Treadmill [id number] 09:46:00 [place] [address] Patient Name : JUAN ALBERTO DUONG MR #: [id number] : 1980 Age/Sex: 37/F Adm Physi cadence : JUNIOR QUINONEZ MD Admit Date : 02/22/18 Location : [facility] Room/Bed : [facility] 179-1 REPORT: Cardiology Repor t DATE OF STUDY: February 23, 2018 EXERCISE TREADMILL STRESS TEST INDICATIONS FOR STUDY: A 37-year-old lady with history of type 1 diabetes and 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 DESCRIPTION OF PROCEDURE: After risks, benefits, pros, and cons of the exercise treadmill stress test explained, the patient agreed to procee d. The patient was brought down to the stress lab where a 12-lead EKG mon itoring and blood pressure monitoring was obtained. She exercised on a Guzman protocol exercising for a total duration of 6 minutes and 48 seconds going f rom a baseline heart rate of 78 to a maximum of about 120 beats per minute sh y of target heart rate of 155 beats per minute. Blood pressure went from a b aseline of 141/89 to a maximum of 204/93, which is an appropriate blood press ure response. She exercised for a total duration of 7 mets, and underlying E KG revealed normal sinus rhythm, LVH type changes and nonspecific T-wave inve rsions in 2, 3 and aVF, as well as V5 and V6 that showed no change with exerc ise. Her test was stopped on account of legs fatigued, and her heart rate mi ght have been attenuated slightly from underlying beta blockade on board. Wi th the exercise, the patient started off with low level 3-4 chest pain that w as constant. With exercise, there was no change in the quality of her chest pain symptoms. The patient did not show signs of exertional shortness of mariah ath or fatigue. CONCLUSIONS 1. Overall, this is a negative submaximal exercise treadmill stress testing. 2. No change in quality of her chest p ain with exercise. 3. Limitations of the interpretation of the study succe ssfully explained to the patient. It was agreeable to wanting medical therap y at this time with strongly negative prior cardiac biomarkers. D Job#: [id number] RI Sig nature Date Dictated By: ERMA MCGRATH MD Transcribed By: SMEDS on 02/23/18 <Electronically signed by ERMA MCGRATH MD><<Signature on File>> 02/24/18 1047 COPY TO: Bedside Ltypoic3212-08-18 08:11:00* Test Item Value Reference Range Interpretation Comments Bedside Glucose (test code = 59019-8) 80 70-120 Meter ID: [id number] Scott & White [facility] Center – UptownThyroid Stimulating Hormone (TSH)2018-02-23 07:56:00* Test Item Value Reference Range Interpretation Comments Thyroid Stimulating Hormone (TSH) (test code = 33327-4) 1.477 0.350-4.940 [facility] UptownCreatine Kinase [id number] 07:12:00* Test Item Value Reference Range Interpretation Comments Creatine Kinase MB (test code = 96373-1) 0.80 0-5.0 [facility] UptownTroponin [id number] 07:12:00* Test Item Value Reference Range Interpretation Comments Troponin I (test code = LWD1058) 0.001 0-0.300 [facility] UptownCreatine [id number] 07:05:00* Test Item Value Reference Range Interpretation Comments Creatine Kinase (test code = 2157-6) 77 29-168 [facility]odium Lvsci2296-73-31 06:49:00* Test Item Value Reference Range Interpretation Comments Sodium Level (test code = 2951-2) 138 136-145 [facility] UptownPotassium [id number] 06:49:00* Test Item Value Reference Range Interpretation Comments Potassium Level (test code = 2823-3) 3.9 3.5-5.1 [facility] UptownChloride Slymz7822-27-49 06:49:00* Test Item Value Reference Range Interpretation Comments Chloride Level (test code = 2075-0) 106 98-107 [facility] UptownCarbon Dioxide [id number] 06:49:00* Test Item Value Reference Range Interpretation Comments Carbon Dioxide Level (test code = 2028-9) 25 22-29 [facility] UptownAnion [id number] 06:49:00* Test Item Value Reference Range Interpretation Comments Anion Gap (test code = 00113-0) 10.9 8-16 [facility] UptownBlood Urea Wtwcnxjq7983-03-34 06:49:00* Test Item Value Reference Range Interpretation Comments Blood Urea Nitrogen (test code = 3094-0) 17 7-26 [facility] UptownCreatinine2018-08-14 06:49:00* Test Item Value Reference Range Interpretation Comments Creatinine (test code = 2160-0) 0.66 0.57-1.11 [facility] UptownBUN/Creatinine Occcn7878-48-32 06:49:00* Test Item Value Reference Range Interpretation Comments BUN/Creatinine Ratio (test code = 3097-3) 26 6-25 H [facility] UptownEstimat Glomerular Filtration Rate 2018-02-23 06:49:00* Test Item Value Reference Range Interpretation Comments Estimat Glomerular Filtration Rate (test code = 25142-9) 60- >60 Ranges were taken from the National Kidney Disease Education Program and the [facility] Kidney Foundation literature.Reference ranges:60 or greater: Borcto40-17 ( for 3 consecutive months): Chronic kidney disease 15 or less: Kidney failureBaylor Scott & White Medical Center – UptownGlucose Entru4109-91-40 06:49:00* Test Item Value Reference Range Interpretation Comments Glucose Level (test code = IDY3010) 120 74-118 H [facility] UptownCalcium Srvis2162-50-94 06:49:00* Test Item Value Reference Range Interpretation Comments Calcium Level (test code = 11100-1) 8.9 8.4-10.2 [facility] UptownTriglycerides Ygxja1493-07-37 06:49:00* Test Item Value Reference Range Interpretation Comments Triglycerides Level (test code = 2571-8) 102 0-149 [facility] UptownCholesterol Ahney3660-66-25 06:49:00* Test Item Value Reference Range Interpretation Comments Cholesterol Level (test code = 2093-3) 203 0-199 H Less than 200 mg/dL Low Sivp698 - 239 mg/dL Borderline Ugfo727 m g/dl and greater High Risk [facility] – UptownLDL Dieazehkanr5997-71-84 06:49:00* Test Item Value Reference Range Interpretation Comments LDL Cholesterol (test code = 2089-1) 90 60-130 [facility] UptownHDL Igfthebfvva4445-76-45 06:49:00* Test Item Value Reference Range Interpretation Comments HDL Cholesterol (test code = 2085-9) 93 40-60 H [facility] UptownCholesterol/HDL Krafm5463-16-95 06:49:00 * Test Item Value Reference Range Interpretation Comments Cholesterol/HDL Ratio (test code = 9830-1) 2.2 3.0-3.6 L [facility] UptownProthrombin Plat8918-14-34 06:40:00* Test Item Value Reference Range Interpretation Comments Prothrombin Time (test code = 5902-2) 11.6 11.9-14.5 L [facility] UptownProthromb Time International Ratio 2018-02-23 06:40:00* Test Item Value Reference Range Interpretation Comments Prothromb Time International Ratio (test code = 6301-6) 0.92 Oral Anticoagulant Therapy INR Values:1. Low Intensity Therapy 1.5 - 2.02 . Moderate Intensity Therapy 2.0 - 3.03. High Intensity Therapy(1) 2.5 - 3. 54. High Intensity Therapy(2) 3.0 - 4.05. Panic Value INR > 5.0 [facility] UptownHemoglobin A1c Cqmqtxo7976-74-97 06:24:00 * Test Item Value Reference Range Interpretation Comments Hemoglobin A1c Percent (test code = Hemoglobin A1c Percent) 12.8 4.0-7.0 H [facility] [place]ownWhite Blood [id number] 06:14:00* Test Item Value Reference Range Interpretation Comments White Blood Count (test code = 6690-2) 8.75 4.8-10.8 [facility]ownRed Blood Ntghb4751-54-17 06:14:00* Test Item Value Reference Range Interpretation Comments Red Blood Count (test code = 789-8) 3.48 3.6-5.1 L [facility] UptownHemoglobin2018-08-14 06:14:00* Test Item Value Reference Range Interpretation Comments Hemoglobin (test code = 79446-0) 11.1 12.0-16.0 L [facility] UptownHematocrit2018-08-14 06:14:00* Test Item Value Reference Range Interpretation Comments Hematocrit (test code = 4544-3) 33.7 34.2-44.1 L [facility] UptownMean Corpuscular Zkcfoz9948-52-81 06:14:00* Test Item Value Reference Range Interpretation Comments Mean Corpuscular Volume (test code = 787-2) 96.8 81-99 [facility]ownMean Corpuscular Ohdopqcjmd0297-39-82 06:14:00* Test Item Value Reference Range Interpretation Comments Mean Corpuscular Hemoglobin (test code = 785-6) 31.9 28-32 [facility]ownMean Corpuscular Hemoglobin Concent 2018-02-23 06:14:00* Test Item Value Reference Range Interpretation Comments Mean Corpuscular Hemoglobin Concent (test code = 786-4) 32.9 31-35 [facility]ownRed Cell Distribution Apmwt4549-31-52 06:14:00* Test Item Value Reference Range Interpretation Comments Red Cell Distribution Width (test code = 95758-2) 12.7 11.7 -14.4 [facility] UptownPlatelet Hwjdi8950-11-39 06:14:00* Test Item Value Reference Range Interpretation Comments Platelet Count (test code = 777-3) 327 140-360 [facility] UptownNeutrophils (%) (Auto)2018-02-23 06:14:00 * Test Item Value Reference Range Interpretation Comments Neutrophils (%) (Auto) (test code = 06889-2) 52.4 38.7-80.0 [facility] UptownLymphocytes (%) (Auto)2018-02-23 06:14:00 * Test Item Value Reference Range Interpretation Comments Lymphocytes (%) (Auto) (test code = 736-9) 33.4 18.0-39.1 [facility]ptownMonocytes (%) (Auto)2018-02-23 06:14:00* Test Item Value Reference Range Interpretation Comments Monocytes (%) (Auto) (test code = 5905-5) 9.5 4.4-11.3 [facility]ownEosinophils (%) (Auto)2018-02-23 06:14:00 * Test Item Value Reference Range Interpretation Comments Eosinophils (%) (Auto) (test code = 713-8) 4.2 0.0-6.0 [facility]ownBasophils (%) (Auto)2018-02-23 06:14:00* Test Item Value Reference Range Interpretation Comments Basophils (%) (Auto) (test code = 706-2) 0.3 0.0-1.0 [facility] UptownIM GRANULOCYTES %2018-02-23 06:14:00* Test Item Value Reference Range Interpretation Comments IM GRANULOCYTES % (test code = IM GRANULOCYTES %) 0.2 0.0- 1.0 [facility]ptownNeutrophils # (Auto)2018-02-23 06:14:00* Test Item Value Reference Range Interpretation Comments Neutrophils # (Auto) (test code = 751-8) 4.6 2.1-6.9 [facility] UptownLymphocytes # (Auto)2018-02-23 06:14:00* Test Item Value Reference Range Interpretation Comments Lymphocytes # (Auto) (test code = 90693-8) 2.9 1.0-3.2 [facility]ptownMonocytes # (Auto)2018-02-23 06:14:00* Test Item Value Reference Range Interpretation Comments Monocytes # (Auto) (test code = 742-7) 0.8 0.2-0.8 [facility]ownEosinophils # (Auto)2018-02-23 06:14:00* Test Item Value Reference Range Interpretation Comments Eosinophils # (Auto) (test code = 711-2) 0.4 0.0-0.4 [facility]ownBasophils # (Auto)2018-02-23 06:14:00* Test Item Value Reference Range Interpretation Comments Basophils # (Auto) (test code = 704-7) 0.0 0.0-0.1 [facility] UptownAbsolute Immature Granulocyte (auto 2018-02-23 06:14:00* Test Item Value Reference Range Interpretation Comments Absolute Immature Granulocyte (auto (fernando t code = Absolute Immature Granulocyte (auto) 0.02 0-0.1 [facility] UptownCHEST SINGLE (PORTABLE)2018-02-23 06:14:00 [facility] [address] [place] [address] Patient Name: JUAN ALBERTO DUONG MR #: [id number] : 1980 Age/Sex: 37/F Req #: [id number] Adm Physician: JUNIOR QUINONEZ MD Ordered by: MARGARET DIAZ CHANNEL DEVELOPMENT MANAGER Report #: [id number] Location: [facility] Room/Bed: [place] [address] Procedure: [id number] DX/CHEST SINGLE (PORTABLE) Exam Date: 02/23/18 Exa m Time: 0425 REPORT STATUS: Signed EXAMINATION: CHEST SINGLE (PORTABLE ) INDICATION: Chest pain. COMPARISON: CT of the chest on 02/22/2018 FINDINGS: TUBES and LINES: None. LUNGS: Lungs ar e well inflated. Lungs are clear. There is no evidence of pneumonia or pulm onary edema. PLEURA: No pleural effusion or pneumothorax. HEART AND M EDIASTINUM: The cardiomediastinal silhouette is unremarkable. BONES AN D SOFT TISSUES: No acute osseous lesion. Soft tissues are unremarkable. UPPER ABDOMEN: No free air under the diaphragm. IMPRESSION: No acute thoracic abnormality. Signed by: Dr. Marco Cash M.D. on 02/23/2018 6:15 AM Dictated By: MARCO VOSS MD 4 Transcribed By: SALONI on 02/23/18614 COPY TO: MARGARET DIAZ NP CT CHEST [id number] 22:04:00 [place] [address] Patient Name: JUAN ALBERTO DUONG MR #: [id number] : 0 1980 Age/Sex: 37/F Req #: [id number] Adm Physician: JUNIOR QUINONEZ MD Ordered by: ERMA MCGRATH MD Report #: [id number] Loca tion: [facility] Room/Bed: [place] [address] Procedure: [id number] CT/CT CHEST W Exam Date: 02/22/18 Exam Time: 2122 REPORT STATUS: Signed EXAM: CT Chest WITH contrast 02/22/2018 8:32 PM IN DICATION: Chest pain COMPARISON: None TECHNIQUE: Chest was scanned utiliz ing a multidetector helical scanner from the lung apex through the level of th e adrenal glands without administration of IV contrast. Coronal and sagittal r eformations were obtained. PE protocol was performed. IV CONTRAST: 65 mL of Isovue-370 RADIATION DOSE: Total DLP: 400.91 mGy*cm Estimated effective dose: (DLP x 0.014 x size factor) mSv C OMPLICATIONS: None FINDINGS: LINES/ TUBES: None. LUNGS AND AIRWAY S: The lungs are unremarkable. Airways are normal. PLEURA: The pleural sp aces are clear. HEART AND MEDIASTINUM: The thyroid gland is normal. No med iastinal, hilar or axillary lymphadenopathy. The heart is normal in size.. Th ere is no pericardial effusion. There are mild atherosclerotic calcifications in the aorta and coronary arteries. Left coronary stent along the circumflex artery. UPPER ABDOMEN: 4 mm stone in the upper moiety of the left renal col lecting system. BONES: The visualized bony thorax is within normal limits . SOFT TISSUES: Unremarkable. IMPRESSION: 1. No evidence of acute intrathoracic abnormality. No evidence of pulmonary embolism. 2. There is a 4 mm stone in the upper moiety of the left renal collecting system. S igned by: Dr. Marco Cash M.D. on 02/22/2018 10:16 PM Dictated By: MARCO VOSS MD 15 Transcribed By: SALONI on 02/22/182215 COPY TO: ERMA MCGRATH MD Total Cbhzhwuhv4063-04-36 21:17:00* Test Item Value Reference Range Interpretation Comments Total Bilirubin (test code = 1975-2) 0.6 0.2-1.2 [facility] UptownAspartate Amino Transf (AST/SGOT) 2018-02-22 21:17:00* Test Item Value Reference Range Interpretation Comments Aspartate Amino Transf (AST/SGOT) (test code = Aspartate Amino Transf (AST/SGOT)) 21 5-34 [facility] UptownAlanine Aminotransferase (ALT/SGPT) 2018-02-22 21:17:00* Test Item Value Reference Range Interpretation Comments Alanine Aminotransferase (ALT/SGPT) (test code = 1742-6) 23 0-55 [facility] UptownTotal Qlkeavt9911-66-90 21:17:00* Test Item Value Reference Range Interpretation Comments Total Protein (test code = 2885-2) 6.1 6.5-8.1 L [facility] UptownAlbumin2018-08-13 21:17:00* Test Item Value Reference Range Interpretation Comments Albumin (test code = 1751-7) 3.2 3.5-5.0 L [facility] UptownGlobulin2018-08-13 21:17:00* Test Item Value Reference Range Interpretation Comments Globulin (test code = 43525-5) 2.9 2.3-3.5 [facility] UptownAlbumin/Globulin Xryka3083-64-19 21:17:00 * Test Item Value Reference Range Interpretation Comments Albumin/Globulin Ratio (test code = 1759-0) 1.1 0.8-2.0 [facility] UptownAlkaline Lppwnzvrffi1497-76-25 21:17:00* Test Item Value Reference Range Interpretation Comments Alkaline Phosphatase (test code = 6768-6) 52 40-150 [facility] UptownCHEST SINGLE (PORTABLE)2018-02-22 17:42:00 [facility] [address] [place] [address] Patient Name: JUAN ALBERTO DUONG MR #: [id number] : 1980 Age/Sex: 37/F Req #: [id number] Adm Physician: Ordered by: BRO VELASQUEZ MD Report #: [id number] Location: ER Room/Bed: Procedure: [id number] DX/CHEST SINGLE (PORTABLE) Exam Date: 02/22/18 Exam Time: 1520 REPORT STATUS: Signed PROCEDURE: A single AP view of the chest. COMPARISON: None. INDICATIONS: CHEST PAIN SINCE YESTERDAY FINDINGS: Lines/tubes: None. Lungs: The lungs are well inflated and clear. There is no evidence of pneumonia or pulmonary edema. Pleura: There is no pleural effusion or pneumothorax. Heart and mediastinum: The heart and the mediastinum are unremarkable. Bones: No acute bony abnormality. IMPRESSION: 1. No acute cardiopulmonary disease. Dictated by: aMck Echavarria M.D. on 02/22/2018 at 17:42 Electronically approved by: Mack Echavarria M.D. on 02/22/2018 at 17:42 Dictated By: MACK ECHAVARRIA MD Electronic ally Signed By: MACK ECHAVARRIA MD on 02/22/181741 Transcribed By: RICHARD on 02/10 COPY TO: BRO VELASQUEZ MD B-Type Natriuretic Peptide 2018-02-22 16:32:00* Test Item Value Reference Range Interpretation Comments B-Type Natriuretic Peptide (test code = 27411-9) 67.5 0-100 [facility] UptownUrine [id number] 16:17:00* Test Item Value Reference Range Interpretation Comments Urine WBC (test code = 5821-4) 0-5 0-5 [facility] UptownUrine [id number] 16:17:00* Test Item Value Reference Range Interpretation Comments Urine RBC (test code = 09712-7) 0-5 0-5 [facility] UptownUrine Okjjvaol1456-23-60 16:17:00* Test Item Value Reference Range Interpretation Comments Urine Bacteria (test code = 51496-7) NONE NONE [facility] UptownUrine Epithelial Gfvcn3901-75-10 16:17:00 * Test Item Value Reference Range Interpretation Comments Urine Epithelial Cells (test code = 64267-8) FEW NONE [facility] UptownUrine Dzipx2302-51-70 16:17:00* Test Item Value Reference Range Interpretation Comments Urine Mucus (test code = 8247-9) FEW RARE H [facility] UptownActivated Partial Thromboplast Time 2018-02-22 16:15:00* Test Item Value Reference Range Interpretation Comments Activated Partial Thromboplast Time (test code = 50684-0) 23.6 23.8-35.5 L [facility] UptownUrine Esnoy3506-74-34 16:13:00* Test Item Value Reference Range Interpretation Comments Urine Color (test code = 5778-6) YELLOW YELLOW [facility] UptownUrine Wmfefun5902-05-01 16:13:00* Test Item Value Reference Range Interpretation Comments Urine Clarity (test code = 61706-8) CLEAR CLEAR [facility] UptownUrine Specific Wsuzroo4431-00-63 16:13:00 * Test Item Value Reference Range Interpretation Comments Urine Specific [place] (test code = 5811-5) 1.010 1.010-1.02 5 [facility] UptownUrine hP5001-29-08 16:13:00* Test Item Value Reference Range Interpretation Comments Urine pH (test code = 73318-7) 7 5-7 [facility] Leukocyte Zynrzcmf9192-36-52 16:13:00* Test Item Value Reference Range Interpretation Comments Urine Leukocyte Esterase (test code = 5799-2) NEGATIVE NEGATIVE [facility] Cebdocb1970-38-41 16:13:00* Test Item Value Reference Range Interpretation Comments Urine Nitrite (test code = 02474-1) NEGATIVE NEGATIVE [facility] Pbptxot1581-97-87 16:13:00* Test Item Value Reference Range Interpretation Comments Urine Protein (test code = 5804-0) NEGATIVE NEGATIVE [facility] Glucose (UA)2018-02-22 16:13:00* Test Item Value Reference Range Interpretation Comments Urine Glucose (UA) (test code = 2349-9) 3+ NEGATIVE H [facility] Qnlxggb1067-92-58 16:13:00* Test Item Value Reference Range Interpretation Comments Urine Ketones (test code = 10590-7) NEGATIVE NEGATIVE [facility] Fjumtgzrdgxs9186-91-93 16:13:00* Test Item Value Reference Range Interpretation Comments Urine Urobilinogen (test code = 64677-9) 0.2 0.2-1 [facility] Mesvircnx1126-66-51 16:13:00* Test Item Value Reference Range Interpretation Comments Urine Bilirubin (test code = 1978-6) NEGATIVE NEGATIVE [facility] Tsupv5747-34-10 16:13:00* Test Item Value Reference Range Interpretation Comments Urine Blood (test code = 76106-3) NEGATIVE NEGATIVE [facility] [place]
--- OUTSIDE RECORDS SUMMARY | 2020-05-17 18:31 | XMS REPORT | Clinical Summary ---
Author Author Lane Religion Organization [facility] [employer] Address Unknown Phone Unavailable Care Team Providers Care Ingot Buggy Operator Name Role Phone Asked, No Pcp PCP Unavailable Allergies No Known Active Allergies Medications End Date Status Medication Sig [...] by 0 enteric coated tablet mouth daily. 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
--- OUTSIDE RECORDS SUMMARY | 2020-05-17 18:32 | XMS REPORT | Continuity of Care Document ---
Author Author [facility] t Organization [facility] Address [address] [place] [address] Phone Unavailable Care Team Providers Care Child Support Investigator Name Role Phone NO, PCP PCP Unavailable Todd ECKERT Attphys Unavailable CHANO RODRIGUEZ Attphys Unavailable Todd KULKARNIPH Attphys Unavailable Dafne QUINONEZ Attphys Unavailable Todd ECKERT Admphys Unavailable CHANO RODRIGUEZ Admphys Unavailable Dafne QUINONEZ Admphys Unavailable Payers Payer Name Policy Type Policy Number Effective Date Expiration Date S andrewelsie Umr Ppo NA 2019 00:00:00 [facility] [id number] [facility] Self Pay NA [facility] Problems Condition Name Condition Details Condition Category Status Onset Date Resolution Date Last Treatment Date Treating Clinician Comments Source Unstable angina pectoris Problem Active [facility] Hyperglycemia Problem Active [facility] Dehydration Problem Active [facility] Allergies, Adverse Reactions, Alerts Allergy Name Allergy Type Status Severity Reaction(s) Onset Date Inacti ve Date Treating Clinician Comments Source No Known Allergies DA Active U 2019-08-04 00:00:00 [facility] No Known Allergies DA Active U 2019-03-30 00:00:00 [facility] No Known Drug Allergies DA Active U 2001-04-27 00:00:00 [facility] Social History Social Habit Start Date Stop Date Quantity Comments Source History of tobacco use Cigarette Smoker [facility] History SDOH Alcohol Std Drinks [facility] History SDOH Alcohol Binge [facility] Sex Assigned At [facility] Cigarettes smoked current (pack per day) - Reported 00:00:00 2019-03-27 00:00:00 [facility] Tobacco use and exposure 2019-03-27 00:00:00 2019-03-27 00:00:00 Ramy hudson used [facility] Alcohol intake 2019-03-27 00:00:00 2019-03-27 00:00:00 Lifetime non-drinker (finding) [facility] History SDOH Alcohol Frequency 2019-03-27 00:00:00 2019-03-27 00:00:0 0 1 [facility] Smoking Status Start Date Stop Date Source Current every day smoker 2019-03-27 00:00:00 Rod [facility]man[facility] Medications Ordered Medication Name Filled Medication Name Start Date Stop Da te Current Medication? Ordering Clinician Indication Dosage Frequency Signature (SIG) Comments Components Source Aspirin (Aspir 81) 81 Mg TABLET. Aspirin (Aspir 81) 81 Mg TABLET. 2019-11-24 14:21:00 Yes 81 Daily [facility] Clopidogrel Bisulfate (Plavix) 75 Mg TABLET Clopidogre l Bisulfate (Plavix) 75 Mg TABLET 2019-11-24 14:21:00 Yes 75 Daily [facility] Topiramate (Topamax) 25 Mg TABLET Topiramate (Topamax) 25 Mg TABLET 2019-11-24 14:21:00 Yes 200 Twice A Day [facility] Valacyclovir Hcl (Valtrex) 500 Mg TAB Valacyclovir Hcl (Valt jose david) 500 Mg TAB 2019-11-24 14:21:00 Yes 500 Twice A Day [facility] Insulin Regular, Human (Humulin R) 100 Unit/1 Ml VIAL Insulin Regular, Human (Humulin R) 100 Unit/1 Ml VIAL 2019-11-24 14:17:00 Yes 0 [facility] Atorvastatin Atorvastatin 2019-11-24 14:14:00 Yes 80 Daily [facility] Metformin Hcl Metformin Hcl 2019-11-24 14:14:00 Yes 1000 Twice Daily [facility] Metoprolol Succinate (Toprol Xl) 25 Mg TAB.ER.24H Meto prolol Succinate (Toprol Xl) 25 Mg TAB.ER.24H 2019-11-24 14:14:00 Yes 12.5 Martha ly [facility] insulin regular (HumuLIN-R, NovoLIN-R) 100 unit/mL injection [...] TABL ET. 2019-11-24 00:00:00 No 81 Daily [facility] Clopidogrel Bisulfate (Plavix) 75 Mg TABLET Clopidogre l Bisulfate (Plavix) 75 Mg TABLET 2019-11-24 00:00:00 No 75 Daily [facility] Insulin Regular, Human (Humulin R) 100 Unit/1 Ml VIAL Insulin Regular, Human (Humulin R) 100 Unit/1 Ml VIAL 2019-11-24 00:00:00 No 15 Before [facility] Insulin Regular, Human (Humulin R) 100 Unit/1 Ml VIAL Insulin Regular, Human (Humulin R) 100 Unit/1 Ml VIAL 2019-11-24 00:00:00 No 10 Before Supper [facility] Lisinopril Lisinopril 2019-11-24 00:00:00 No 6.25 Twi ce A Day [facility] Nph, Human Insulin Isophane (Novolin N) 100 Unit/1 Ml VIAL Nph, Human Insulin Isophane (Novolin N) 100 Unit/1 Ml VIAL 2019-11-24 00:00:00 No 30 Before [facility] Nph, Human Insulin Isophane (Novolin N) 100 Unit/1 Ml VIAL Nph, Human Insulin Isophane (Novolin N) 100 Unit/1 Ml VIAL 2019-11-24 00:00:00 No 20 Before [facility] Topiramate (Topamax) 25 Mg TABLET Topiramate (Topamax) 25 Mg TAB LET 2019-11-24 00:00:00 No 200 Twice A Day [facility] Valacyclovir Hcl (Valtrex) 500 Mg TAB Valacyclovir Hcl (Valtrex) 500 Mg TAB 2019-11-24 00:00:00 No 500 Twice A Day [facility] Vital Signs Vital Name Observation Time Observation Value Comments Source Body Temperature 2019-11-24 12:45:00 98.5 [degF] [facility] BMI (Body Mass Index) 2019-11-22 09:57:00 22.5 kg/m2 [facility] Weight 2019-11-22 04:28:00 135 [lb_av] [facility] Procedures This patient has no known procedures. Plan of Care Planned Activity Planned Date Details Comments Source Instructions Angina [facility] Encounters Start Date/Time End Date/Time Encounter Type Admission Type [facility] Facility Care Department Encounter ID Source 2019-11-22 05:26:00 2019-11-24 16:25:00 Discharged Inpatient 1 CHANO RODRIGUEZ [facility] [id number] [facility] 2019-01-13 17:16:00 2019-01-13 18:53:00 Departed Emergency Room 1 LILIANA KULKARNI [facility] [id number] [facility] 2018-02-22 19:09:00 2018-02-23 14:39:00 Discharged Inpatient (obs) 1 JUNIOR QUINONEZ [facility] [id number] [facility] Results Test Description Test Time Test Comments Results Result Comments Source CT ABD/PEL WITH CONTRAST-HOPD 2020-05-13 19:30:00 [facility] 1980 Sex: F [place] [address] Patient Name: JUAN ALBERTO DUONG MR #: [id number] : 1980 Age/Sex: 39/F Req #: [id number] [facility] Physician: GARY ECKERT MD Ordered by: BRO VELASQUEZ MD Report #: [id number] Location: [facility] Room/Bed: [place] [address] Procedure: [id number] HOPD/CT ABD/PEL WITH CONTRAST-HOPD Exam Date: Exam [...] ABDOMEN COMPLETE - HOPD 2020-05-13 17:29:00 [facility] 1980 Sex: F [facility] [address] [place] [address] Patient Name: JUAN ALBERTO DUONG MR #: [id number] : 1980 Age/Sex: 39/F [facility] #: [id number] Req #: [id number] Adm Physician: Ordered by: BRO VELASQUEZ MD Report #: [id number] Location: [facility] Room/Bed: Procedure: [id number] HOPD/ABDOMEN COMPLETE - HOPD Exam Date: 05/13/20 [...] Test Item Bedside Glucose (test code = 72515-8) 256 70-120 Meter ID: [id number] HospitalBlood leukocytes automated count (number/volume)2019-11-24 05:10:00* Test Item Value Reference Range Interpretation Comments White Blood Count (test code = 6690-2) 8.31 4.8-10.8 [facility]Bl[facility] erythrocytes automated count (number/volume)2019-11-24 05:10:00* Test Item Value Reference Range Interpretation Comments Red Blood Count (test code = 789-8) 4.02 3.6-5.1 [facility]Blood hemoglobin measurement (moles/volume)2019-11-24 05:10:00* Test Item Value Reference Range Interpretation Comments Hemoglobin (test code = 83955-9) 12.5 12.0-16.0 [facility] HospitalAutomated blood hematocrit (volume fraction)2019-11-24 05:10:00* Test Item Value Reference Range Interpretation Comments Hematocrit (test code = 4544-3) 37.5 34.2-44.1 [facility] HospitalAutomated erythrocyte mean corpuscular gaload3380-63-54 05:10:00* Test Item Value Reference Range Interpretation Comments Mean Corpuscular Volume (test code = 787-2) 93.3 81-99 [facility] HospitalAutom[facility] erythrocyte mean corpuscular hemoglobin (mass per erythrocyte)2019-11-24 05:10:00* Test Item Value Reference Range Interpretation Comments Mean Corpuscular Hemoglobin (test code = 785-6) 31.1 28-32 [facility] HospitalAutomated erythrocyte mean corpuscular hemoglobin concentration measurement (mass/volume)2019-11-24 05:10:00* Test Item Value Reference Range Interpretation Comments Mean Corpuscular Hemoglobin Concent (test code = 786-4) 33.3 31-35 [facility] HospitalRDW JfiYa-Rbh8263-13-14 05:10:00* Test Item Value Reference Range Interpretation Comments Red Cell Distribution Width (test code = 42944-0) 11.9 11.7 -14.4 [facility] HospitalAutom[facility] blood platelet count (count/volume)2019-11-24 05:10:00* Test Item Value Reference Range Interpretation Comments Platelet Count (test code = 777-3) 339 140-360 [facility] HospitalAutomated blood segmented neutrophil count as percentage of total zqyoaenyxq7896-92-75 05:10:00* Test Item Value Reference Range Interpretation Comments Neutrophils (%) (Auto) (test code = 61368-5) 56.4 38.7-80.0 [facility] HospitalAutomated blood lymphocyte count as percentage ot total owdkyhnhrb8282-36-13 05:10:00* Test Item Value Reference Range Interpretation Comments Lymphocytes (%) (Auto) (test code = 736-9) 29.5 18.0-39.1 [facility] HospitalAutomated blood monocyte count as percentage of total jeeotizzxz6055-31-93 05:10:00* Test Item Value Reference Range Interpretation Comments Monocytes (%) (Auto) (test code = 5905-5) 9.9 4.4-11.3 [facility] HospitalAut[facility] blood eosinophil count as percentage of total vianflilvz0946-54-64 05:10:00* Test Item Value Reference Range Interpretation Comments Eosinophils (%) (Auto) (test code = 713-8) 3.6 0.0-6.0 [facility]Aut[facility] basophil count as percentage of total tsxvhvmowu0137-94-29 05:10:00* Test Item Value Reference Range Interpretation Comments Basophils (%) (Auto) (test code = 706-2) 0.5 0.0-1.0 [facility] HospitalFluoroscopic procedure less than one hour pkyxxstf3776-63-32 05:10:00* Test Item Value Reference Range Interpretation Comments IM GRANULOCYTES % (test code = IM GRANULOCYTES %) 0.1 0.0- 1.0 [facility] HospitalAutomated blood neutrophil count 2019-11-24 05:10:00* Test Item Value Reference Range Interpretation Comments Neutrophils # (Auto) (test code = 751-8) 4.7 2.1-6.9 [facility] HospitalBlood lymphocytes count (number/volume) 2019-11-24 05:10:00* Test Item Value Reference Range Interpretation Comments Lymphocytes # (Auto) (test code = 70331-3) 2.5 1.0-3.2 [facility] HospitalBlood monocytes automated count (number/volume)2019-11-24 05:10:00* Test Item Value Reference Range Interpretation Comments Monocytes # (Auto) (test code = 742-7) 0.8 0.2-0.8 [facility] HospitalAutomated blood eosinophil count 2019-11-24 05:10:00* Test Item Value Reference Range Interpretation Comments Eosinophils # (Auto) (test code = 711-2) 0.3 0.0-0.4 [facility] HospitalAutomated blood basophil count (count/volume)2019-11-24 05:10:00* Test Item Value Reference Range Interpretation Comments Basophils # (Auto) (test code = 704-7) 0.0 0.0-0.1 [facility] HospitalFluoroscopic procedure less than one hour zuaoyjmi5386-93-55 05:10:00* Test Item Value Reference Range Interpretation Comments Absolute Immature Granulocyte (auto (fernando t code = Absolute Immature Granulocyte (auto) 0.01 0-0.1 [facility] plasma sodium measurement (moles/volume)2019-11-24 05:10:00* Test Item Value Reference Range Interpretation Comments Sodium Level (test code = 2951-2) 141 136-145 [facility] or plasma potassium measurement (moles/volume)2019-11-24 05:10:00* Test Item Value Reference Range Interpretation Comments Potassium Level (test code = 2823-3) 3.5 3.5-5.1 [facility] or plasma chloride measurement (moles/volume)2019-11-24 05:10:00* Test Item Value Reference Range Interpretation Comments Chloride Level (test code = 2075-0) 107 98-107 [facility] or plasma carbon dioxide, total measurement (moles/volume)2019-11-24 05:10:00* Test Item Value Reference Range Interpretation Comments Carbon Dioxide Level (test code = 2028-9) 27 22-29 [facility] or plasma anion kkm1778-58-25 05:10:00* Test Item Value Reference Range Interpretation Comments Anion Gap (test code = 03050-7) 10.5 8-16 [facility] or plasma urea nitrogen measurement (mass/volume)2019-11-24 05:10:00* Test Item Value Reference Range Interpretation Comments Blood Urea Nitrogen (test code = 3094-0) 16 7-26 [facility] or plasma creatinine measurement (mass/volume)2019-11-24 05:10:00* Test Item Value Reference Range Interpretation Comments Creatinine (test code = 2160-0) 0.68 0.57-1.11 [facility] or plasma urea nitrogen/creatinine mass edato8744-54-29 05:10:00* Test Item Value Reference Range Interpretation Comments BUN/Creatinine Ratio (test code = 3097-3) 24 6-25 [facility] HospitalEstimated glomerular filtration rate (GFR) qftbnkjsqkkkm0623-01-21 05:10:00* Test Item Value Reference Range Interpretation Comments Estimat Glomerular Filtration Rate (test code = 453608711) > 60 >60 Ranges were taken from the National Kidney Disease Education Program and the [facility] [employer] literature.Reference ranges:60 or greater: Tpcouw32-31 ( for 3 consecutive months): Chronic kidney disease 15 or less: Kidney failureSeymour HospitalGlucose kpbihgxzbii7992-39-51 05:10:00* Test Item Value Reference Range Interpretation Comments Glucose Level (test code = FGY9595) 63 74-118 [facility] or plasma calcium measurement (mass/volume)2019-11-24 05:10:00* Test Item Value Reference Range Interpretation Comments Calcium Level (test code = 29818-4) 9.1 8.4-10.2 [facility] or plasma magnesium measurement (mass/volume)2019-11-24 05:10:00* Test Item Value Reference Range Interpretation Comments Magnesium Level (test code = 85295-3) 1.9 1.3-2.1 [facility] HospitalProthrombin time (PT) in platelet poor plasma by coagulation pqatd4215-02-39 04:40:00* Test Item Value Reference Range Interpretation Comments Prothrombin Time (test code = 5902-2) 12.6 11.9-14.5 [facility] HospitalINR in Platelet poor plasma by Coagulation chtfo8891-09-66 04:40:00* Test Item Value Reference Range Interpretation Comments Prothromb Time International Ratio (test code = 6301-6) 0.89 Oral Anticoagulant Therapy INR Values:1. Low Intensity Therapy 1.5 - 2.02 . Moderate Intensity Therapy 2.0 - 3.03. High Intensity Therapy(1) 2.5 - 3. 54. High Intensity Therapy(2) 3.0 - 4.05. Panic Value INR > 5.0 [facility] HospitalActivated partial thromboplastin time (aPTT) in platelet poor plasma by coagulation erdma3317-43-81 04:40:00* Test Item Value Reference Range Interpretation Comments Activated Partial Thromboplast Time (test code = 10971-7) 26.6 23.8-35.5 [facility] HospitalFluoroscopic procedure less than one hour msrmxcom0939-97-55 04:40:00* Test Item Value Reference Range Interpretation Comments Hemoglobin A1c Percent (test code = Hemoglobin A1c Percent) 12.9 4.0-7.0 [facility] HospitalPhosphorus wilsvknhpud2438-25-57 04:40:00 * Test Item Value Reference Range Interpretation Comments Phosphorus Level (test code = ORX6291) 3.4 2.3-4.7 [facility] or plasma total bilirubin measurement (mass/volume)2019-11-23 04:40:00* Test Item Value Reference Range Interpretation Comments Total Bilirubin (test code = 1975-2) 0.7 0.2-1.2 [facility] HospitalFluoroscopic procedure less than one hour xsvyilsh8579-74-91 04:40:00* Test Item Value Reference Range Interpretation Comments Aspartate Amino Transf (AST/SGOT) (test code = Aspartate Amino Transf (AST/SGOT)) 19 5-34 [facility] or plasma alanine aminotransferase measurement (enzymatic activity/volume)2019-11-23 04:40:00* Test Item Value Reference Range Interpretation Comments Alanine Aminotransferase (ALT/SGPT) (test code = 1742-6) 16 0-55 [facility] or plasma protein measurement (mass/volume)2019-11-23 04:40:00* Test Item Value Reference Range Interpretation Comments Total Protein (test code = 2885-2) 6.8 6.5-8.1 [facility] or plasma albumin measurement (mass/volume)2019-11-23 04:40:00* Test Item Value Reference Range Interpretation Comments Albumin (test code = 1751-7) 3.5 3.5-5.0 [facility] HospitalPlasma globulin measurement (mass/volume) 2019-11-23 04:40:00* Test Item Value Reference Range Interpretation Comments Globulin (test code = 78955-5) 3.3 2.3-3.5 [facility] or plasma albumin/globulin mass tzciu8612-69-62 04:40:00* Test Item Value Reference Range Interpretation Comments Albumin/Globulin Ratio (test code = 1759-0) 1.1 0.8-2.0 [facility] or plasma alkaline phosphatase measurement (enzymatic activity/volume)2019-11-23 04:40:00* Test Item Value Reference Range Interpretation Comments Alkaline Phosphatase (test code = 6768-6) 50 40-150 [facility] or plasma triglyceride measurement (mass/volume)2019-11-23 04:40:00* Test Item Value Reference Range Interpretation Comments Triglycerides Level (test code = 2571-8) 82 0-149 [facility] or plasma cholesterol measurement (mass/volume)2019-11-23 04:40:00* Test Item Value Reference Range Interpretation Comments Cholesterol Level (test code = 2093-3) 164 0-199 Less than 200 mg/dL Low Wuac195 - 239 mg/dL Borderline Vsbu502 m g/dl and greater High Risk [facility] or plasma cholesterol in LDL measurement (mass/volume) 2019-11-23 04:40:00* Test Item Value Reference Range Interpretation Comments LDL Cholesterol (test code = 2089-1) 82 60-130 [facility] or plasma cholesterol in HDL measurement (mass/volume)2019-11-23 04:40:00* Test Item Value Reference Range Interpretation Comments HDL Cholesterol (test code = 2085-9) 66 40-60 [facility] or plasma total cholesterol/cholesterol in HDL mass jhfzu2173-91-45 04:40:00* Test Item Value Reference Range Interpretation Comments Cholesterol/HDL Ratio (test code = 9830-1) 2.5 3.0-3.6 [facility] or plasma thyrotropin measurement by detection limit <= 0.005 miu/l (units/volume)2019-11-23 04:40:00* Test Item Value Reference Range Interpretation Comments Thyroid Stimulating Hormone (TSH) (test code = 28984-7) 0.401 0.350-4.940 [facility] or plasma creatine kinase measurement (enzymatic activity/volume)2019-11-22 18:00:00* Test Item Value Reference Range Interpretation Comments Creatine Kinase (test code = 2157-6) 182 29-168 [facility] or plasma creatine kinase MB measurement (mass/volume)2019-11-22 18:00:00* Test Item Value Reference Range Interpretation Comments Creatine Kinase MB (test code = 77395-3) 6.30 0-5.0 [facility] HospitalTroponin I measurement by highly sensitive enzyme gldtvmvieym3205-72-28 18:00:00* Test Item Value Reference Range Interpretation Comments Troponin I (test code = 96852-6) 0.008 0-0.300 [facility] HospitalFluoroscopic procedure less than one hour twwuhwcw5106-72-28 08:10:00* Test Item Value Reference Range Interpretation [...] complexity tests.Testing performed by [facility] [address] [id number] Director: Juan Sanchez M.D.IA # [id number] [facility] - BLEF3127-87-05 06:01:00 [facility] [address] [place] [address] Patient Name: JUAN ALBERTO DUONG MR #: [id number] : 1980 Age/Sex: 39/F Req #: [id number] Adm Physician: CHANO RODRIGUEZ MD Ordered by: KELECHI CHAMBERLAIN Report #: [id number] Location: [facility] Room/Bed: [place] [address] Procedure: [id number] HOPD/CX R 1 [facility] Exam Date: 11/22/19 Exam Time: 0545 [...] CA) 9.2 mg/dL 8.5-10.1 N HCG SERUM [id number] 20:17:00* Test Item Value Reference Range Interpretation Comments HCG SERUM QUAL (test code = HCGQL) NEGATIVE NEGATIVE This HCGQL test is NOT applicable for MALE patients.Check with nurse about probable order error.If Tumor Marker Test needed, nurse should order test "HCGTU"(Test #550.63229) [id number] 20:17:00* Test Item Value Reference Range Interpretation Comments TROPONIN-I (test code = TROPI) <0.015 ng/mL 0-0.045 N BASIC METABOLIC [id number] 20:08:00* Test Item Value Reference Range Interpretation [...] code = CA) mg/dL 8.5-10.1 HCG SERUM [id number] 20:08:00* Test Item Value Reference Range Interpretation Comments HCG SERUM QUAL (test code = HCGQL) NEGATIVE NEGATIVE This HCGQL test is NOT applicable for MALE patients.Check with nurse about probable order error.If Tumor Marker Test needed, nurse should order test "HCGTU"(Test #550.56950) [id number] 20:08:00* Test Item Value Reference Range Interpretation Comments TROPONIN-I (test code = TROPI) ng/mL 0-0.045 BASIC METABOLIC [id number] 20:07:00* Test Item Value Reference Range Interpretation [...] code = CA) mg/dL 8.5-10.1 HCG SERUM [id number] 20:07:00* Test Item Value Reference Range Interpretation Comments HCG SERUM QUAL (test code = HCGQL) NEGATIVE [id number] 20:07:00* Test Item Value Reference Range Interpretation Comments TROPONIN-I (test code = TROPI) ng/mL 0-0.045 [id number] 20:02:00* Test Item Value Reference Range Interpretation [...] skin infections -Liver cirrhosis - CBC W/O [id number] 19:56:00* Test Item Value Reference Range Interpretation [...] fL 6.7-11.0 N - XR CHEST 1 [id number] 19:51:00 FAX: Moshe Stephenson [phone] [place]: St: REG Name: JUAN ALBERTO NEVES [facility] : [birth year] Age/S: 38/F [address] Unit #: [id number] Loc: [place] [address] Phys: Moshe Stephenson MD Acct: [id number] Dis Date: Status: REG ER PHONE #: [phone] Exam Date: 08/04/20191943 FAX #: [phone] Reason: CHEST PAIN EXAMS: CPT CODE: [id number] XR CHEST 1 V 66618 REASON FOR EXAM: CHEST PAIN EXAM ORDER [...] GLUBED) 46 mg/dL 70-110 L TROPONIN I [id number] 10:49:00* Test Item Value Reference Range Interpretation Comments TROPONIN I RAPID (test code = TROPIRAP) 0.00 ng/mL 0.00-0.08 N - The use of serial sampling and testing protocol is a recommended practice- An elevated troponin level alone is often not sufficient for diagnosis of myocardial infarction. COMPREHENSIVE METABOLIC [id number] 08:44:00* Test Item Value Reference Range Interpretation [...] 70 Unit/L 45-117 N Completed by Nursing: [id number] 08:44:00* Test Item Value Reference Range Interpretation Comments MAGNESIUM (test code = MAG) 1.8 MG/DL 1.8-2.4 N Completed by Nursing: NONT PRO-BRAIN NATRIURETIC [id number] 08:44:00* Test Item Value Reference Range Interpretation Comments NT PRO-BRAIN NATRIURETIC PEPTI (test code = PROBNP) 92 PG/ML 0- 100 N Completed by Nursing: [id number]-[id number] 08:44:00* Test Item Value Reference Range Interpretation [...] Completed by Nursing: NO- XR CHEST 1 [id number] 08:37:00 Name: JUAN ALBERTO DUONG [place] : 1980 Age/S: 38 / F [address] [facility] [place] Unit #: [id number] Loc: [place] [address] Phys: Norah Carson MD Acct: [id number] Dis Date: Status: PRE ER PHONE #: [phone] Exam Date: 03/30/2019 0830 FAX #: Reason: chest pain EXAMS: CPT: [id number] XR CHEST 1 V 56331 Fluoro Time: DAP (Gy m2): Air Kerma [...] 1 Signed Report Name: JUAN ALBERTO DUONG [place] : 1980 Age/S: 38 / F [address] [facility] [place] Unit #: [id number] Loc: [place], [place] [address] Phys: Norah Carson MD Acct: [id number] Dis Date: Status: PRE ER PHONE #: [phone] Exam Date: 03/30/2019 0830 FAX #: Reason: chest pain EXAMS: CPT: [id number] XR CHEST 1 V 51899 Fluoro Time: DAP (Gy m2): Air Kerma (mGy): < Continued> Technologist: Keyona Joshi, RT(R); Dulce Gibbons, RT(R)(CT) Trnscb Date/Time: 03/30/2019 (0837) HienRK5 Orig Print D/T: S: 03/30/2019 (5734) PAGE 2 Signed Report CBC W/AUTO DIFF [...] DIFF/SCN CRITERIA ANKLE 3 VIEW RT - JFDS9220-22-95 18:21:00 [place] [address] Patient Name: JUAN ALBERTO DUONG MR #: [id number] : 1980 Age/Sex: 38/F Req #: [id number] Adm Physician: Ordered by: LILIANA KULKARNI MD Report #: [id number] Location: [facility] Room/Bed: Procedure: HOPD/ANKLE 3 VIEW RT - [...] LILIANA KULKARNI MD FOOT 2VIEW RT - GYTD9119-77-77 18:15:00 [facility] [place] [address] Patient Name: JUAN ALBERTO DUONG MR #: [id number] : 1980 Age/Sex: 38/F Req #: [id number] Adm Physician: Ordered by: LILIANA KULKARNI MD Report #: [id number] Location: [facility] Room/Bed: Procedure: HOPD/FOOT 2VIEW RT - HOPD [...] LILIANA KULKARNI MD Stress Test - Treadmill EIVM1441-45-22 09:46:00 [place] [address] Patient Name : JUAN ALBERTO DUONG MR #: [id number] : 1980 Age/Sex: 37/F Adm Physi cadence : JUNIOR QUINONEZ MD Admit Date : 02/22/18 Location : [facility] Room/Bed : [facility] 179-1 REPORT: Cardiology Repor t DATE OF [...] strongly negative prior cardiac biomarkers. D Job#: [id number] RI Sig nature Date Dictated By: ERMA MCGRATH MD Transcribed By: SMEDS on 02/23/18 <Electronically signed by ERMA MCGRATH MD><<Signature on File>> 02/24/18 1047 COPY TO: Bedside Qnlqhge1159-23-25 08:11:00* Test Item Value Reference Range Interpretation Comments Bedside Glucose (test code = 91247-8) 80 70-120 Meter ID: [id number] HospitalThyroid Stimulating Hormone (TSH)2018-02-23 07:56:00* Test Item Value Reference Range Interpretation Comments Thyroid Stimulating Hormone (TSH) (test code = 90938-5) 1.477 0.350-4.940 [facility] HospitalCreatine Kinase IE4852-05-49 07:12:00* Test Item Value Reference Range Interpretation Comments Creatine Kinase MB (test code = 55735-0) 0.80 0-5.0 [facility] HospitalTroponin B9810-98-48 07:12:00* Test Item Value Reference Range Interpretation Comments Troponin I (test code = QQZ7588) 0.001 0-0.300 [facility] HospitalCreatine Qdpjma7813-49-14 07:05:00* Test Item Value Reference Range Interpretation Comments Creatine Kinase (test code = 2157-6) 77 29-168 [facility] Dmddq6770-61-53 06:49:00* Test Item Value Reference Range Interpretation Comments Sodium Level (test code = 2951-2) 138 136-145 [facility] HospitalPotassium Kncvs5848-37-16 06:49:00* Test Item Value Reference Range Interpretation Comments Potassium Level (test code = 2823-3) 3.9 3.5-5.1 [facility] HospitalChloride Sinas5920-59-16 06:49:00* Test Item Value Reference Range Interpretation Comments Chloride Level (test code = 2075-0) 106 98-107 [facility] HospitalCarbon Dioxide Qlcuo2728-05-38 06:49:00* Test Item Value Reference Range Interpretation Comments Carbon Dioxide Level (test code = 2028-9) 25 22-29 [facility] HospitalAnion Hec1564-73-54 06:49:00* Test Item Value Reference Range Interpretation Comments Anion Gap (test code = 86475-5) 10.9 8-16 [facility] HospitalBlood Urea Zvpihedn7559-91-92 06:49:00* Test Item Value Reference Range Interpretation Comments Blood Urea Nitrogen (test code = 3094-0) 17 7-26 [facility] HospitalCreatinine2018-08-14 06:49:00* Test Item Value Reference Range Interpretation Comments Creatinine (test code = 2160-0) 0.66 0.57-1.11 [facility] HospitalBUN/Creatinine Yphic9219-10-04 06:49:00* Test Item Value Reference Range Interpretation Comments BUN/Creatinine Ratio (test code = 3097-3) 26 6-25 H [facility] HospitalEstimat Glomerular Filtration Rate 2018-02-23 06:49:00* Test Item Value Reference Range Interpretation Comments Estimat Glomerular Filtration Rate (test code = 97059-3) 60- >60 Ranges were taken from the National Kidney Disease Education Program and the [facility] Kidney Foundation literature.Reference ranges:60 or greater: Ytxdmv74-49 ( for 3 consecutive months): Chronic kidney disease 15 or less: Kidney failureSeymour HospitalGlucose Sgzab7680-40-10 06:49:00* Test Item Value Reference Range Interpretation Comments Glucose Level (test code = DGB5989) 120 74-118 H [facility] HospitalCalcium Oykju5942-68-29 06:49:00* Test Item Value Reference Range Interpretation Comments Calcium Level (test code = 55998-3) 8.9 8.4-10.2 [facility] HospitalTriglycerides Vgyng5504-28-13 06:49:00* Test Item Value Reference Range Interpretation Comments Triglycerides Level (test code = 2571-8) 102 0-149 [facility] HospitalCholesterol Ivyer0842-90-52 06:49:00* Test Item Value Reference Range Interpretation Comments Cholesterol Level (test code = 2093-3) 203 0-199 H Less than 200 mg/dL Low Cxsl440 - 239 mg/dL Borderline Hmcs916 m g/dl and greater High Risk [facility] HospitalLDL Wjfkybjxvqj3221-99-10 06:49:00* Test Item Value Reference Range Interpretation Comments LDL Cholesterol (test code = 2089-1) 90 60-130 [facility] HospitalHDL Hvptowyqcye5121-84-96 06:49:00* Test Item Value Reference Range Interpretation Comments HDL Cholesterol (test code = 2085-9) 93 40-60 H [facility] HospitalCholesterol/HDL Eeevw5727-03-07 06:49:00 * Test Item Value Reference Range Interpretation Comments Cholesterol/HDL Ratio (test code = 9830-1) 2.2 3.0-3.6 L [facility] HospitalProthrombin Aqlb9655-43-88 06:40:00* Test Item Value Reference Range Interpretation Comments Prothrombin Time (test code = 5902-2) 11.6 11.9-14.5 L [facility] HospitalProthromb Time International Ratio 2018-02-23 06:40:00* Test Item Value Reference Range Interpretation Comments Prothromb Time International Ratio (test code = 6301-6) 0.92 Oral Anticoagulant Therapy INR Values:1. Low Intensity Therapy 1.5 - 2.02 . Moderate Intensity Therapy 2.0 - 3.03. High Intensity Therapy(1) 2.5 - 3. 54. High Intensity Therapy(2) 3.0 - 4.05. Panic Value INR > 5.0 [facility] HospitalHemoglobin A1c Wvrhqcd6346-69-26 06:24:00 * Test Item Value Reference Range Interpretation Comments Hemoglobin A1c Percent (test code = Hemoglobin A1c Percent) 12.8 4.0-7.0 H [facility] HospitalWhite Blood Duqxs4507-74-97 06:14:00* Test Item Value Reference Range Interpretation Comments White Blood Count (test code = 6690-2) 8.75 4.8-10.8 [facility] HospitalRed Blood Vujim6685-86-12 06:14:00* Test Item Value Reference Range Interpretation Comments Red Blood Count (test code = 789-8) 3.48 3.6-5.1 L [facility] HospitalHemoglobin2018-08-14 06:14:00* Test Item Value Reference Range Interpretation Comments Hemoglobin (test code = 23839-6) 11.1 12.0-16.0 L [facility] HospitalHematocrit2018-08-14 06:14:00* Test Item Value Reference Range Interpretation Comments Hematocrit (test code = 4544-3) 33.7 34.2-44.1 L [facility] HospitalMean Corpuscular Rtylqd2642-39-40 06:14:00* Test Item Value Reference Range Interpretation Comments Mean Corpuscular Volume (test code = 787-2) 96.8 81-99 [facility] HospitalMean Corpuscular Mfuxncznev7989-15-98 06:14:00* Test Item Value Reference Range Interpretation Comments Mean Corpuscular Hemoglobin (test code = 785-6) 31.9 28-32 [facility] HospitalMean Corpuscular Hemoglobin Concent 2018-02-23 06:14:00* Test Item Value Reference Range Interpretation Comments Mean Corpuscular Hemoglobin Concent (test code = 786-4) 32.9 31-35 [facility] HospitalRed Cell Distribution Btdih0573-40-78 06:14:00* Test Item Value Reference Range Interpretation Comments Red Cell Distribution Width (test code = 88943-2) 12.7 11.7 -14.4 [facility] HospitalPlatelet Vuyot3237-34-84 06:14:00* Test Item Value Reference Range Interpretation Comments Platelet Count (test code = 777-3) 327 140-360 [facility] HospitalNeutrophils (%) (Auto)2018-02-23 06:14:00 * Test Item Value Reference Range Interpretation Comments Neutrophils (%) (Auto) (test code = 56873-3) 52.4 38.7-80.0 [facility] HospitalLymphocytes (%) (Auto)2018-02-23 06:14:00 * Test Item Value Reference Range Interpretation Comments Lymphocytes (%) (Auto) (test code = 736-9) 33.4 18.0-39.1 [facility] HospitalMonocytes (%) (Auto)2018-02-23 06:14:00* Test Item Value Reference Range Interpretation Comments Monocytes (%) (Auto) (test code = 5905-5) 9.5 4.4-11.3 [facility] HospitalEosinophils (%) (Auto)2018-02-23 06:14:00 * Test Item Value Reference Range Interpretation Comments Eosinophils (%) (Auto) (test code = 713-8) 4.2 0.0-6.0 [facility] HospitalBasophils (%) (Auto)2018-02-23 06:14:00* Test Item Value Reference Range Interpretation Comments Basophils (%) (Auto) (test code = 706-2) 0.3 0.0-1.0 [facility] HospitalIM GRANULOCYTES %2018-02-23 06:14:00* Test Item Value Reference Range Interpretation Comments IM GRANULOCYTES % (test code = IM GRANULOCYTES %) 0.2 0.0- 1.0 [facility] HospitalNeutrophils # (Auto)2018-02-23 06:14:00* Test Item Value Reference Range Interpretation Comments Neutrophils # (Auto) (test code = 751-8) 4.6 2.1-6.9 [facility] HospitalLymphocytes # (Auto)2018-02-23 06:14:00* Test Item Value Reference Range Interpretation Comments Lymphocytes # (Auto) (test code = 20181-0) 2.9 1.0-3.2 [facility] HospitalMonocytes # (Auto)2018-02-23 06:14:00* Test Item Value Reference Range Interpretation Comments Monocytes # (Auto) (test code = 742-7) 0.8 0.2-0.8 [facility] HospitalEosinophils # (Auto)2018-02-23 06:14:00* Test Item Value Reference Range Interpretation Comments Eosinophils # (Auto) (test code = 711-2) 0.4 0.0-0.4 [facility] HospitalBasophils # (Auto)2018-02-23 06:14:00* Test Item Value Reference Range Interpretation Comments Basophils # (Auto) (test code = 704-7) 0.0 0.0-0.1 [facility] HospitalAbsolute Immature Granulocyte (auto 2018-02-23 06:14:00* Test Item Value Reference Range Interpretation Comments Absolute Immature Granulocyte (auto (fernando t code = Absolute Immature Granulocyte (auto) 0.02 0-0.1 [facility] HospitalCHEST SINGLE (PORTABLE)2018-02-23 06:14:00 [facility] [address] [place] [address] Patient Name: JUAN ALBERTO DUONG MR #: [id number] : 1980 Age/Sex: 37/F Req #: [id number] Adm Physician: JUNIOR QUINONEZ MD Ordered by: 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 DIAZ 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 Report #: [id number] Location: [facility] Room/Bed: [place] [address] Procedure: [id number] 9 DX/CHEST SINGLE (PORTABLE) Exam [...] COPY TO: MARGARET DIAZ NP CT CHEST X5550-72-33 22:04:00 [place] [address] Patient Name: JUAN ALBERTO DUONG MR #: [id number] : 0 1980 Age/Sex: 37/F Req #: [id number] Adm Physician: JUNIOR QUINONEZ MD Ordered by: ERMA MCGRATH MD Report #: [id number] Loca tion: [facility] Room/Bed: [place] [address] Procedure: [id number] CT/CT CHEST W Exam Date: 02/22/18 Exam [...] 02/22/182215 COPY TO: ERMA MCGRATH MD Total Ibpvzmssr9453-10-54 21:17:00* Test Item Value Reference Range Interpretation Comments Total Bilirubin (test code = 1975-2) 0.6 0.2-1.2 [facility] HospitalAspartate Amino Transf (AST/SGOT) 2018-02-22 21:17:00* Test Item Value Reference Range Interpretation Comments Aspartate Amino Transf (AST/SGOT) (test code = Aspartate Amino Transf (AST/SGOT)) 21 5-34 [facility] HospitalAlanine Aminotransferase (ALT/SGPT) 2018-02-22 21:17:00* Test Item Value Reference Range Interpretation Comments Alanine Aminotransferase (ALT/SGPT) (test code = 1742-6) 23 0-55 [facility] HospitalTotal Xgejslo6601-27-16 21:17:00* Test Item Value Reference Range Interpretation Comments Total Protein (test code = 2885-2) 6.1 6.5-8.1 L [facility] HospitalAlbumin2018-08-13 21:17:00* Test Item Value Reference Range Interpretation Comments Albumin (test code = 1751-7) 3.2 3.5-5.0 L [facility] HospitalGlobulin2018-08-13 21:17:00* Test Item Value Reference Range Interpretation Comments Globulin (test code = 52346-5) 2.9 2.3-3.5 [facility] HospitalAlbumin/Globulin Hulba9679-75-70 21:17:00 * Test Item Value Reference Range Interpretation Comments Albumin/Globulin Ratio (test code = 1759-0) 1.1 0.8-2.0 [facility] HospitalAlkaline Zbixdclcvit3838-28-79 21:17:00* Test Item Value Reference Range Interpretation Comments Alkaline Phosphatase (test code = 6768-6) 52 40-150 [facility] HospitalCHEST SINGLE (PORTABLE)2018-02-22 17:42:00 [facility] [address] [place] [address] Patient Name: JUAN ALBERTO DUONG MR #: [id number] : 1980 Age/Sex: 37/F Req #: [id number] Adm Physician: Ordered by: BRO VELASQUEZ MD Report #: [id number] Location: ER Room/Bed: Procedure: [id number] DX/CHEST SINGLE (PORTABLE) Exam Date: 02/22/18 Exam [...] 1. No acute cardiopulmonary disease. Dictated by: Mack Echavarria M.D. on 02/22/2018 at 17:42 Electronically approved by: Mack Echavarria M.D. on 02/22/2018 at 17:42 Dictated By: MACK ECHAVARRIA MD Electronic ally Signed By: MACK ECHAVARRIA MD on 02/22/181741 Transcribed By: RICHARD on 02/10 COPY TO: BRO VELASQUEZ MD B-Type Natriuretic Peptide 2018-02-22 16:32:00* Test Item Value Reference Range Interpretation Comments B-Type Natriuretic Peptide (test code = 73836-7) 67.5 0-100 [facility] HospitalUrine HLV3567-85-52 16:17:00* Test Item Value Reference Range Interpretation Comments Urine WBC (test code = 5821-4) 0-5 0-5 [facility] HospitalUrine UIF3075-34-63 16:17:00* Test Item Value Reference Range Interpretation Comments Urine RBC (test code = 23784-4) 0-5 0-5 [facility] HospitalUrine Fiiyhrip7501-43-19 16:17:00* Test Item Value Reference Range Interpretation Comments Urine Bacteria (test code = 01057-5) NONE NONE [facility] HospitalUrine Epithelial Cawfh9083-46-76 16:17:00 * Test Item Value Reference Range Interpretation Comments Urine Epithelial Cells (test code = 95164-5) FEW NONE [facility] HospitalUrine Nybmr4191-48-83 16:17:00* Test Item Value Reference Range Interpretation Comments Urine Mucus (test code = 8247-9) FEW RARE H [facility] HospitalActivated Partial Thromboplast Time 2018-02-22 16:15:00* Test Item Value Reference Range Interpretation Comments Activated Partial Thromboplast Time (test code = 40875-0) 23.6 23.8-35.5 L [facility] HospitalUrine Iatov5105-53-09 16:13:00* Test Item Value Reference Range Interpretation Comments Urine Color (test code = 5778-6) YELLOW YELLOW [facility] HospitalUrine Lqplalw8161-68-62 16:13:00* Test Item Value Reference Range Interpretation Comments Urine Clarity (test code = 76974-3) CLEAR CLEAR [facility] HospitalUrine Specific Hnrqflt3981-79-45 16:13:00 * Test Item Value Reference Range Interpretation Comments Urine Specific [place] (test code = 5811-5) 1.010 1.010-1.02 5 [facility] HospitalUrine qJ5528-59-77 16:13:00* Test Item Value Reference Range Interpretation Comments Urine pH (test code = 62973-2) 7 5-7 [facility] Leukocyte Mjwhgmgz5098-59-34 16:13:00* Test Item Value Reference Range Interpretation Comments Urine Leukocyte Esterase (test code = 5799-2) NEGATIVE NEGATIVE [facility] Enfshmp5470-40-07 16:13:00* Test Item Value Reference Range Interpretation Comments Urine Nitrite (test code = 47546-0) NEGATIVE NEGATIVE [facility] Ytysxda5364-74-58 16:13:00* Test Item Value Reference Range Interpretation Comments Urine Protein (test code = 5804-0) NEGATIVE NEGATIVE [facility] Glucose (UA)2018-02-22 16:13:00* Test Item Value Reference Range Interpretation Comments Urine Glucose (UA) (test code = 2349-9) 3+ NEGATIVE H [facility] Qtnqfcl5221-41-45 16:13:00* Test Item Value Reference Range Interpretation Comments Urine Ketones (test code = 82043-2) NEGATIVE NEGATIVE [facility] Retkapzwayfn6851-38-63 16:13:00* Test Item Value Reference Range Interpretation Comments Urine Urobilinogen (test code = 48724-7) 0.2 0.2-1 [facility] Cnrpvdxec2655-03-98 16:13:00* Test Item Value Reference Range Interpretation Comments Urine Bilirubin (test code = 1978-6) NEGATIVE NEGATIVE [facility] Texom3137-48-19 16:13:00* Test Item Value Reference Range Interpretation Comments Urine Blood (test code = 49515-8) NEGATIVE NEGATIVE [facility]
== END 2020-05-16 14:45 | disposition home or self-care (01) ==
LOC: FSED 16:25 → ERHOLD 18:03 → MED/SURG 20:00 → MED/SURG2 05-14 17:29
PROVIDERS: ADMIT Internal Medicine; ATTEND Internal Medicine
DX: R07.89 Other chest pain (principal); N39.0 Urinary tract infection, site not specified; I10 Essential (primary) hypertension; E10.9 Type 1 diabetes mellitus without complications; Z79.4 Long term (current) use of insulin; I25.10 Atherosclerotic heart disease of native coronary artery without angina pectoris; Z95.5 Presence of coronary angioplasty implant and graft; Z11.59 Encounter for screening for other viral diseases; E78.5 Hyperlipidemia, unspecified; K59.00 Constipation, unspecified
CPT/HCPCS: 36415 ×3; 74022; 74177; 80048 ×2; 80061; 80076; 81001; 81003; 82550; 82553 ×2; 82948 ×4; 84443; 84484 ×2; 85025 ×3; 85379; 87086; 93005; 93306; 96372 ×2; 96374; 96375; 99284; G0378 ×4; J0696 ×4; J1650; J1817; J2270 ×2; J2405 ×2; J7030; J7050; U0002

== ENCOUNTER 2021-08-12 02:33 | Emergency (ER) | payer BC, OTHER ==
[~2021-08-12] VITALS: Ht 165.1 cm; Wt 64.4 kg
[~2021-08-12 02:33] MED LIST changes: +BASAGLAR K100 UNIT/1; +DIFLUCAN150 MG PO; +KEFLEX500 MG PO; +NOVOLOG100 UNIT/1 SC
[2021-08-12] MEDS ORDERED: FAMOTIDINE 20 MG/2 ML VIAL IV STA (02:58)
[2021-08-12] MEDS ORDERED: KETOROLAC TROMETHAMINE 30 MG/ML VIAL IV STA (02:58)
[2021-08-12] MEDS ORDERED: ONDANSETRON HCL INJ 2MG/ML 2ML 2 MG/ML VIAL IV STA (02:58)
[2021-08-12] MEDS ORDERED: SODIUM CHLORIDE 0.9% 1000ML 1,000 ML IV SCH (03:00)
[2021-08-12] MEDS ORDERED: ONDANSETRON HCL INJ 2MG/ML 2ML 2 MG/ML VIAL ONE (03:30)
[2021-08-12] MEDS ORDERED: KETOROLAC TROMETHAMINE 30 MG/ML VIAL ONE (03:30)
[2021-08-12] MEDS ORDERED: FAMOTIDINE 20 MG/2 ML VIAL IV ONE (03:31)
[2021-08-12] MEDS ORDERED: SODIUM CHLORIDE 0.9% 1000ML 1,000 ML ONE (03:31)
[2021-08-12] MEDS ORDERED: INSULIN REGULAR, HUMAN 100 UNIT/1 ML IV ONE (03:45)
[2021-08-12] MEDS ORDERED: IOPAMIDOL 370 MG/ML 200 ML INFUS..BTL INJ ONE (03:52)
[2021-08-12] MEDS ORDERED: SODIUM CHLORIDE 0.9% 50ML 50 ML ONE (03:52)
[2021-08-12] MEDS ORDERED: INSULIN REGULAR, HUMAN 100 UNIT/1 ML ONE (03:54)
[2021-08-12] MEDS ORDERED: SODIUM CHLORIDE 0.9% 500ML 500 ML IV ONE (04:30)
[2021-08-12] MEDS ORDERED: SODIUM CHLORIDE 0.9% 500ML 500 ML ONE (04:36)
[2021-08-12] MEDS ORDERED: ONDANSETRON ODT4 MG PO (04:44)
[2021-08-12] MEDS ORDERED: LEVSIN-SL0.125 MG SL (04:45)
[2021-08-12 05:02] VITALS: BP 141/79
== END 2021-08-12 05:02 | disposition home or self-care (01) ==
LOC: FSED 02:50
DX: R10.11 Right upper quadrant pain (principal); R11.2 Nausea with vomiting, unspecified; E10.65 Type 1 diabetes mellitus with hyperglycemia; H54.8 Legal blindness, as defined in USA; I10 Essential (primary) hypertension; E86.0 Dehydration; I25.10 Atherosclerotic heart disease of native coronary artery without angina pectoris; E78.5 Hyperlipidemia, unspecified; Z95.5 Presence of coronary angioplasty implant and graft
CPT/HCPCS: 36415; 74177; 80048; 80076; 81003; 82553; 82948; 84484; 85025; 96374; 96375; 96376; 99284; J1817; J1885; J2405; J7030; J7040; Q9967

== ENCOUNTER 2021-12-21 02:06 | Emergency (ER) | payer OTHER ==
[~2021-12-21] VITALS: Ht 165.1 cm; Wt 67.6 kg
[~2021-12-21 02:06] MED LIST changes: +LEVSIN-SL0.125 MG SL; +ONDANSETRON ODT4 MG PO
[2021-12-21] MEDS ORDERED: HYDROCODONE/APAP 5MG-325MG TAB PO ONE (03:15)
[2021-12-21] MEDS ORDERED: LIDOCAINE VISC 2% SOLN 15 ML UDC PO ONE (03:15)
[2021-12-21] MEDS ORDERED: KETOROLAC TROMETHAMINE 30 MG/ML VIAL IM ONE (03:15)
[2021-12-21] MEDS ORDERED: KETOROLAC TROMETHAMINE 30 MG/ML VIAL ONE (03:25)
[2021-12-21] MEDS ORDERED: HYDROCODONE/APAP 5MG-325MG TAB ONE (03:26)
[2021-12-21] MEDS ORDERED: LIDOCAINE VISC 2% SOLN 15 ML UDC ONE (03:28)
[2021-12-21] MEDS ORDERED: AMOXICILLIN500 M1 PO (03:40)
[2021-12-21] MEDS ORDERED: ULTRAM 50MG50 MG PO (03:41)
[2021-12-21] MEDS ORDERED: IBUPROFEN600 MG PO (03:43)
[2021-12-21 03:50] VITALS: BP 170/110
== END 2021-12-21 03:50 | disposition home or self-care (01) ==
LOC: FSED 02:37
DX: K08.89 Other specified disorders of teeth and supporting structures (principal); R07.9 Chest pain, unspecified; K02.9 Dental caries, unspecified; E10.69 Type 1 diabetes mellitus with other specified complication; I10 Essential (primary) hypertension; I25.10 Atherosclerotic heart disease of native coronary artery without angina pectoris; H54.7 Unspecified visual loss; E78.5 Hyperlipidemia, unspecified; Z95.5 Presence of coronary angioplasty implant and graft; F17.210 Nicotine dependence, cigarettes, uncomplicated
CPT/HCPCS: 93005; 96372; 99282; J1885